=== PATIENT | female | born 1970 | race Caucasian/White ===

== ENCOUNTER 2020-04-19 09:34 | Outpatient (REF) | payer OTHER, SELFPAY ==
[2020-04-19 11:40] LABS: Cholesterol 150 mg/dL; HDL Cholesterol 50 mg/dL; LDL Cholesterol Calculated 76 mg/dl; Triglycerides 124 mg/dL
[2020-04-19 11:45] LABS: Microalbum/Creatinine Ratio Ur 40.6 ug/mg cr
== END 2020-04-19 09:35 | disposition home or self-care (01) ==
LOC: HO.WFDLDS 09:34
PROVIDERS: Visit Provider Family Medicine
DX: Z20.828 Contact with and (suspected) exposure to other viral communicable diseases (principal); E11.65 Type 2 diabetes mellitus with hyperglycemia; E78.5 Hyperlipidemia, unspecified; Z00.00 Encounter for general adult medical examination without abnormal findings; Z13.9 Encounter for screening, unspecified
CPT/HCPCS: 80061; 82043; 87635

== ENCOUNTER 2021-06-19 11:33 | Outpatient (REF) | payer OTHER, SELFPAY ==
[2021-06-19 16:19] LABS: Influenza A PCR NEGATIVE (Negative); Influenza B PCR NEGATIVE (Negative); Resp Syncy Virus RNA Qual PCR NEGATIVE (Negative); SARS COV2 PCR INHOUSE POSITIVE (Negative)
== END 2021-06-19 11:34 | disposition home or self-care (01) ==
LOC: HO.LAB 11:33
PROVIDERS: Visit Provider Family Medicine
DX: Z20.822 Contact with and (suspected) exposure to COVID-19 (principal); B34.9 Viral infection, unspecified
CPT/HCPCS: 0241U

== ENCOUNTER 2021-08-26 09:58 | Outpatient (REF) | payer OTHER, SELFPAY ==
[2021-08-27 13:04] LABS: H Pylori Breath Test Negative (Negative)
== END 2021-08-26 09:59 | disposition home or self-care (01) ==
LOC: HO.LNP 09:58
PROVIDERS: PCP Family Medicine; Referring Provider Family Medicine; Visit Provider Nurse Practitioner Family
DX: Z01.818 Encounter for other preprocedural examination (principal); K21.9 Gastro-esophageal reflux disease without esophagitis; K62.5 Hemorrhage of anus and rectum; K58.1 Irritable bowel syndrome with constipation; K64.9 Unspecified hemorrhoids
CPT/HCPCS: 83013

== ENCOUNTER 2021-09-07 09:16 | Outpatient (REF) | payer OTHER, SELFPAY ==
[2021-09-07 10:29] LABS: Estimated Average Glucose 318 mg/dL; Hemoglobin A1c % 12.7 %
[2021-09-07 10:34] LABS: Alanine Aminotransferase 18 U/L (0-31); Alkaline Phosphatase 76 U/L (39-117); Anion Gap 13 (12-20); Aspartate Amino Transferase 12 U/L (5-31); Bilirubin Total 0.8 mg/dL (0.0-1.0); Blood Urea Nitrogen 11 mg/dL (9-16); Calcium 9.3 mg/dL (8.4-10.2); Carbon Dioxide 28 mmol/L (22-29); Chloride 101 mmol/L (96-108); Cholesterol 155 mg/dL; Estimated Glomerular Filt Rate > 60; Glucose Fasting 315 mg/dL (60-99); HDL Cholesterol 44 mg/dL; LDL Cholesterol Calculated 78 mg/dl; Potassium 4.3 mmol/L (3.3-5.1); Sodium 138 mmol/L (135-145); Total Protein 6.8 g/dL (6.5-8.0); Triglycerides 165 mg/dL
[2021-09-07 10:55] LABS: TSH reflex Free T4 0.85 uIU/mL (0.32-4.0)
[2021-09-07 11:06] LABS: Creatinine Urine 100.18 mg/dL; Microalbum/Creatinine Ratio Ur 15.9 ug/mg cr
== END 2021-09-07 09:17 | disposition home or self-care (01) ==
LOC: HO.LAB 09:16
PROVIDERS: PCP Family Medicine; Visit Provider Family Medicine
DX: Z00.00 Encounter for general adult medical examination without abnormal findings (principal); R73.01 Impaired fasting glucose; I10 Essential (primary) hypertension
CPT/HCPCS: 36415; 80053; 80061; 82043; 83036; 84443

== ENCOUNTER 2021-10-04 10:25 | Day surgery (SDC) | payer OTHER, SELFPAY ==
[2021-10-04 10:32] VITALS: BMI 30.5
[2021-10-04 10:39] VITALS: BP 155/68; PULSE 79; RESP 16; TEMP 36.3; O2SAT 98
--- NOTE | 2021-10-04 10:49 | P.CONAN_ITS ---
FORM[facility], [facility] Active Problems Active Problems: All Active Problems (Updated 08/06/21 @ 15:48 by Cj Rosas) COVID-19 (Acute) Viral illness (Acute) Palpitations (Acute) Anxiety (Acute) Hyperlipidemia (Acute) Diabetes type 2, uncontrolled (Acute) Diabetes mellitus type 2 in obese (Acute) Family History Family History Father Diabetes Hypertension Mother Hypertension Maternal Grandmother Cancer Family history of problems with anesthesia: No Surgical History Surgical History No pertinent past surgical history History of Problems with Anesthesia: No Social History Social History Housing: House Alcohol intake: never Patient Tobacco Use Status: Never used Tobacco e-Cigarette/Vaping Use: Never Used Use of substances other than those prescribed or required for medical reasons: No Are you DNR?: No Advance Directives: No Advance Directives Information Provided: Yes service: No Current occupational status: employed Cognitive needs: No Hearing needs: No Vision needs: No Meds Allergies Allergy/AdvReac Type Severity Reaction Status Date / Time No Known Allergies Allergy Verified 10/04/21 10:31 Home Medications Medication Instructions Recorded Confirmed Last Taken Type aspirin 81 mg tablet,delayed 81 mg PO DAILY 04/05/20 08/26/21 10/01/21 History release cetirizine 10 mg capsule (Zyrtec) 10 mg PO DAILY 04/05/20 08/26/21 Unknown History Exam Exam Date and Time: October 04, 2021 1049 Height,Weight and Vital Signs: Height 5 ft 2 in Weight 75.75 kg Last Vital Signs Temp 97.3 F 10/04/21 10:39 Pulse 79 10/04/21 10:39 Resp 16 10/04/21 10:39 BP 155/68 H 10/04/21 10:39 Pulse Ox 98 10/04/21 10:39 Airway Mallampati Class: III TM Dist: >3cm Neck ROM: Full Assessment and Plan Assessment Anesthesia Assessment: Anesthesia Plan Discussed and Chart Reviewed Final Anesthetic Review Family History of Problems with Anesthesia: No History of Problems with Anesthesia: No NPO: Yes ASA Class: II Final Preanesthetic Review: No Changes in Pt Med Stat, Meds/Allgs Chart Reviewed, Consent Obtained/Reviewed and Anes Risks/Benef Reviewed Patient Risk: Intermediate Procedure Risk: Low Anesthetic Plan Anesthetic Plan: MAC: Disposition: Standard PACU
[2021-10-04 11:07] LABS: Glucose, Whole Blood 162 mg/dL (60-115)
--- NOTE | 2021-10-04 11:12 | MHC.SHP ---
Pre-Procedural Eval Section A Date of Service: 10/04/21 Section B Chief Complaint: screening,reflux disease Relevant Family History (Specify if Yes): No Relevant Social History: None Present Medications: see Short Stay Collaborative assessment Medical History: Significant History (Anxiety Hyperlipidemia Diabetes mellitus type 2 in obese ) History of Previous Operations: No relevant previous surgery Allergies: Allergies Allergy/AdvReac Type Severity Reaction Status Date / Time No Known Allergies Allergy Verified 10/04/21 10:31 Review of Systems Sugical H&P ROS: Negative: Constitution, Cardiovascular, Respiratory, Neurological, Psychiatric, Hem-Onc, Allergic/Immunologic, Gastrointestinal, Genitourinary, Musculoskeletal, Integumentary, Endocrine and Eyes/Ears/Nose/Throat Exam Surgical H&P Exam: Normal: HEENT, Normal: Heart, Normal: Lungs, Normal: Extremities, Normal: Abdomen, Normal: Skin and Normal: Neurological Plan Diagnosis/Plan: Unchanged I have reviewed the history and physical and performed a pertinent physical examination on my patient. No changes have occurred unless specified.
--- NOTE | 2021-10-04 11:14 | P.OP_ITS ---
Operative Note Operative Note Date of Service: 10/04/21 Narrative: Operative Information Procedure Description: EGD, Colonoscopy Indication: reflux and colon screening Anesthesia: MAC FLEXIBLE TRANSORAL UPPER GASTROINTESTINAL ENDOSCOPY AND COLONOSCOPY PROCEDURE NOTE UPPER ENDOSCOPY Consent: Indications for the procedure and potential complications of bleeding, perforation, reaction to medications and missed diagnosis were discussed with the patient and informed consent was obtained. Instrument: Olympus GIF H 190 J mid size upper endoscope Monitoring: Vital signs and clinical assessment, continuous EKG monitoring, Pulse oximetry, Carbon Dioxide monitoring and blood pressure monitoring were done throughout the procedure. Procedure: The patient was placed in the left lateral decubitis position and pre-procedure medications were administered and a bite block was placed. The endoscope was inserted into the mouth and advanced under direct vision to the third part of duodenum. A careful inspection was made as the upper endoscope was withdrawn including a retroflexed examination of the proximal stomach; Findings and interventions are described below. Findings: Larynx:normal Esophagus: GE junction at 34 cm, diaphragm hiatus at 34 cm, partial non obstructive schatzki ring noted, irregular Z line, bx taken Stomach: mild patchy erythema. Biopsies were obtained. Grade 2 flap valve on retroflexed examination of the cardia. Duodenum: Normal bulb and descending duodenum, Intervention: Biopsies as noted above COLONOSCOPY Instrument: Olympus variable stiffness pediatric scope 190L Colonoscopy Monitoring: Vital signs and clinical assessment, continuous EKG monitoring, Pulse oximetry, Carbon Dioxide monitoring and blood pressure monitoring were done throughout the procedure. Colon withdrawal time was 11 minutes. Procedure: The patient was placed in the left lateral decubitis position and pre-procedure medications were administered. After a digital rectal examination of the ano-rectum, the video colonoscope was inserted into the rectum and advanced through the colon to the cecum/TI. The colonoscope was slowly withdrawn in a retrograde panoramic fashion and the colon mucosa was carefully examined including a retroflexed view of the rectum. Findings and interventions are described below. Procedure Difficulty:easy Findings: Terminal Ileum-normal Cecum:normal Ascending Colon: 10 mm sessile polyp removed with cold snare but not retrieved Transverse Colon -normal Descending Colon:normal Sigmoid Colon: normal Rectum: Retroflexion with small internal hemorrhoids, grade I with skin tags noted Anorectum - normal Colon preparation: [place] Bowel Preparation Scale Right colon; 2 Transverse colon: 2 Left colon; 1-2 (0 = Unprepared colon segment with mucosa not seen due to solid stool that cannot be cleared. 1 = Portion of mucosa of the colon segment seen, but other areas of the colon segment not well seen due to staining, residual stool and/or opaque liquid. 2 = Minor amount of residual staining, small fragments of stool and/or opaque liquid, but mucosa of colon segment seen well. 3 = Entire mucosa of colon segment seen well with no residual staining, small fragments of stool or opaque liquid) Impression and Post Procedure Diagnosis: Endoscopy Findings: gastritis schatzki ring Colonoscopy Findings: polyp internal hemorrhoids Plan: Await Pathology results Repeat Colonoscopy in 5 years due to polyp removed and equivocal prep on left colon or earlier if clinically indicated High fiber diet leaflet avoid straining at stool, epsom salts and sitz bath, anusol supps or cream cont with PPi since helping her symptoms Above findings were reviewed with the patient and relevant handouts were provided if indicated.
--- NOTE | 2021-10-04 11:14 | P.BOP_ITS ---
Brief Operative Note Date of Service: 10/04/21 Pre-op diagnosis: reflux and colon screening Post-op diagnosis: same Procedure: see op note Surgeon: Gato Carmichael MD Anesthesia: MAC Was an Sales Consulting Director used for this Procedure?: No Estimated blood loss (mL): 0 Condition: stable Disposition: PACU
[2021-10-04 11:49] VITALS: BP 130/62; PULSE 85; RESP 16; TEMP 37.1; O2SAT 100
[2021-10-04 12:09] VITALS: BP 121/63; PULSE 83; RESP 16; TEMP 36.7; O2SAT 97
== END 2021-10-04 12:32 | disposition home or self-care (01) ==
PROVIDERS: PCP Family Medicine; Visit Provider Internal Medicine Gastroenterology
PROC: (CPT 45385; principal; 2021-10-04 11:40)
DX: Z12.11 Encounter for screening for malignant neoplasm of colon (principal); Z83.71 Family history of colonic polyps; K63.5 Polyp of colon; K64.0 First degree hemorrhoids; K64.4 Residual hemorrhoidal skin tags; K58.1 Irritable bowel syndrome with constipation; K21.9 Gastro-esophageal reflux disease without esophagitis; K29.50 Unspecified chronic gastritis without bleeding; K22.2 Esophageal obstruction; K44.9 Diaphragmatic hernia without obstruction or gangrene; E11.9 Type 2 diabetes mellitus without complications; E78.5 Hyperlipidemia, unspecified; Z79.82 Long term (current) use of aspirin; Z79.84 Long term (current) use of oral hypoglycemic drugs; Z79.899 Other long term (current) drug therapy
CPT/HCPCS: 45385; 43239; 82947; 88305; 88342

== ENCOUNTER → 2021-10-15 09:52 | Outpatient (BNVA) | payer OTHER, SELFPAY | PROVIDERS: PCP Family Medicine; Referring Provider Family Medicine; Visit Provider Nurse Practitioner Family | DX: Z13.89 Encounter for screening for other disorder (principal) ==

== ENCOUNTER 2023-06-17 09:28 | Outpatient (REF) | payer OTHER, SELFPAY ==
[2023-06-17 09:58] LABS: Estimated Average Glucose 352 mg/dL; Hemoglobin A1c % 13.9 % (<6.0)
[2023-06-17 10:00] LABS: Appearance Urine Cloudy; Color Urine Yellow; Glucose Urine UA >=1000 mg/dL (Negative); Leukocyte Esterase Urine Trace (Negative); Nitrite Urine Negative (Negative); PH 5.5 (5.0-9.0); Specific Gravity - Urine >= 1.030 (1.005-1.025); UMIC TRIGGER UA YES; Urine Blood Small (1+) (Negative); Urine Ketones Trace mg/dL (Negative); Urine Protein Trace mg/dL (Neg-Trace)
[2023-06-17 10:03] LABS: Bacteria Urine Trace (None Seen); Hyaline Casts Urine 0-2 /LPF (0-2)
[2023-06-17 10:30] LABS: Creatinine Urine 162.25 mg/dL; Microalbum/Creatinine Ratio Ur 43.1 ug/mg cr (<30)
[2023-06-17 10:39] LABS: Alanine Aminotransferase 19 U/L (0-31); Albumin Level 4.1 g/dL (3.5-5.0); Alkaline Phosphatase 88 U/L (39-117); Anion Gap 16 (12-20); Aspartate Amino Transferase 14 U/L (5-31); Bilirubin Total 0.6 mg/dL (0.0-1.0); Blood Urea Nitrogen 11 mg/dL (9-16); Calcium 9.4 mg/dL (8.4-10.2); Carbon Dioxide 27 mmol/L (22-29); Chloride 100 mmol/L (96-108); Cholesterol 175 mg/dL (<200); Estimated Glomerular Filt Rate > 60; Glucose Fasting 325 mg/dL (60-99); HDL Cholesterol 49 mg/dL (>40); LDL Cholesterol Calculated 78 mg/dL (<100); Potassium 3.9 mmol/L (3.3-5.1); Sodium 139 mmol/L (135-145); Total Protein 7.4 g/dL (6.5-8.0); Triglycerides 242 mg/dL (<150)
[2023-06-17 10:46] LABS: TSH reflex Free T4 2.56 uIU/mL (0.32-4.0)
== END 2023-06-17 09:29 | disposition home or self-care (01) ==
LOC: HO.LAB 09:28
PROVIDERS: PCP Family Medicine; Visit Provider Family Medicine
DX: Z00.00 Encounter for general adult medical examination without abnormal findings (principal); I10 Essential (primary) hypertension; R73.01 Impaired fasting glucose
CPT/HCPCS: 36415; 80053; 80061; 81001; 82043; 82570; 83036; 84443

== ENCOUNTER 2023-06-17 14:21 | Outpatient (AMB) | payer OTHER, SELFPAY ==
--- NOTE | 2023-06-17 14:35 | MHC.PC.OV ---
Vital Signs 06/17/23 14:36 Height 5 ft 4 in Weight 138 lb 8 oz BMI 23.8 BP 128/74 Blood Pressure Location Lt brachial Position Standing Pulse 82 Pulse Source Pulse Oximeter Pulse Oximetry (%) 98 Oxygen Delivery Method Room Air Intake Visit Reasons: f/u diabetes Intake Note: Patient is here to follow up on diabetes. Patient complains of itchiness in left ear with a little pain. Patient had [facility] appointment at [phone], Dr. Kunz. Allergies No Known Allergies Allergy (Verified 06/17/23 14:37) Tobacco use date assessed: 06/17/23 HPI f/u diabetes HPI Details 52 y/o female presents to f/u diabetes. Cost significant barrier to her care so had asked nurse navigator for help with this. Had added Januvia last office visit in September. Last A1c 10/03/22 12.5%. A1c today 06/17/23 13.9%. She is on glipizide 10mg b.i.d, metformin 500mg b.i.d. She is no longer on Januvia, insulin glargine. She notes she had felt comfortable with Trulicity but had been unable to obtain this along with insulin glargine due to insurance issues. Pt reports polydipsia/polyuria. She reports she will see endocrinology in August. HPI Comments History of Present Illness Details Documentation assistance for Ludwin Mathew MD, was provided by Cj Rosas,? [employer] on 06/17/2023 3:06 PM GEOVANNA. Luca, Dr. Mathew, have read, observed, and verified documentation.? [facility] Surgical History No pertinent past surgical history Family History Father Diabetes Hypertension Mother Hypertension Maternal Grandmother Cancer Social History Housing: House Alcohol intake: never Patient Tobacco Use Status: Never used Tobacco e-Cigarette/Vaping Use: Never Used Second Hand Smoke Exposure: No service: No Current occupational status: employed Current occupational exposures/hazards: No Cognitive needs: No Hearing needs: No Vision needs: No Questionnaire PHQ-9 Over the last 2 weeks, how often have you been bothered by any of the following problems? 1. Little interest or pleasure in doing things: not at all 2. Feeling down, depressed, or hopeless: not at all 3. Trouble falling or staying asleep, or sleeping too much: not at all 4. Feeling tired or having little energy: not at all 5. Poor appetite or overeating: not at all 6. Feeling bad about yourself - or that you are a failure or have let yourself or your family down: not at all 7. Trouble concentrating on things, such as reading the newspaper or watching television: not at all 8. Moving or speaking so slowly that other people could have noticed. Or the opposite - being so fidgety or restless that you have been moving around a lot more than usual: not at all 9. Thoughts that you would be better off or of hurting yourself in some way: not at all Total score: 0 Source: Developed by Drs. Jerrell Warren, Radha Brantley, Stanley Boone and colleagues, with an educational donny from [employer]. Thrive Questionnaire Date Thrive assessed: 08/06/21 AUDIT C Alcohol Use Questionnaire (AUDIT-C) 1. How often do you have a drink containing alcohol?: Never 2. How many drinks containing alcohol do you have on a typical day when you are drinking?: 1 or 2 (on occasion) 3. How often do you have six or more drinks on one occasion?: Never Total Score: 0 HOLDEN-7 AMB Questionnaire HOLDEN-7 Date HOLDEN - 7 assessed: 06/17/23 Feeling nervous, anxious, or on edge: 0 = Not at all Not being able to stop or control worryin = Not at all Worrying too much about different things: 0 = Not at all Trouble relaxin = Not at all Being so restless that it is hard to sit still: 0 = Not at all Becoming easily annoyed or irritable: 0 = Not at all Feeling afraid as if something awful might happen: 0 = Not at all Total HOLDEN-7 score (0-4 normal; 5-9 mild; 10-14 moderate; 15-21 severe): 0 Source: Developed by Drs. Jerrell Warren, Stanley Magana and colleagues, with an educational donny from [employer]. Review of Systems Const Denies chills, Denies fatigue, Denies fever(s), Denies headache(s) and Denies weakness ENT Denies dizziness and Denies headache(s) Card Denies chest pain, Denies lightheadedness, Denies dyspnea and Denies other (Palpitations) Resp Denies cough, Denies dyspnea, Denies wheezing and Denies other ( shortness of breath) Musc Denies numbness and Denies tingling Neuro Denies dizziness, Denies headache(s), Denies numbness, Denies tingling, Denies paresthesias and Denies weakness Psych Denies anxiety and Denies depression Endo Denies fatigue, Reports polydipsia and Reports polyuria Aller/Immun Denies wheezing Physical exam (Primary Care) Vital Signs: Last Vital Signs Pulse 82 06/17/23 14:36 BP 128/74 06/17/23 14:36 Pulse Ox 98 06/17/23 14:36 Oxygen Delivery Method Room Air 06/17/23 14:36 BMI result Body Mass Index 23.8 Tobacco/Smoking Status: Tobacco use Status Tobacco use date assessed 06/17/23 06/17/23 14:39 Patient Tobacco Use Status Never used Tobacco 06/17/23 14:39 e-Cigarette/Vaping Use Never Used 06/17/23 14:39 PHQ-9: PHQ-9 Score PHQ-9: Total score 0 06/17/23 14:46 Thrive Assessment: Date of Thrive Assessment Date Thrive assessed 08/06/21 06/17/23 14:39 Const General: no acute distress and well developed Nutritional Appearance: well nourished Orientation/consciousness: patient oriented x3 [facility]: Yes normocephalic and Yes atraumatic Eyes General: appearance normal, both eyes and all related structures Pupils: Equal, round and reactive pupils present EOM: EOMs intact bilaterally Resp Effort & Inspection: normal respiratory effort Auscultation: clear to auscultation bilaterally Cardio Rate: regular rate Rhythm: regular rhythm Heart sounds: S1 normal heart sound present, S2 normal heart sound present, no gallops, no murmurs and no rubs Neuro General: patient oriented x3 and gait normal Cranial nerves: Yes Equal, round and reactive pupils present Psych Affect: normal affect Assessment and Plan Assessment & Plan (1) Diabetes type 2, uncontrolled: Code(s): E11.65 - Type 2 diabetes mellitus with hyperglycemia Plan: Ongoing?and?longstanding?uncontrolled?diabetes. A1c?13.9%?and?goal?is?less?than?7.0%. She?notes?increased?thirst?and?increased?urination.??She?has?increased?microalbumin?in?urine Will?try?Levemir?and?she?would?still?like?to?try?Trulicity. Continue?oral?medication Check BS 2 times a day Follow-up?in?2?months (2) Microalbuminuria: Code(s): R80.9 - Proteinuria, unspecified Plan: Increased?albumin?in?urine?and?we?discussed?that?this?is?likely?secondary?to?longstanding?high?blood?sugar Encouraged?improved?blood?sugar?control If not improving, may need RHYS/ARB therapy (3) Right foot pain: Code(s): M79.671 - Pain in right foot Plan: Exam?is?within?normal?limits Referred?to?Podiatry?as?patient?also?has?uncontrolled?diabetes (4) Diabetic nephropathy: Code(s): E11.21 - Type 2 diabetes mellitus with diabetic nephropathy Plan: As above Orders: Referrals Podiatry Referral E11.65 - Type 2 diabetes mellitus with hyperglycemia, M79.671 - Pain in right foot Medications: New insulin detemir U-100 (Levemir FlexPen) 100 units subcut DAILY 30 days 30 mL 2RF E11.21 - Type 2 diabetes mellitus with diabetic nephropathy, E11.65 - Type 2 diabetes mellitus with hyperglycemia blood sugar diagnostic (OneTouch Verio test strips) As directed 400 ea 4RF DX: E11.9, test blood sugar twice a day, 90 day E11.69 - Type 2 diabetes mellitus with other specified complication, E66.9 - Obesity, unspecified blood-glucose meter (OneTouch Verio Flex Meter) Test BS As directed, 999 days 1 ea 0RF E11.21 - Type 2 diabetes mellitus with diabetic nephropathy, E11.65 - Type 2 diabetes mellitus with hyperglycemia lancets Test BS 2 times a day As directed, 90 days 200 ea 3RF E11.21 - Type 2 diabetes mellitus with diabetic nephropathy, E11.65 - Type 2 diabetes mellitus with hyperglycemia Refilled dulaglutide 1.5 mg (0.5 mL) subcut QWEEK 90 days 6.5 mL 2RF E11.69 - Type 2 diabetes mellitus with other specified complication, E66.9 - Obesity, unspecified metformin 500 mg PO BID 30 days 60 tabs 0RF Coding Level of Care Code Est Pt Level 4 (73169) Diagnoses Diabetes type 2, uncontrolled E11.65 Microalbuminuria R80.9 Right foot pain M79.671 Diabetic nephropathy E11.21
[2023-06-17 14:36] VITALS: BP 128/74; PULSE 82; O2SAT 98; BMI 23.8
== END 2023-06-17 15:25 | disposition home or self-care (01) ==
PROVIDERS: PCP Family Medicine; Visit Provider Family Medicine
DX: E11.65 Type 2 diabetes mellitus with hyperglycemia (principal); R80.9 Proteinuria, unspecified; M79.671 Pain in right foot; E11.21 Type 2 diabetes mellitus with diabetic nephropathy
CPT/HCPCS: 99214

== ENCOUNTER 2023-07-02 12:52 | Outpatient (AMB) | payer OTHER, SELFPAY ==
[2023-07-02 12:54] VITALS: BP 118/68; PULSE 83; BMI 31.7
--- NOTE | 2023-07-02 12:54 | A.OFFPC_ITS ---
Vital Signs 07/02/23 12:54 Height 5 ft 1.25 in Weight 169 lb BMI 31.7 BP 118/68 Blood Pressure Location Rt brachial Position Sitting Pulse 83 Pulse Source Pulse Oximeter Intake Visit Reasons: Elev BP Intake Note: Patient is here with elevated blood pressure and high blood sugar, and headaches. Allergies No Known Allergies Allergy (Verified 06/17/23 14:37) Tobacco use date assessed: 07/02/23 HPI Elev BP HPI Details 53 y/o female presents to f/u elevated b lood pressure reading and diabetes. Ongoing c/o elevated blood sugars, and now has c/o high BPs and headaches. Pt reports morning blood sugar had been in the 300s. Blood pressure today is fine at 118/68. She is not on any medications for blood pressure. She notes a medical affairs manager had checked her blood pressure and was 177/93 Thursday. She states she does have a way to check her blood pressure at home. [facility] Surgical History No pertinent past surgical history Family History Father Diabetes Hypertension Mother Hypertension Maternal Grandmother Cancer Social History Housing: House Alcohol intake: never Patient Tobacco Use Status: Never used Tobacco e-Cigarette/Vaping Use: Never Used Second Hand Smoke Exposure: No service: No Current occupational status: employed Current occupational exposures/hazards: No Cognitive needs: No Hearing needs: No Vision needs: No Questionnaire Thrive Questionnaire Date Thrive assessed: 08/06/21 HOLDEN-7 AMB Questionnaire HOLDEN-7 Date HOLDEN - 7 assessed: 06/17/23 Source: Developed by Drs. Jerrell Warren, Radha Brantley, Stanley Boone and colleagues, with an educational donny from [employer]. Review of Systems Const Reports headache(s) ENT Reports headache(s) Neuro Reports headache(s) Physical exam (Primary Care) Vital Signs: Last Vital Signs Pulse 83 07/02/23 12:54 BP 118/68 07/02/23 12:54 BMI result Body Mass Index 31.7 Tobacco/Smoking Status: Tobacco use Status Tobacco use date assessed 07/02/23 07/02/23 13:01 Patient Tobacco Use Status Never used Tobacco 07/02/23 13:01 e-Cigarette/Vaping Use Never Used 07/02/23 13:01 Thrive Assessment: Date of Thrive Assessment Date Thrive assessed 08/06/21 07/02/23 13:01 Assessment and Plan Assessment & Plan (1) Diabetes type 2, uncontrolled: Code(s): E11.65 - Type 2 diabetes mellitus with hyperglycemia Plan: Blood?sugars?in?3?to?500s?range?on?just?some?metformin?and?glipizide. She?has?not?been?able?to?get?insulins?or?Trulicity. She?has?changed?insurance?and?Lantus?is?now?covered. Start?Lantus?10?units?q.p.m.?and?we?will?likely?need?to?increase?this Patient?would?still?like?to?try?Trulicity?which?she?was?able?to?procure?for?shor t?time?and?says?that?it?was?helping?with?appetite?and?weight?loss. Will?also?send?a?script?for?Trulicity?and?this?will?likely?require?a?prior?Auth Continue?glipizide?and?metformin?for?now Close?follow-up;?she?has?an?appointment?in?July (2) Proteinuria: Code(s): R80.9 - Proteinuria, unspecified Plan: She?has?history?of?diabetes?and?has?had?protein?in?her?urine Also?noting?some?elevated?blood?pressures Start?lisinopril?5?mg?daily. (3) Hypertension: Code(s): I10 - Essential (primary) hypertension Plan: Blood?pressures?have?been?elevated?at?times. She?notes?this?is?happening?with?headaches.??Pattern?of?her?headaches?appears?to ?be?tension?style?headac hes?and?this?is?likely?the?cause?of?her?increase?in?blood?pressure?rather?than?t he?other?way?around. Starting?lisinopril?as?she?also?has?protein?urea?and?diabetes. (4) Tension headache: Code(s): G44.209 - Tension-type headache, unspecified, not intractable Plan: This?appears?to?be?tension ?style?headaches?with?posterior?headache?and?neck?pain?as?well?as?bandlike?heada ches. Start?physical?therapy (5) Cervicalgia: Code(s): M54.2 - Cervicalgia Plan: As?above,?start?physical?therapy Orders: Orders 2 PT Evaluation and Treatment Today G44.209 - Tension-type headache, unspecified, not intractable, M54.2 - Cervicalgia Medications: New lisinopril 5 mg PO DAILY 30 tabs 1RF 30 days pen needle, diabetic (BD Ultra-Fine Micro Pen Needle) To treat high blood sugar QPM. As directed, 90 days 100 ea 3RF E11.65 - Type 2 diabetes mellitus with hyperglycemia insulin glargine (Lantus Solostar U-100 Insulin) 10 units (0.1 mL) subcut QPM 30 days 3 mL 3RF Discontinued insulin detemir U-100 (Levemir FlexPen) Discontinued Reason: Doctor's Order 100 units subcut DAILY 30 days 30 mL 2RF E11.21 - Type 2 diabetes mellitus with diabetic nephropathy, E11.65 - Type 2 diabetes mellitus with hyperglycemia Coding Level of Care Code Est Pt Level 4 (26577) Diagnoses Diabetes type 2, uncontrolled E11.65 Proteinuria R80.9 Hypertension I10 Tension headache G44.209 Cervicalgia M54.2
== END 2023-07-02 13:32 | disposition home or self-care (01) ==
PROVIDERS: PCP Family Medicine; Visit Provider Family Medicine
DX: E11.65 Type 2 diabetes mellitus with hyperglycemia (principal); R80.9 Proteinuria, unspecified; I10 Essential (primary) hypertension; G44.209 Tension-type headache, unspecified, not intractable; M54.2 Cervicalgia
CPT/HCPCS: 99214

== ENCOUNTER 2023-08-12 11:23 | Outpatient (AMB) | payer OTHER, SELFPAY ==
[2023-06-24 10:04] VITALS: BMI 28.8
--- NOTE | 2023-06-24 10:04 | MHC.OFFVIS ---
Intake Vital Signs 06/24/23 10:04 Height 5 ft 4 in Weight 168 lb BMI 28.8 Intake Visit Reasons: f/u diabetes Allergies No Known Allergies Allergy (Verified 06/17/23 14:37) PFSH Surgical History No pertinent past surgical history Family History Father Diabetes Hypertension Mother Hypertension Maternal Grandmother Cancer Social History Housing: House Alcohol intake: never Patient Tobacco Use Status: Never used Tobacco e-Cigarette/Vaping Use: Never Used Second Hand Smoke Exposure: No service: No Current occupational status: employed Current occupational exposures/hazards: No Cognitive needs: No Hearing needs: No Vision needs: No Coding
--- NOTE | 2023-08-12 11:33 | A.OFFPC_ITS ---
Vital Signs 06/24/23 10:04 08/12/23 11:39 Height 5 ft 4 in 5 ft 1.25 in Weight 168 lb 165 lb BMI 28.8 30.9 BP 120/68 Blood Pressure Location Lt brachial Position Sitting Intake Visit Reasons: f/u diabetes Intake Note: Patient is here to follow up on diabetes. Allergies No Known Allergies Allergy (Verified 08/12/23 11:34) Tobacco use date assessed: 08/12/23 Dental Screening Dental Screen Date: 08/12/23 Did you have a dental visit in the last 12 months?: Yes Did you have a dental problem in the last 6 months where you did not have access to dental care?: No Was dental information given to patient?: Patient has dentist HPI f/u diabetes HPI Details 53 y/o female presents to f/u diabetes a nd also tension style headaches and BP. Had started her on lantus and restarted Trulicity. Continued metformin and glipizide. Blood pressure today 120/68. She is on lisinopril 5mg. A1c today 08/12/23 14.0%. She reports she always takes her meds in the morning but sometimes forgets in the afternoons. [facility] Surgical History No pertinent past surgical history Family History Father Diabetes Hypertension Mother Hypertension Maternal Grandmother Cancer Social History Housing: House Alcohol intake: never Patient Tobacco Use Status: Never used Tobacco e-Cigarette/Vaping Use: Never Used Second Hand Smoke Exposure: No service: No Current occupational status: employed Current occupational exposures/hazards: No Cognitive needs: No Hearing needs: No Vision needs: No Questionnaire PHQ-9 Over the last 2 weeks, how often have you been bothered by any of the following problems? 1. Little interest or pleasure in doing things: not at all 2. Feeling down, depressed, or hopeless: not at all 3. Trouble falling or staying asleep, or sleeping too much: not at all 4. Feeling tired or having little energy: not at all 5. Poor appetite or overeating: not at all 6. Feeling bad about yourself - or that you are a failure or have let yourself or your family down: not at all 7. Trouble concentrating on things, such as reading the newspaper or watching television: not at all 8. Moving or speaking so slowly that other people could have noticed. Or the opposite - being so fidgety or restless that you have been moving around a lot more than usual: not at all 9. Thoughts that you would be better off or of hurting yourself in some way: not at all Total score: 0 Source: Developed by Drs. Jerrell Warren, Radha Brantley, Stanley Boone and colleagues, with an educational donny from [employer]. Thrive Questionnaire Date Thrive assessed: 08/12/23 I am a: Patient What is your living situation today?: I have a steady place to live Within the past 12 months, did the food you bought not last and you didn't have the money to get more?: Never true Within the past 12 months, did you worry whether your food would run out before you got money to buy more?: Never true Do you have trouble paying for medicines?: No Do you have trouble getting transportation to medical appointments?: No Do you have trouble paying your heating and electricity bill?: No Do you have trouble taking care of your child, family member or friend?: No Do you have trouble with day-to-day activities such as bathing, preparing meals, shopping, managing finances, etc.?: No Are you currently unemployed and looking for a job?: No Are you interested in more education?: No THRIVE Score: 0 AUDIT C Alcohol Use Questionnaire (AUDIT-C) 1. How often do you have a drink containing alcohol?: Never 3. How often do you have six or more drinks on one occasion?: Never Total Score: 0 HOLDEN-7 AMB Questionnaire HOLDEN-7 Date HOLDEN - 7 assessed: 08/12/23 Feeling nervous, anxious, or on edge: 0 = Not at all Not being able to stop or control worryin = Not at all Worrying too much about different things: 0 = Not at all Trouble relaxin = Not at all Being so restless that it is hard to sit still: 0 = Not at all Becoming easily annoyed or irritable: 0 = Not at all Feeling afraid as if something awful might happen: 0 = Not at all Total HOLDEN-7 score (0-4 normal; 5-9 mild; 10-14 moderate; 15-21 severe): 0 Source: Developed by Drs. Jerrell Warren, Radha Brantley, Stanley Boone and colleagues, with an educational donny from [employer]. Review of Systems Const Denies chills, Denies fatigue, Denies fever(s), Denies headache(s) and Denies weakness ENT Denies dizziness and Denies headache(s) Card Denies dyspnea Resp Denies cough, Denies dyspnea, Denies wheezing and Denies other (shortness of breath) Musc Denies numbness and Denies tingling Neuro Denies dizziness, Denies headache(s), Denies numbness, Denies tingling and Denies weakness Psych Denies anxiety and Denies depression Endo Denies fatigue Aller/Immun Denies wheezing Physical exam (Primary Care) Vital Signs: Last Vital Signs BP 120/68 08/12/23 11:39 BMI result Body Mass Index 30.9 Tobacco/Smoking Status: Tobacco use Status Tobacco use date assessed 08/12/23 08/12/23 11:35 Patient Tobacco Use Status Never used Tobacco 08/12/23 11:35 e-Cigarette/Vaping Use Never Used 08/12/23 11:35 PHQ-9: PHQ-9 Score PHQ-9: Total score 0 08/12/23 11:47 Thrive Assessment: Date of Thrive Assessment Date Thrive assessed 08/12/23 08/12/23 11:41 Const General: well developed; No acute distress Nutritional Appearance: well nourished Orientation/consciousness: patient oriented x3 [facility] Head: Yes normocephalic and Yes atraumatic Eyes General: appearance normal, both eyes and all related structures Pupils: Equal, round and reactive pupils present EOM: EOMs intact bilaterally Resp Effort & Inspection: normal respiratory effort Auscultation: clear to auscultation bilaterally Cardio Rate: regular rate Rhythm: regular rhythm Heart sounds: S1 normal heart sound present, S2 normal heart sound present, no gallops, no murmurs and no rubs Neuro General: patient oriented x3 and gait normal Cranial nerves: Yes Equal, round and reactive pupils present Psych Affect: normal affect Results AMB Hemoglobin A1c AMB Hemoglobin A1c 14.0 % Last Edit by Sara Coates CMA on 08/12/23 12:04 Assessment and Plan Assessment & Plan (1) Diabetes type 2, uncontrolled: Code(s): E11.65 - Type 2 diabetes mellitus with hyperglycemia Plan: Ongoing?uncontrolled?diabetes?with?many?barriers?to?good?control?including?consi stency?of?her?regimen?and?ability?to?obtain?her?medications?and ?have?them?paid?for. Patient?did?not?think?Lantus?was?covered?but?we more?recently?discovered?it?is. She?notes?that?her?co-pay?is?0?dollars?for?Lantus. Advised?we?lean?more?heavily?into?using?Lantus?and?she?agrees. Will?increase?Lantus?from?10?units?daily?to?16?units?daily?and?follow- up?closely?to?continue?adjusting?this. She?has?been?unable?to?get?Trulicity?at?current?dose?so?we?will?start?[facility]?at?0.75?mg?weekly Continue?oral?medications?as?prescribed?though?we?may?want?to?discuss?adjusting? these?as?well?since?she?seems?to?have?difficulty?with?consistency?of?medications ?more?than?once?per?day. After?end?of?visit,?as?patient?is?leaving?she?notes?that?she?does?in?fact?have?a n?appointment?with?endocrinology?next?month. She?and?I?will?follow-up?on?endocrinology?recommendations?at?her?next?visit (2) Hypertension: Code(s): I10 - Essential (primary) hypertension Plan: Blood?pressure?is?controlled.??Goal?is?less?than?140/90 Continue?current?medication Orders: Orders AMB Hemoglobin A1c Today Z13.9 - Encounter for screening, unspecified Medications: Changed From dulaglutide 1.5 mg (0.5 mL) subcut QWEEK 90 days 6.5 mL 2RF E11.69 - Type 2 diabetes mellitus with other specified complication, E66.9 - Obesity, unspecified To dulaglutide 1.5 mg subcut QWEEK 84 days 12 mL 2RF E11.69 - Type 2 diabetes mellitus with other specified complication, E66.9 - Obesity, unspecified From insulin glargine (Lantus Solostar U-100 Insulin) 10 units (0.1 mL) subcut QPM 30 days 3 mL 3RF To insulin glargine (Lantus Solostar U-100 Insulin) 16 units (0.16 mL) subcut QPM 30 days 6 mL 3RF Refilled blood sugar diagnostic ([employer] Verio test strips) As directed 200 ea 4RF DX: E11.9, test blood sugar twice a day, 90 day E11.69 - Type 2 diabetes mellitus with other specified complication, E66.9 - Obesity, unspecified metformin 500 mg PO BID 30 days 60 tabs 3RF glipizide ER 10 mg PO BID 30 days 60 tabs 2RF Coding Level of Care Code Est Pt Level 4 (12342) Diagnoses Diabetes type 2, uncontrolled E11.65 Hypertension I10
[2023-08-12 11:39] VITALS: BP 120/68; BMI 30.9
== END 2023-08-12 12:23 | disposition home or self-care (01) ==
PROVIDERS: PCP Family Medicine; Visit Provider Family Medicine
DX: E11.65 Type 2 diabetes mellitus with hyperglycemia (principal); I10 Essential (primary) hypertension
CPT/HCPCS: 83036; 99214

== ENCOUNTER 2023-08-27 15:09 | Outpatient (AMB) | payer OTHER, SELFPAY ==
[2023-08-27 15:21] VITALS: BP 146/74; PULSE 89; BMI 31.3
--- NOTE | 2023-08-27 15:21 | A.OFFVIS_ITS ---
Intake Vital Signs 08/27/23 15:21 Height 5 ft 1.25 in Weight 167 lb 1.766 oz BMI 31.3 BP 146/74 H Blood Pressure Location Lt brachial Position Sitting Pulse 89 Pulse Source Pulse Oximeter Intake Visit Reasons: DM2-lvm Intake Note: Patient presents today to follow up on D2MT. Last Diabetic Eye exam: 11/2022 Last Podiatry Visit:Doesn't have one Random Glucose: 311 mg/dl HgA1c: 14.0% 08/12/23 Quality Control Analyst Required: No Accompanied by: Self / Same As Patient Allergies No Known Allergies Allergy (Verified 08/27/23 15:26) HPI HPI Comments History of Present Illness Details 53 YO F who is seen in consultation for T2DM at the request of PCP. Initially diagnosed with T2DM in gestional DM 20 yrs ago . Was initially started on treatment with metformin and glyburide . Current regimen metformin 500 mg BID Glipizide 10 mg QD Trulicity 1.5 mg Qwkly not taken for 6 mos Lantus 16 units . Unfortunately, patient did not bring her sensor or glucometer to visit Checks sugars 1 times per day. Reports low sugars no . Most recent A1C 14, on 08/12/2013 . Family history of T2DM in father,maternal grandmother g. Has eyes checked yearly, last eye exam 2021 , denies retinopathy. Denies neuropathy, , sees podiatry. has nephropathy, on RHYS/ARB. sees nephrology Has HLD, on statin. Denies CAD. Not Had diabetes education. PFSH Surgical History No pertinent past surgical history Family History Father Diabetes Hypertension Mother Hypertension Maternal Grandmother Cancer Social History Housing: House Alcohol intake: never Patient Tobacco Use Status: Never used Tobacco e-Cigarette/Vaping Use: Never Used Second Hand Smoke Exposure: No service: No Current occupational status: employed Current occupational exposures/hazards: No Cognitive needs: No Hearing needs: No Vision needs: No Physical Exam Vital Signs: Last Vital Signs Pulse 89 08/27/23 15:21 BP 146/74 H 08/27/23 15:21 BMI result Body Mass Index 31.3 Absence of Cushingoid features. Absence of acromegalic features. Neck exam reveals nl size thyroid about 15 gms. No thyroid nodules palpable. No carotid bruits present. Lungs CTA. Heart S1 S2, Reg R/R. No M/R/ G. Skin exam reveals absence of vitiligo or acanthosis nigricans. Abdominal exam reveals Soft NT/ND with NA BS. No organomegaly present. Neck Other: . Extrem Other: Visual exam of foot performed. No ulcerations or open lesions. No onchomycosis, no callouses.Pulses 2 + distally Sensation intact to monofilament exam. Vibratory sensation sensed is intact with 128 Hz tuning fork Results Reviewed Results Reviewed: Laboratory Last Values Glucose (Clinic) 311 mg/dL (60-115) H 08/27/23 15:30 Assessment & Plan Assessment & Plan (1) Diabetes type 2, uncontrolled: Code(s): E11.65 - Type 2 diabetes mellitus with hyperglycemia Plan: This is a 53-year-old white female with a history of type 2 diabetes being treated metformin, glipizide, Trulicity and basal insulin with poor glycemic control and known microvascular complications namely micro albuminuria. Plan is to have the patient check point cares before and after meals using glucometer or sensor and to bring the glucometer sensor to the follow-up appointments. Also scheduled appointment with diabetes educator and accounting machine servicer. Went over correlation of poor glycemic control to development and progression complications with patient. Lastly, I switched her Trulicity to Mounjaro and went over side effects of Mounjaro including but not limited to nausea, vomiting and rare risk of pancreatitis. We could start SGLT-2 inhibitor in the future but would hold off until better glycemic control to avoid yeast infection Orders: Referrals Diabetes Education Referral E11.65 - Type 2 diabetes mellitus with hyperglycemia Nutrition/Dietitian Referral E11.65 - Type 2 diabetes mellitus with hyperglycemia Medications: New tirzepatide (Mounjaro) 2.5 mg (0.5 mL) subcut QWEEK 2 mL 4RF 4 weeks Discontinued dulaglutide Discontinued Reason: Doctor's Order 1.5 mg subcut QWEEK 84 days 12 mL 2RF E11.69 - Type 2 diabetes mellitus with other specified complication, E66.9 - Obesity, unspecified Coding Level of Care Code New Pt Level 5 (69938) Diagnoses Diabetes type 2, uncontrolled E11.65
[2023-08-27 15:35] LABS: Glucose, Whole Blood 311 mg/dL (60-115)
== END 2023-08-27 16:27 | disposition home or self-care (01) ==
PROVIDERS: PCP Family Medicine; Visit Provider Internal Medicine Endocrinology, Diabetes & Metabolism
DX: E11.65 Type 2 diabetes mellitus with hyperglycemia (principal)
CPT/HCPCS: 99204

== ENCOUNTER → 2023-08-27 15:09 | Outpatient (BNVA) | payer OTHER, SELFPAY | PROVIDERS: PCP Family Medicine; Visit Provider Internal Medicine Endocrinology, Diabetes & Metabolism | DX: E11.65 Type 2 diabetes mellitus with hyperglycemia (principal); Z79.4 Long term (current) use of insulin | CPT/HCPCS: 82947 ==

== ENCOUNTER 2023-09-10 15:16 | Outpatient (AMB) | payer OTHER, SELFPAY ==
[2023-09-10 15:23] VITALS: BP 120/72; PULSE 88; O2SAT 96; BMI 31.9
--- NOTE | 2023-09-10 15:23 | MHC.PC.OV ---
Vital Signs 09/10/23 15:23 Height 5 ft 1.25 in Weight 170 lb 8 oz BMI 31.9 BP 120/72 Blood Pressure Location Lt brachial Position Sitting Pulse 88 Pulse Source Pulse Oximeter Pulse Oximetry (%) 96 Oxygen Delivery Method Room Air Intake Visit Reasons: f/u diabetes Intake Note: Patient is here to follow up on her diabetes today. Allergies No Known Allergies Allergy (Verified 09/10/23 15:26) Medication List - Last Reconciled 09/10/23 by Ludwin Mathew MD aspirin 81 mg PO DAILY atorvastatin 40 mg PO DAILY 30 days blood sugar diagnostic (OneTouch Verio test strips) As directed blood-glucose meter (OneTouch Verio Flex Meter) Test BS As directed, 999 days cetirizine (Zyrtec) 10 mg PO DAILY flash glucose sensor (FreeStyle Angie 2 Sensor kit) As directed glipizide ER 10 mg PO BID 30 days hydrocortisone 2.5% (Proctosol HC) [address] BID-QID PRN insulin glargine (Lantus Solostar U-100 Insulin) 16 units (0.16 mL) subcut QPM 30 days lancets Test BS 2 times a day As directed, 90 days lisinopril 5 mg PO DAILY 30 days metformin 500 mg PO BID 30 days pyfizclfabfe-Cc-ntfe-minerals tabs PO pantoprazole 40 mg PO DAILY pen needle, diabetic (BD Ultra-Fine Micro Pen Needle) To treat high blood sugar QPM. As directed, 90 days tirzepatide (Mounjaro) 2.5 mg (0.5 mL) subcut QWEEK 4 weeks Tobacco use date assessed: 09/10/23 Dental Screening Dental Screen Date: 09/10/23 HPI f/u diabetes HPI Details 53 y/o female presents to f/u diabetes. Had increased lantus last office visit and added back some Trulicity at a dose formulation that she should be able to obtain. She had seen Endocrinology Dr. De La Torre 08/27/23. Had switched her Trulicity to Mounjaro and had scheduled appt. with tobacco prevention health educator and screen printing supervisor. She?says?that?Mounjaro?has?also?been?put?on?back?order?so?she?has?not?started?this?yet. Blood?sugars?often?in?the?200s?and?sometimes?300s?still Blood pressure today 120/72. She is on lisinopril 5mg. PFSH Surgical History No pertinent past surgical history Family History Father Diabetes Hypertension Mother Hypertension Maternal Grandmother Cancer Social History Housing: House Alcohol intake: never Patient Tobacco Use Status: Never used Tobacco e-Cigarette/Vaping Use: Never Used Second Hand Smoke Exposure: No service: No Current occupational status: employed Current occupational exposures/hazards: No Cognitive needs: No Hearing needs: No Vision needs: No Questionnaire Thrive Questionnaire Date Thrive assessed: 08/12/23 HOLDEN-7 AMB Questionnaire HOLDEN-7 Date HOLDEN - 7 assessed: 08/12/23 Source: Developed by Drs. Jerrell Warren, Radha Brantley, Stanley Boone and colleagues, with an educational donny from [employer]. Review of Systems Const Denies chills, Denies fatigue, Denies fever(s), Denies headache(s) and Denies weakness ENT Denies dizziness and Denies headache(s) Card Denies chest pain, Denies lightheadedness, Denies dyspnea and Denies other (Palpitations) Resp Denies cough, Denies dyspnea, Denies wheezing and Denies other ( shortness of breath) Musc Denies numbness and Denies tingling Neuro Denies dizziness, Denies headache(s), Denies numbness, Denies tingling, Denies paresthesias and Denies weakness Psych Denies anxiety and Denies depression Endo Denies fatigue Aller/Immun Denies wheezing Physical exam (Primary Care) Vital Signs: Last Vital Signs Pulse 88 09/10/23 15:23 BP 120/72 09/10/23 15:23 Pulse Ox 96 09/10/23 15:23 Oxygen Delivery Method Room Air 09/10/23 15:23 BMI result Body Mass Index 31.9 Tobacco/Smoking Status: Tobacco use Status Tobacco use date assessed 09/10/23 09/10/23 15:30 Patient Tobacco Use Status Never used Tobacco 09/10/23 15:30 e-Cigarette/Vaping Use Never Used 09/10/23 15:30 Thrive Assessment: Date of Thrive Assessment Date Thrive assessed 08/12/23 09/10/23 15:30 Const General: no acute distress and well developed Nutritional Appearance: well nourished Orientation/consciousness: patient oriented x3 [facility] Head: Yes normocephalic and Yes atraumatic Eyes General: appearance normal, both eyes and all related structures Pupils: Equal, round and reactive pupils present EOM: EOMs intact bilaterally Resp Effort & Inspection: normal respiratory effort Auscultation: clear to auscultation bilaterally Cardio Rate: regular rate Rhythm: regular rhythm Heart sounds: S1 normal heart sound present, S2 normal heart sound present, no gallops, no murmurs and no rubs Neuro General: patient oriented x3 and gait normal Cranial nerves: Yes Equal, round and reactive pupils present Psych Affect: normal affect Assessment and Plan Assessment & Plan (1) Diabetes mellitus type 2 in obese: Code(s): E11.69 - Type 2 diabetes mellitus with other specified complication; E66.9 - Obesity, unspecified Plan: A1c?at?last?check?was?14.0 Endocrinology?has?switched?Trulicity?to?majora?but?patient?says?she?has?been?unable?to?obtain?this?due?to?back?order?as?well. Blood?sugars?in?200s?and?300s?still?when?she?checks?it Will?have?her?increase?Lantus?from?16?units?daily?to?20?units?daily. When?she?is?able?to?start?Anaro,?she?can?go?back?to?16?units?daily?and?patient?understands Continue?other?diabetes?medications?as?prescribed Encouraged?her?to?try?the?continue?his?monitor?which?she?has?not?started?yet Follow-up?with?diabetes?teaching Will?follow-up?with?her?in?November She?has?an?appointment?with?endocrinology?in?December (2) Hypertension: Code(s): I10 - Essential (primary) hypertension Plan: Blood?pressure?is?controlled.??Goal?is?less?than?140/90 Continue?current?medications Medications: Changed From insulin glargine (Lantus Solostar U-100 Insulin) 16 units (0.16 mL) subcut QPM 30 days 6 mL 3RF To insulin glargine (Lantus Solostar U-100 Insulin) 20 units (0.2 mL) subcut QPM 30 days 6 mL 3RF Coding Level of Care Code Est Pt Level 3 (48376) Diagnoses Diabetes mellitus type 2 in obese E11.69; E66.9 Hypertension I10
== END 2023-09-10 15:46 | disposition home or self-care (01) ==
PROVIDERS: PCP Family Medicine; Visit Provider Family Medicine
DX: E11.69 Type 2 diabetes mellitus with other specified complication (principal); E66.9 Obesity, unspecified; I10 Essential (primary) hypertension; Z68.31 Body mass index [BMI] 31.0-31.9, adult
CPT/HCPCS: 99213

== ENCOUNTER 2023-10-05 08:53 | Outpatient (AMB) | payer OTHER, SELFPAY ==
[2023-10-05 09:28] VITALS: BP 140/90; PULSE 101; TEMP 36.2; O2SAT 97; BMI 31.4
--- NOTE | 2023-10-05 09:28 | AM.OFFWIN_ITS ---
Intake Vital Signs 10/05/23 09:28 Height 5 ft 1 in Weight 166 lb BMI 31.4 BP 140/90 H Blood Pressure Location Lt brachial Position Sitting Pulse 101 H Pulse Source Pulse Oximeter Temp 97.2 F Temp Source Temporal Artery Scan Pulse Oximetry (%) 97 Oxygen Delivery Method Room Air Oxygen Flow Rate 97.2 Intake Visit Reasons: EP congestion cough sore throat sinus [id number] Intake Note: pt is here for cough, congestion, sore throat since thursday Patient Tobacco Use Status: Never used Tobacco Allergies No Known Allergies Allergy (Verified 10/05/23 09:29) Do you need a note to return to daycare/school/sports/work: Yes HPI HPI Comments History of Present Illness Details 53 y/o female who presents to [facility] with c/o Sore-throat and cough since . PFSH Surgical History No pertinent past surgical history Family History Father Diabetes Hypertension Mother Hypertension Maternal Grandmother Cancer Social History Housing: House Alcohol intake: never Patient Tobacco Use Status: Never used Tobacco e-Cigarette/Vaping Use: Never Used Second Hand Smoke Exposure: No service: No Current occupational status: employed Current occupational exposures/hazards: No Cognitive needs: No Hearing needs: No Vision needs: No Review of Systems Const All systems reviewed & are unremarkable except as noted in HPI and below Physical Exam Vital Signs: Last Vital Signs Temp 97.2 F 10/05/23 09:28 Pulse 101 H 10/05/23 09:28 BP 140/90 H 10/05/23 09:28 Pulse Ox 97 10/05/23 09:28 Oxygen Delivery Method Room Air 10/05/23 09:28 Oxygen Flow Rate 97.2 10/05/23 09:28 BMI result Body Mass Index 31.4 Const General: comfortable and no acute distress Orientation/consciousness: patient oriented x3 HEENT Head: Yes normocephalic Ears: external ears normal and TM abnormal with fluid behind the TM bilateral; not bulging, not with effusion, not erythematous, not perforated and not ret racted General nose exam: Normal nasal mucous membranes and turbinates present Face and sinus: Yes sinuses nontender Mouth: moist mucous membranes Throat: Yes posterior oropharynx normal Resp Effort & Inspection: normal respiratory effort and able to speak in complete sentences Auscultation: clear to auscultation bilaterally, no crackles, no rales, no rhonchi and no wheezes Cardio Rate: regular rate Rhythm: regular rhythm Neuro General: patient oriented x3 Results AMB Rapid Strep AMB Rapid Strep Negative Last Edit by Annamarie Mccullough MA on 10/05/23 10:11 Assessment & Plan Assessment & Plan (1) Cough in adult: Code(s): R05.9 - Cough, unspecified Plan: - OTC cough remedies - Rest and hydrate well - Acetaminophen for pain relief. (2) Upper respiratory infection: Code(s): J06.9 - Acute upper respiratory infection, unspecified Qualifiers: URI type: unspecified viral URI Qualified Code(s): J06.9 - Acute upper respiratory infection, unspecified Plan: - OTC cough remedies - Rest and hydrate well - Acetaminophen for pain relief. Orders: Orders SARS-CoV2/FLU/RSV Today J06.9 - Acute upper respiratory infection, unspecified, R05.9 - Cough, unspecified, R09.89 - Other specified symptoms and signs involving the circulatory and respiratory systems Medications: New doxycycline hyclate 100 mg PO BID 7 days 14 caps 0RF R05.9 - Cough, unspecified benzonatate 100 mg PO TID 30 caps 0RF R05.9 - Cough, unspecified Coding Level of Care Code Est Pt Level 3 (41742) Diagnoses Cough in adult R05.9 Viral upper respiratory tract infection J06.9 URI type: unspecified viral URI Time Spent (min) 15
== END 2023-10-05 10:22 | disposition home or self-care (01) ==
PROVIDERS: PCP Family Medicine; Visit Provider Nurse Practitioner Family
DX: R05.9 Cough, unspecified (principal); J06.9 Acute upper respiratory infection, unspecified
CPT/HCPCS: 99213

== ENCOUNTER 2023-10-05 10:13 | Outpatient (REF) | payer OTHER, SELFPAY ==
[2023-10-05 15:23] LABS: Influenza A PCR NEGATIVE (Negative); Influenza B PCR NEGATIVE (Negative); Resp Syncy Virus RNA Qual PCR NEGATIVE (Negative); SARS COV2 PCR INHOUSE NEGATIVE (Negative)
== END 2023-10-05 10:14 | disposition home or self-care (01) ==
LOC: HO.LAB 10:13
PROVIDERS: Visit Provider Nurse Practitioner Family
DX: Z11.52 Encounter for screening for COVID-19 (principal); R09.89 Other specified symptoms and signs involving the circulatory and respiratory systems; J06.9 Acute upper respiratory infection, unspecified; R05.9 Cough, unspecified
CPT/HCPCS: 0241U

== ENCOUNTER 2023-11-20 16:33 | Outpatient (REF) | payer OTHER, SELFPAY ==
[2023-11-20 19:18] LABS: Appearance Urine Clear; Color Urine Yellow; Glucose Urine UA >=1000 mg/dL (Negative); Leukocyte Esterase Urine Small (1+) (Negative); Nitrite Urine Negative (Negative); PH 5.5 (5.0-9.0); UMIC TRIGGER UACC YES; Urine Blood Negative (Negative); Urine Ketones Trace mg/dL (Negative); Urine Protein Negative (Neg-Trace)
[2023-11-20 20:33] LABS: Bacteria Urine None Seen (None Seen); Hyaline Casts Urine 0-2 /LPF (0-2); RBC Urine 0-2 /HPF (0-2); Squamous Epithelial Cell Urine 0-2 /HPF (0-2); UACC Culture Trigger YES
== END 2023-11-20 16:34 | disposition home or self-care (01) ==
LOC: HO.LAB 16:33
PROVIDERS: Visit Provider Family Medicine
DX: Z13.9 Encounter for screening, unspecified (principal); R82.90 Unspecified abnormal findings in urine
CPT/HCPCS: 81001; 81003; 87086

== ENCOUNTER 2023-11-20 16:40 | Outpatient (AMB) | payer OTHER, SELFPAY ==
[2023-11-20 16:44] VITALS: BP 122/60; PULSE 82; RESP 14; TEMP 36.6; O2SAT 98; BMI 31.0
--- NOTE | 2023-11-20 16:44 | MHC.OFFWIV ---
Intake Vital Signs 11/20/23 16:44 Height 5 ft 1 in Weight 164 lb 4 oz BMI 31.0 BP 122/60 Blood Pressure Location Rt brachial Position Sitting Respiration 14 Pulse 82 Pulse Source Pulse Oximeter Temp 97.8 F Temp Source Temporal Artery Scan Pulse Oximetry (%) 98 Oxygen Delivery Method Room Air Intake Visit Reasons: Possible UTI Patient Tobacco Use Status: Never used Tobacco Cathead Operator Required: No Accompanied by: Self / Same As Patient Allergies No Known Allergies Allergy (Verified 11/20/23 17:07) Medication List - Last Reconciled 11/20/23 by Ludmila Carvalho CNP aspirin 81 mg PO DAILY atorvastatin 40 mg PO DAILY 30 days benzonatate 100 mg PO TID blood sugar diagnostic (smsPREPTouch Verio test strips) As directed blood-glucose meter (smsPREPTouch Verio Flex Meter) Test BS As directed, 999 days blood-glucose sensor (FreeStyle Angie 3 Sensor device) As directed change every 14 days cetirizine (Zyrtec) 10 mg PO DAILY doxycycline hyclate 100 mg PO BID 7 days glipizide ER 10 mg PO BID 30 days hydrocortisone 2.5% (Proctosol HC) 1 appl DC BID-QID PRN insulin glargine (Lantus Solostar U-100 Insulin) 20 units (0.2 mL) subcut QPM 30 days lancets Test BS 2 times a day As directed, 90 days lisinopril 5 mg PO DAILY 30 days metformin 500 mg PO BID 30 days oechltahkutn-Sg-jfle-minerals tabs PO pantoprazole 40 mg PO DAILY pen needle, diabetic (BD Ultra-Fine Micro Pen Needle) To treat high blood sugar QPM. As directed, 90 days tirzepatide (Mounjaro) 2.5 mg (0.5 mL) subcut QWEEK 4 weeks Do you need a note to return to daycare/school/sports/work: No HPI HPI Comments History of Present Illness Details 53-year-old female presents with c/o right-sided low back pain for the past 2 days. She describes the pain as uncomfortable and tug sensation. She attributes her symptoms to possibly UTI. No fall, injury, or trauma. She denies dysuria, hematuria, or unusual urinary frequency. She is a diabetic and hydrates well. No constitutional symptoms. She has been taking tylenol with minimal relief. [facility] Surgical History No pertinent past surgical history Family History Father Diabetes Hypertension Mother Hypertension Maternal Grandmother Cancer Social History Housing: House Alcohol intake: never Patient Tobacco Use Status: Never used Tobacco e-Cigarette/Vaping Use: Never Used Second Hand Smoke Exposure: No service: No Current occupational status: employed Current occupational exposures/hazards: No Cognitive needs: No Hearing needs: No Vision needs: No Review of Systems Const Details: Const Denies chills, Denies fatigue, Denies fever(s), Denies headache(s) and Denies weakness ENT Denies change in vision, Denies dizziness, Denies headache(s), Denies hearing loss, Denies nasal congestion, Denies sinus pain, Denies sinus pressure and Denies sore throat Resp Denies cough, Denies dyspnea, Denies wheezing and Denies other (shortness of breath) Cardio Denies chest pain, Denies lightheadedness, Denies dyspnea and Denies other (palpitations) Neuro Denies dizziness, Denies headache(s), Denies numbness, Denies tingling and Denies weakness Musc Reports as per HPI Psych Denies anxiety, Denies depression, Denies memory?loss Endo Denies fatigue Aller/Immun Denies wheezing Physical Exam Vital Signs: Last Vital Signs Temp 97.8 F 11/20/23 16:44 Pulse 82 11/20/23 16:44 Resp 14 11/20/23 16:44 BP 122/60 11/20/23 16:44 Pulse Ox 98 11/20/23 16:44 Oxygen Delivery Method Room Air 11/20/23 16:44 BMI result Body Mass Index 31.0 Const Other: Const General: well developed; No acute distress Nutritional Appearance: well nourished Orientation/consciousness: patient oriented x3 HEENT Head: Yes normocephalic and Yes atraumatic Eyes General: appearance normal, both eyes and all related structures Pupils: Equal, round and reactive pupils present EOM: EOMs intact bilaterally Resp Effort & Inspection: normal respiratory effort Auscultation: clear to auscultation bilaterally Cardio Rate: regular rate Rhythm: regular rhythm Heart sounds: S1 normal heart sound present, S2 normal heart sound present, no gallops, no murmurs and no rubs Bruits: no abdominal aortic bruits and no carotid bruits Musc Tenderness to palpation of the right side of her lower back; no overt injury or trauma noted; no spinal or CVA tenderness Neuro General: patient oriented x3 and gait normal, no focal neuro deficit Cranial nerves: Yes Equal, round and reactive pupils present Psych Affect: normal affect Results AMB Urinalysis Dipstick UR Leukocytes Small Last Edit by Brenda Landeros [facility] on 11/20/23 16:54 UR Nitrite Negative Last Edit by Brenda Landeros [facility] on 11/20/23 16:54 UR Urobilinogen Normal Last Edit by Brenda Landeros [facility] on 11/20/23 16:54 UR Protein Negative Last Edit by Brenda Landeros [facility] on 11/20/23 16:54 UR Ph 6.0 Last Edit by Brenda Landeros [facility] on 11/20/23 16:54 UR Blood Negative Last Edit by Brenda Landeros [facility] on 11/20/23 16:54 UR Specific [place] 1.025 Last Edit by Brenda Landeros [facility] on 11/20/23 16:54 UR Ketone Trace Last Edit by Brenda Landeros [facility] on 11/20/23 16:54 UR Bilirubin Negative Last Edit by Brenda Landeros [facility] on 11/20/23 16:54 UR Glucose 1000 Last Edit by Brenda Landeros [facility] on 11/20/23 16:54 Results Reviewed Results Reviewed: Laboratory Last Values Urine pH (Clinic) 6.0 11/20/23 16:33 Specific [place] (Clinic) 1.025 11/20/23 16:33 Ur Protein (Clinic) Negative 11/20/23 16:33 Ur Ketones (Clinic) Trace 11/20/23 16:33 Urine Blood (Clinic) Negative 11/20/23 16:33 Urine Nitrite Negative 11/20/23 16:33 Urine Bilirubin (Clinic) Negative 11/20/23 16:33 Urobilinogen (Clinic) Normal 11/20/23 16:33 Leukocyte Esterase (Clinic) Small 11/20/23 16:33 Urine Glucose (Clinic) 1000 11/20/23 16:33 Assessment & Plan Assessment & Plan (1) Acute low back pain: Code(s): M54.50 - Low back pain, unspecified Plan: Right-sided low back pain x2 days Tenderness to palpation of the right side of her lower back; no overt injury or trauma noted; no spinal or CVA tenderness Urine dip reveals small amount of leukocytes, trace ketones, and significant amount of glucose; UTI not likely Continue to take Tylenol as needed Warm/cool compresses encouraged Will send urine to the lab for urinalysis and culture. Will make changes as needed Follow-up with worsening or new symptoms Verbalized understanding and agreed with treatment plan Coding Level of Care Code Est Pt Level 3 (17012) Diagnoses Acute low back pain M54.50
== END 2023-11-20 17:15 | disposition home or self-care (01) ==
PROVIDERS: PCP Family Medicine; Visit Provider Nurse Practitioner Family
DX: M54.50 Low back pain, unspecified (principal)
CPT/HCPCS: 81002; 99213

== ENCOUNTER 2023-12-03 14:14 | Outpatient (AMB) | payer OTHER, SELFPAY ==
--- NOTE | 2023-12-03 14:22 | A.OFFPC_ITS ---
Vital Signs 12/03/23 14:26 Height 5 ft 1 in Weight 165 lb 4 oz BMI 31.2 BP 138/66 Blood Pressure Location Lt brachial Position Sitting Pulse 83 Pulse Source Pulse Oximeter Pulse Oximetry (%) 98 Oxygen Delivery Method Room Air Intake Visit Reasons: f/u diabetes Intake Note: Follow up diabetes. Needs order for mammogram, due in January. Allergies No Known Allergies Allergy (Verified 12/03/23 14:23) Tobacco use date assessed: 09/10/23 Dental Screening Dental Screen Date: 09/10/23 HPI f/u diabetes HPI Details 53 y/o female presents to f/u diabetes. A1c today 12/03/23 is 10.0%, which did improve from 14% last time. She is on insulin glargine 16 units, metformin 500mg b.i.d, Mounjaro 2.5mg, glipizide 10mg b.i.d. She states she is tolerating her mounjaro. She notes she sees her educational therapy teacher next month. She states she notices sometimes in the middle of the night her blood sugars go down to 50-60s. Pt reports dry patches on her legs. HPI Comments History of Present Illness Details Documentation assistance for Ludwin Mathew MD, was provided by Cj Rosas, [employer] on 12/03/2023 at 3:22 PM EST. I, Dr. Mathew, have read, observed, and verified documentation. [facility] Surgical History No pertinent past surgical history Family History Father Diabetes Hypertension Mother Hypertension Maternal Grandmother Cancer Social History Housing: House Alcohol intake: never Patient Tobacco Use Status: Never used Tobacco e-Cigarette/Vaping Use: Never Used Second Hand Smoke Exposure: No service: No Current occupational status: employed Current occupational exposures/hazards: No Cognitive needs: No Hearing needs: No Vision needs: No Questionnaire Thrive Questionnaire Date Thrive assessed: 08/12/23 HOLDEN-7 AMB Questionnaire HOLDEN-7 Date HOLDEN - 7 assessed: 08/12/23 Source: Developed by Drs. Jerrell Warren, Radha Brantley, Stanley Boone and colleagues, with an educational donny from [employer]. Review of Systems Const Denies chills, Denies fatigue, Denies fever(s), Denies headache(s) and Denies weakness ENT Denies dizziness and Denies headache(s) Card Denies dyspnea Resp Denies cough, Denies dyspnea, Denies wheezing and Denies other (shortness of breath) Musc Denies numbness and Denies tingling Neuro Denies dizziness, Denies headache(s), Denies numbness, Denies tingling and Denies weakness Psych Denies anxiety and Denies depression Endo Denies fatigue Aller/Immun Denies wheezing Physical exam (Primary Care) Vital Signs: Last Vital Signs Pulse 83 12/03/23 14:26 BP 138/66 12/03/23 14:26 Pulse Ox 98 12/03/23 14:26 Oxygen Delivery Method Room Air 12/03/23 14:26 BMI result Body Mass Index 31.2 Tobacco/Smoking Status: Tobacco use Status Tobacco use date assessed 09/10/23 12/03/23 14:28 Patient Tobacco Use Status Never used Tobacco 12/03/23 14:28 e-Cigarette/Vaping Use Never Used 12/03/23 14:28 Thrive Assessment: Date of Thrive Assessment Date Thrive assessed 08/12/23 12/03/23 14:28 Const General: well developed; No acute distress Nutritional Appearance: well nourished Orientation/consciousness: patient oriented x3 HENMT Head: Yes normocephalic and Yes atraumatic Eyes General: appearance normal, both eyes and all related structures Pupils: Equal, round and reactive pupils present EOM: EOMs intact bilaterally Resp Effort & Inspection: normal respiratory effort Auscultation: clear to auscultation bilaterally Cardio Rate: regular rate Rhythm: regular rhythm Heart sounds: S1 normal heart sound present, S2 normal heart sound present, no gallops, no murmurs and no rubs Neuro General: patient oriented x3 and gait normal Cranial nerves: Yes Equal, round and reactive pupils present Psych Affect: normal affect Results AMB Hemoglobin A1c AMB Hemoglobin A1c 10 % Last Edit by Edna Underwood CMA on 12/03/23 14:56 Results Reviewed Results Reviewed: Laboratory Last Values Hgb A1c (Clinic) 10 % (4.0-6.0) H 12/03/23 14:54 Assessment and Plan Assessment & Plan (1) Diabetes type 2, uncontrolled: Code(s): E11.65 - Type 2 diabetes mellitus with hyperglycemia Plan: A1c?improved?from?14-10.0%?with?addition?of?Mounjaro Will?increase?further?increase?Mounjaro?from?2.5?mg?to?5.0?mg?weekly Continue?your?other?medications?as?prescribed Has?appointment?and?will?see?endocrinology?in?December She?has?had?a?few?low?blood?sugars?and?I?advised?her?to?try?a?snack?in?the?eveni ng/at?night (2) Breast cancer screening by mammogram: Code(s): Z12. - Encounter for screening mammogram for malignant neoplasm of breast Plan: Mammogram?ordered (3) Skin irritation: Code(s): R23.8 - Other skin changes Plan: Mild?dermatitis?of?left?leg?possibly?secondary?to?abrasion?from?shaving Will?give?her?a?steroid?cream If?not?improving?will?refer?to?Dermatology Orders: Orders AMB Hemoglobin A1c Today E11.65 - Type 2 diabetes mellitus with hyperglycemia MM tomosynthesis screening BI Today Z12. - Encounter for screening mammogram for malignant neoplasm of breast Medications: New betamethasone valerate 0.1% 1 appl topical BID 14 days PRN 15 grams 0RF skin irritation Changed From tirzepatide (Mounjaro) 2.5 mg (0.5 mL) subcut QWEEK 4 weeks 2 mL 4RF To tirzepatide 5 mg (0.5 mL) subcut QWEEK 4 weeks 2 mL 4RF Coding Level of Care Code Est Pt Level 3 (34694) Diagnoses Diabetes type 2, uncontrolled E11.65 Breast cancer screening by mammogram Z. Skin irritation R23.8
[2023-12-03 14:26] VITALS: BP 138/66; PULSE 83; O2SAT 98; BMI 31.2
== END 2023-12-03 15:27 | disposition home or self-care (01) ==
PROVIDERS: PCP Family Medicine; Visit Provider Family Medicine
DX: E11.65 Type 2 diabetes mellitus with hyperglycemia (principal); Z12.31 Encounter for screening mammogram for malignant neoplasm of breast; R23.8 Other skin changes
CPT/HCPCS: 83036; 99213

== ENCOUNTER 2024-01-04 14:17 | Outpatient (AMB) | payer OTHER, SELFPAY ==
[2024-01-04 14:20] VITALS: BP 140/72; PULSE 92; BMI 30.7
--- NOTE | 2024-01-04 14:20 | MHC.OFFVIS ---
Vital Signs 01/04/24 14:20 Height 5 ft 1 in Weight 162 lb 4.163 oz BMI 30.7 BP 140/72 H Blood Pressure Location Lt brachial Position Sitting Pulse 92 Pulse Source Pulse Oximeter Intake Visit Reasons: T2DM/CONFIRMED Intake Note: New patient presents today for D2MT. Last Diabetic Eye exam: Over 2 years ago Last Podiatry Visit: Doesn't have one. Random Glucose: 333 mg/dl HgA1c: 10.0% 12/03/23. Gis Mapping Technician Required: No Accompanied by: Self / Same As Patient Allergies No Known Allergies Allergy (Verified 01/04/24 14:25) Medication List - Last Reconciled 01/04/24 by Sammi Turner PA-C aspirin 81 mg PO DAILY atorvastatin 40 mg PO DAILY 30 days betamethasone valerate 0.1% 1 appl topical BID PRN 14 days blood sugar diagnostic (OneTouch Verio test strips) As directed blood-glucose meter (OneTouch Verio Flex Meter) Test BS As directed, 999 days blood-glucose sensor ([employer] TechnologiesStyle Angie 3 Sensor device) As directed change every 14 days cetirizine (Zyrtec) 10 mg PO DAILY glipizide ER 10 mg PO BID 30 days hydrocortisone 2.5% (Proctosol HC) 1 appl [place] BID-QID PRN insulin glargine (Lantus Solostar U-100 Insulin) 16 units (0.16 mL) subcut QPM 30 days lancets Test BS 2 times a day As directed, 90 days lisinopril 5 mg PO DAILY 30 days metformin 500 mg PO BID 30 days gkatougpedbr-Gq-eimk-minerals tabs PO pantoprazole 40 mg PO DAILY pen needle, diabetic (BD Ultra-Fine Micro Pen Needle) To treat high blood sugar QPM. As directed, 90 days tirzepatide 5 mg (0.5 mL) subcut QWEEK 4 weeks HPI HPI T2DM/CONFIRMED: Details: Patient is a 53-year-old female with a significant past medical history of hyperlipidemia, hypertension, type 2 diabetes presenting today for follow-up regarding her diabetes. Endo:A1c 12/03/23 is 10.0%, which did improve from 14% last time. She is on insulin glargine 16 units, metformin 500mg b.i.d, Mounjaro 2.5mg, glipizide 10mg b.i.d. -She states she is tolerating her mounjaro and at the last visit with her pcp was supposed to increase this but did not do that. med adjustment made her nervous cgm- Unable to download today but she does have her phone here with her. very high 67%, high 13%, in range 20%. No hypoglycemic events. she is on acei and atorvastatin. last lipids wnl. fam hx of t2dm PFSH Surgical History No pertinent past surgical history Family History (Reviewed 01/04/24 @ 14: by RASTA Adair) Father Diabetes Hypertension Mother Hypertension Maternal Grandmother Cancer Social History (Reviewed 01/04/24 @ 14: by RASTA Adair) Housing: House Alcohol intake: never Patient Tobacco Use Status: Never used Tobacco e-Cigarette/Vaping Use: Never Used Second Hand Smoke Exposure: No service: No Current occupational status: employed Current occupational exposures/hazards: No Cognitive needs: No Hearing needs: No Vision needs: No Physical Exam Vital Signs: Last Vital Signs Pulse 92 01/04/24 14:20 BP 140/72 H 01/04/24 14:20 BMI result Body Mass Index 30.7 Const Orientation/consciousness: patient oriented x3 Neck Neck: Yes no lymphadenopathy Thyroid: Thyroid normal Carotids: no bruits Resp Auscultation: clear to auscultation bilaterally Cardio Rate: regular rate Rhythm: regular rhythm Heart sounds: S1 normal heart sound present and S2 normal heart sound present Peripheral pulses: dorsalis pedis present Neuro General: patient oriented x3, gait normal and no focal motor deficits Extrem Other: Monofilament sensation intact bilaterally. Vibratory sensation intact bilaterally. Skin intact. General: Yes normal to inspection Results Reviewed Results Reviewed: Laboratory Last Values Glucose (Clinic) 333 mg/dL (60-115) H 01/04/24 14:30 Laboratory Tests 10/03/22 06/17/23 08/12/23 14:58 09:39 12:03 Sodium 139 Potassium 3.9 Chloride 100 Carbon Dioxide 27 Anion Gap 16 BUN 11 Creatinine 0.77 Estimated GFR > 60 Hgb A1c (Clinic) 12.5 H 14.0 H AST 14 ALT 19 Triglycerides 242 H Cholesterol 175 LDL Cholesterol, Calc 78 HDL Cholesterol 49 TSH 2.56 12/03/23 14:54 Sodium Potassium Chloride Carbon Dioxide Anion Gap BUN Creatinine Estimated GFR Hgb A1c (Clinic) 10 H AST ALT Triglycerides Cholesterol LDL Cholesterol, Calc HDL Cholesterol TSH Assessment & Plan Assessment & Plan (1) Diabetic nephropathy: Code(s): E11.21 - Type 2 diabetes mellitus with diabetic nephropathy Category: Medical Qualifiers: Diabetes mellitus type: type 2 Qualified Code(s): E11.21 - Type 2 diabetes mellitus with diabetic nephropathy Plan: mounjaro increased today. increased lantus to 20 u. rule of 15s discussed. we spent more than 1 hour in dama-cf-ryss time discussing the pathophysiology of diabetes, diet for diabetes, the complications associated with uncontrolled diabetes and different medications. We reviewed signs and symptoms of hyper and hypoglycemia. At her 1st visit she states that she was very overwhelmed and for got a lot of what was said. She was a hold off on seeing a kiln fireman as she does not have much time off from work. (2) Microalbuminuria: Code(s): R80.9 - Proteinuria, unspecified Category: Medical Plan: Follows with Nephrology. On Mounjaro. on lisinopril 5 mg. (3) Diabetes type 2, uncontrolled: Code(s): E11.65 - Type 2 diabetes mellitus with hyperglycemia Category: Medical Qualifiers: Glycemic state: with hyperglycemia Qualified Code(s): E11.65 - Type 2 diabetes mellitus with hyperglycemia Plan: as above. Labs prior to next appointment. (4) Hypertension: Code(s): I10 - Essential (primary) hypertension Category: Medical Qualifiers: Hypertension type: primary hypertension Qualified Code(s): I10 - Essential (primary) hypertension Plan: Discussed that her blood pressure is a bit elevated above goal. She has an upcoming appointment with her PCP in a month. I will see her back in 3 months and if still elevated will adjust mlood pressure.edication. She is working on diet and weight loss and hoping that this enough will lower her bp. Orders: Orders Microalbumin, Random (w Creat) Today E11.21 - Type 2 diabetes mellitus with diabetic nephropathy, R80.9 - Proteinuria, unspecified Hemoglobin A1c Today E11.21 - Type 2 diabetes mellitus with diabetic nephropathy, R80.9 - Proteinuria, unspecified Medications: New glucose (Dex4 Glucose) until symptoms of low blood sugar are controlled 16 grams (4 x 4 gram) PO Q15M PRN 100 tabs 0RF hypoglycemia Changed From insulin glargine (Lantus Solostar U-100 Insulin) 16 units (0.16 mL) subcut QPM 30 days 6 mL 3RF To insulin glargine (Lantus Solostar U-100 Insulin) 18 units (0.18 mL) subcut QPM 30 days 5.4 mL 3RF Refilled tirzepatide 5 mg (0.5 mL) subcut QWEEK 4 weeks 2 mL 4RF Coding Level of Care Code Est Pt Level 5 (63234) Complex EM visit Add On G2211 Diagnoses Diabetic nephropathy associated with type 2 diabetes mellitus E11.21 Diabetes mellitus type: type 2 Microalbuminuria R80.9 Uncontrolled type 2 diabetes mellitus with hyperglycemia E11.65 Glycemic state: with hyperglycemia Primary hypertension I10 Hypertension type: primary hypertension
[2024-01-04 14:33] LABS: Glucose, Whole Blood 333 mg/dL (60-115)
== END 2024-01-04 15:33 | disposition home or self-care (01) ==
PROVIDERS: PCP Family Medicine; Visit Provider Physician Assistant
DX: E11.21 Type 2 diabetes mellitus with diabetic nephropathy (principal); R80.9 Proteinuria, unspecified; E11.65 Type 2 diabetes mellitus with hyperglycemia; I10 Essential (primary) hypertension
CPT/HCPCS: 99215; G2211

== ENCOUNTER → 2024-01-04 14:17 | Outpatient (BNVA) | payer OTHER, SELFPAY | PROVIDERS: PCP Family Medicine; Visit Provider Physician Assistant | DX: E11.21 Type 2 diabetes mellitus with diabetic nephropathy (principal); E11.65 Type 2 diabetes mellitus with hyperglycemia; R80.9 Proteinuria, unspecified; I10 Essential (primary) hypertension; Z79.4 Long term (current) use of insulin | CPT/HCPCS: 82947 ==

== ENCOUNTER 2024-03-12 10:01 | Outpatient (REF) | payer OTHER, SELFPAY ==
[2024-03-12 11:01] LABS: Estimated Average Glucose 252 mg/dL; Hemoglobin A1c % 10.4 % (<6.0)
[2024-03-12 12:10] LABS: Creatinine Urine 117.93 mg/dL; Microalbum/Creatinine Ratio Ur 27.9 ug/mg cr (<30)
== END 2024-03-12 10:02 | disposition home or self-care (01) ==
LOC: HO.LAB 10:01
PROVIDERS: Physician Assistant; Absent Provider Nurse Practitioner Adult Health; PCP Family Medicine; Visit Provider Family Medicine
DX: E11.21 Type 2 diabetes mellitus with diabetic nephropathy (principal); R80.9 Proteinuria, unspecified
CPT/HCPCS: 36415; 82043; 82570; 83036

== ENCOUNTER 2024-03-14 14:04 | Outpatient (AMB) | payer OTHER, SELFPAY ==
[2024-03-14 14:15] VITALS: BP 122/66; PULSE 93; RESP 12; O2SAT 96; BMI 31.7
--- NOTE | 2024-03-14 14:15 | MHC.PC.OV ---
Vital Signs 03/14/24 14:15 Height 5 ft 1 in Weight 168 lb BMI 31.7 BP 122/66 Blood Pressure Location Rt brachial Position Sitting Respiration 12 Pulse 93 Pulse Source Pulse Oximeter Pulse Oximetry (%) 96 Oxygen Delivery Method Room Air Intake Visit Reasons: CPE with f/u labs and health maint. 30 mins Intake Note: Patient is here for her physical. Patient is taking mounjaro and experiencing nausea and constipation. Patient reports she drinks plenty of fluids so the constipation is abnormal. Patient needs labs placed. Patient reports she has pains in her hand from data power consultant. Patient reports pains are in the palm and top of her hands/wrist. Senior Front End Developer Required: No Accompanied by: Self / Same As Patient Allergies No Known Allergies Allergy (Verified 03/14/24 14:22) Tobacco use date assessed: 03/14/24 Dental Screening Dental Screen Date: 09/10/23 HPI HPI Comments History of Present Illness Details 53 y/o female with a past medical history of type 2 diabetes, hyperlipidemia, hypertension, GERD presenting for physical exam CV: On lisinopril 5mg daily, lipitor 40mg daily, aspirin. Type 2 diabetes: On metformin, lantus, glipizide, mounjaro. Last A1C 10.4%. Seeing [facility] health and safety trainer Mammo is due in Jun Colonoscopy at age 50-repeat recommended for 5 years due to polyp ROS CONSTITUTIONAL: Denies weight loss, fever and chills. HEENT: Denies changes in vision and hearing. RESPIRATORY: Denies SOB and cough. CV: Denies palpitations and CP GI: Denies abdominal pain, nausea, vomiting and diarrhea. : Denies dysuria and urinary frequency. MSK: pain in the right hand SKIN: Denies rash and pruritus. NEUROLOGICAL: Denies headache PSYCHIATRIC: Denies recent changes in mood. PHYSICAL EXAM: GENERAL: Alert and oriented x 3. NAD EYES: EOMI. Anicteric. HENT: Moist mucous membranes. No scleral icterus. No cervical lymphadenopathy. LUNGS: Clear to auscultation bilaterally. CARDIOVASCULAR: Regular rate and rhythm. No murmur. No JVD. ABDOMEN: Soft, non-tender +bs EXTREMITIES: No edema. Non-tender. SKIN: No rashes or lesions. Warm. NEUROLOGIC: No focal neurological deficits. CN II-XII grossly intact PSYCHIATRIC: Cooperative. Appropriate mood and affect [facility] Medical History (Updated 03/14/24 @ 14:59 by Zulma Andrade MD) Diabetes mellitus type 2 in obese Hyperlipidemia Diabetes type 2, uncontrolled GERD (gastroesophageal reflux disease) Diabetic nephropathy Tension headache Acute low back pain Cervicalgia Surgical History (Updated 03/14/24 @ 14:26 by Lis Fuentes CMA) History of ankle surgery Hx of section H/O dilation and curettage History of kidney surgery Family History (Updated 03/14/24 @ 14:28 by Lis Fuentes CMA) Father Diabetes Hypertension Mother Hypertension Maternal Grandmother Cancer Social History Housing: House Alcohol intake: never Patient Tobacco Use Status: Never used Tobacco e-Cigarette/Vaping Use: Never Used Second Hand Smoke Exposure: No service: No Current occupational status: employed Current occupational exposures/hazards: No Cognitive needs: No Hearing needs: No Vision needs: No Questionnaire PHQ-9 Over the last 2 weeks, how often have you been bothered by any of the following problems? 1. Little interest or pleasure in doing things: not at all 2. Feeling down, depressed, or hopeless: not at all 3. Trouble falling or staying asleep, or sleeping too much: not at all 4. Feeling tired or having little energy: more than half the days 5. Poor appetite or overeating: not at all 6. Feeling bad about yourself - or that you are a failure or have let yourself or your family down: not at all 7. Trouble concentrating on things, such as reading the newspaper or watching television: not at all 8. Moving or speaking so slowly that other people could have noticed. Or the opposite - being so fidgety or restless that you have been moving around a lot more than usual: not at all 9. Thoughts that you would be better off or of hurting yourself in some way: not at all Total score: 2 Depression Screening Interpretation: Negative (neg) Depression Screening Done: Yes 13810 - PHQ-9 Billing: Yes Source: Developed by Drs. Jerrell Warren, Radha Brantley, Stanley Boone and colleagues, with an educational donny from [employer]. Thrive Questionnaire Date Thrive assessed: 03/14/24 I am a: Patient What is your living situation today?: I have a steady place to live Within the past 12 months, did the food you bought not last and you didn't have the money to get more?: Never true Do you have trouble paying for medicines?: No Do you have trouble getting transportation to medical appointments?: No Do you have trouble paying your heating and electricity bill?: No Do you have trouble taking care of your child, family member or friend?: No Do you have trouble with day-to-day activities such as bathing, preparing meals, shopping, managing finances, etc.?: No Are you currently unemployed and looking for a job?: No Are you interested in more education?: No Please select the resources that you would like help with: None Currently or been in a relationship where the following occur: No concerns reported THRIVE Score: 0 AUDIT C Alcohol Use Questionnaire (AUDIT-C) 1. How often do you have a drink containing alcohol?: Never 3. How often do you have six or more drinks on one occasion?: Never Total Score: 0 HOLDEN-7 AMB Questionnaire HOLDEN-7 Date HOLDEN - 7 assessed: 03/14/24 Feeling nervous, anxious, or on edge: 0 = Not at all Not being able to stop or control worryin = Not at all Worrying too much about different things: 0 = Not at all Trouble relaxin = Not at all Being so restless that it is hard to sit still: 0 = Not at all Becoming easily annoyed or irritable: 0 = Not at all Feeling afraid as if something awful might happen: 0 = Not at all Total HOLDEN-7 score (0-4 normal; 5-9 mild; 10-14 moderate; 15-21 severe): 0 Source: Developed by Drs. Jerrell Warren, Radha Brantley, Stanley Boone and colleagues, with an educational donny from [employer]. HOLDEN-7 Assessment Billing HOLDEN-7 Assessment Tool: HOLDEN-7 Assessment 23315 Physical exam (Primary Care) Vital Signs: Last Vital Signs Pulse 93 03/14/24 14:15 Resp 12 03/14/24 14:15 BP 122/66 03/14/24 14:15 Pulse Ox 96 03/14/24 14:15 Oxygen Delivery Method Room Air 03/14/24 14:15 BMI result Body Mass Index 31.7 Tobacco/Smoking Status: Tobacco use Status Tobacco use date assessed 03/14/24 03/14/24 14:30 Patient Tobacco Use Status Never used Tobacco 03/14/24 14:19 e-Cigarette/Vaping Use Never Used 03/14/24 14:19 PHQ-9: PHQ-9 Score PHQ-9: Total score 2 03/20/24 16:55 Depression Screening Interpretation: Negative (neg) Thrive Assessment: Date of Thrive Assessment Date Thrive assessed 03/14/24 03/14/24 14:30 Currently or been in a relationship where the following occur: No concerns reported Assessment and Plan Assessment & Plan (1) Physical exam: Code(s): Z00.00 - Encounter for general adult medical examination without abnormal findings Plan: Preventive measures for age reviewed. UTD colonoscopy mammogram (2) Diabetic nephropathy: Code(s): E11.21 - Type 2 diabetes mellitus with diabetic nephropathy Qualifiers: Diabetes mellitus type: type 2 Qualified Code(s): E11.21 - Type 2 diabetes mellitus with diabetic nephropathy (3) Right hand pain: Code(s): M79.641 - Pain in right hand Plan: Referral to physiatry. Orders: Orders Complete Blood Count Auto Diff 03/14/24 E11.65 - Type 2 diabetes mellitus with hyperglycemia, E78.5 - Hyperlipidemia, unspecified, I10 - Essential (primary) hypertension, Z00.00 - Encounter for general adult medical examination without abnormal findings TSH reflex Free T4 03/14/24 E11.65 - Type 2 diabetes mellitus with hyperglycemia, E78.5 - Hyperlipidemia, unspecified, I10 - Essential (primary) hypertension, Z00.00 - Encounter for general adult medical examination without abnormal findings Comprehensive Met. Panel 03/14/24 E11.65 - Type 2 diabetes mellitus with hyperglycemia, E78.5 - Hyperlipidemia, unspecified, I10 - Essential (primary) hypertension, Z00.00 - Encounter for general adult medical examination without abnormal findings Lipid Panel 03/14/24 E11.65 - Type 2 diabetes mellitus with hyperglycemia, E78.5 - Hyperlipidemia, unspecified, I10 - Essential (primary) hypertension, Z00.00 - Encounter for general adult medical examination without abnormal findings Referrals Physiatry Referral M79.641 - Pain in right hand Medications: New Mounjaro (tirzepatide) for 4 weeks 2.5 mg (0.5 mL) subcut QWEEK 2 mL 3RF NS diclofenac sodium 1% (Voltaren Arthritis Pain) apply to single elbow, wrist or hand; for hand includes palm/fingers/back of hand 2 grams topical QID 100 grams 0RF Coding Level of Care Code Est Pt Prev Care 40-64y(92088) Diagnoses Physical exam Z00.00 Diabetic nephropathy associated with type 2 diabetes mellitus E11.21 Diabetes mellitus type: type 2 Right hand pain M79.641 Additional Codes HOLDEN-7 Assessment Billing - HOLDEN-7 Assessment Tool: HOLDEN-7 Assessment 60899 ([id number])
== END 2024-03-14 15:04 | disposition home or self-care (01) ==
LOC: HO.HMCFM 14:04
PROVIDERS: PCP Family Medicine; Visit Provider Internal Medicine
DX: Z00.00 Encounter for general adult medical examination without abnormal findings (principal); E11.21 Type 2 diabetes mellitus with diabetic nephropathy; M79.641 Pain in right hand

== ENCOUNTER → 2024-03-14 14:04 | Outpatient (BNVA) | payer OTHER, SELFPAY | PROVIDERS: PCP Family Medicine; Visit Provider Internal Medicine | DX: Z00.01 Encounter for general adult medical examination with abnormal findings (principal); M79.641 Pain in right hand; E11.21 Type 2 diabetes mellitus with diabetic nephropathy | CPT/HCPCS: 96127 ==

== ENCOUNTER 2024-03-14 15:08 | Outpatient (REF) | payer OTHER, SELFPAY ==
[2024-03-14 18:12] LABS: MANUAL DIFF FLAG NO
[2024-03-14 18:29] LABS: Basophils Absolute Auto 0.1 X10*3/uL (0.0-0.2); Basophils Percent Auto 0.7 % (0-2); Eosinophils Absolute Auto 0.3 X10*3/uL (0.0-0.4); Eosinophils Percent Auto 3.8 % (0-4); Hematocrit 41.5 % (37.0-47.0); Hemoglobin 14.1 g/dl (12.0-16.0); Imm Gran Abs Auto 0.02 X10*3/uL (0.00-0.03); Imm Gran Pct Auto 0.2 % (0.0-0.4); Lymphocytes Percent Auto 36.5 % (20-40); Mean Corpuscular Hemoglobin 29.7 pg (27.0-33.0); Mean Corpuscular Volume 87.6 fL (80.0-98.0); Mean Platelet Volume 10.8 fL (9.4-12.3); Monocytes Absolute Auto 0.5 X10*3/uL (0.1-1.2); Monocytes Percent Auto 6.5 % (2-11); Neutrophils Absolute Auto 4.3 x10*3/uL (2.0-8.3); Neutrophils Percent Auto 52.3 % (45-73); Platelet Count 281 X10*3/uL (160-400); Red Blood Count 4.74 X10*6/uL (4.20-5.50); Red Cell Distribution Width 12.7 % (11.0-16.0); White Blood Count 8.2 X10*3/uL (4.8-10.8)
[2024-03-14 18:40] LABS: Alanine Aminotransferase 22 U/L (0-31); Albumin Level 4.6 g/dL (3.5-5.0); Alkaline Phosphatase 68 U/L (39-117); Anion Gap 14 (12-20); Aspartate Amino Transferase 13 U/L (5-31); Bilirubin Total 0.7 mg/dL (0.0-1.0); Blood Urea Nitrogen 13 mg/dL (9-16); Calcium 10.5 mg/dL (8.4-10.2); Carbon Dioxide 26 mmol/L (22-29); Chloride 105 mmol/L (96-108); Cholesterol 169 mg/dL (<200); Estimated Glomerular Filt Rate > 60; Glucose Random 191 mg/dL (60-115); HDL Cholesterol 50 mg/dL (>40); LDL Cholesterol Calculated 85 mg/dL (<100); Potassium 4.2 mmol/L (3.3-5.1); Sodium 141 mmol/L (135-145); Total Protein 7.7 g/dL (6.5-8.0); Triglycerides 172 mg/dL (<150)
[2024-03-14 18:56] LABS: TSH reflex Free T4 0.83 uIU/mL (0.32-4.0)
== END 2024-03-14 15:09 | disposition home or self-care (01) ==
LOC: HO.WFDLDS 15:08
PROVIDERS: Visit Provider Internal Medicine
DX: Z00.00 Encounter for general adult medical examination without abnormal findings (principal); I10 Essential (primary) hypertension; E78.5 Hyperlipidemia, unspecified; E11.65 Type 2 diabetes mellitus with hyperglycemia
CPT/HCPCS: 36415; 80053; 80061; 84443; 85025

== ENCOUNTER 2024-05-06 15:08 | Outpatient (REF) | payer OTHER, SELFPAY ==
[2024-05-06 17:20] LABS: Parathyroid Hormone Intact 49.2 pg/mL (8.7-77.1)
[2024-05-09 21:54] LABS: Calcium, Ionized 5.1 mg/dL (4.7-5.5)
[2024-05-12 16:48] LABS: VITAMIN D (1,25 OH) D3 39 pg/mL; Vit D (1,25-Dihydroxy) Total 39 pg/mL (18-72); Vitamin D (1,25 OH) D2 <8 pg/mL
== END 2024-05-06 15:09 | disposition home or self-care (01) ==
LOC: HO.LAB 15:08
PROVIDERS: PCP Family Medicine; Visit Provider Physician Assistant
DX: E83.52 Hypercalcemia (principal); E11.65 Type 2 diabetes mellitus with hyperglycemia; I10 Essential (primary) hypertension; E78.5 Hyperlipidemia, unspecified
CPT/HCPCS: 36415; 82330; 82652; 82947; 83970

== ENCOUNTER 2024-05-06 15:08 | Outpatient (AMB) | payer OTHER, SELFPAY ==
--- NOTE | 2024-05-06 15:09 | MHC.OFFVIS ---
Vital Signs 05/06/24 15:10 Height 5 ft 1 in Weight 172 lb 13.478 oz BMI 32.7 BP 132/68 Blood Pressure Location Lt brachial Position Sitting Pulse 79 Pulse Source Pulse Oximeter Intake Visit Reasons: F/U T2DM/LVM Intake Note: Patient presents today for D2MT follow up visit. 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 Required: No Accompanied by: Self / Same As Patient Allergies No Known Allergies Allergy (Verified 05/06/24 15:18) Medication List - Last Reconciled 05/06/24 by Sammi Turner PA-C aspirin 81 mg PO DAILY atorvastatin 40 mg PO DAILY 30 days betamethasone valerate 0.1% 1 appl topical BID PRN 14 days blood sugar diagnostic ([employer] Verio test strips) As directed blood-glucose meter ([employer] Verio Flex Meter) Test BS As directed, 999 days blood-glucose sensor (EverPower Angie 3 Sensor device) As directed change every 14 days cetirizine (Zyrtec) 10 mg PO DAILY diclofenac sodium 1% (Voltaren Arthritis Pain) 2 grams topical QID glipizide ER 10 mg PO BID 30 days glucose (Dex4 Glucose) 16 grams (4 x 4 gram) PO Q15M PRN hydrocortisone 2.5% (Proctosol HC) 1 appl [place] BID-QID PRN insulin glargine (Lantus Solostar U-100 Insulin) 18 units (0.18 mL) subcut QPM lancets Test BS 2 times a day As directed, 90 days Lantus Solostar U-100 Insulin (insulin glargine) 18 units (0.18 mL) subcut QPM 30 days NS lisinopril 5 mg PO DAILY 30 days metformin 500 mg PO BID 30 days skovgtufgqok-Bx-pino-minerals tabs PO pantoprazole 40 mg PO DAILY pen needle, diabetic (BD Ultra-Fine Micro Pen Needle) To treat high blood sugar QPM. As directed, 90 days HPI HPI F/U T2DM/LVM: Details: Patient is a 53-year-old female with a significant past medical history of hyperlipidemia, hypertension, type 2 diabetes presenting today for follow-up regarding her diabetes. Endo: Her A1c in February was 10.5. She is on insulin glargine 22 units, metformin 500mg b.i.d, Mounjaro 2.5mg, glipizide 10mg b.i.d. -at our last visit I did increase her Mounjaro but she was getting constipation and nausea with this so decreased it back down to 2.5. does not tolerate trulicity -diarrhea increased doses of metformin caused GI distress did not tolerate glyburide cgm- usage 98%, average glucose 295, GMI 10.4%, glucose variability 25.9%. Very high 68%, hyperglycemic 26%, in range 6%, 0% hypoglycemia she is on acei and atorvastatin. last lipids wnl. fam hx of t2dm CV: Blood pressure today in the office is 132/68. She is currently on lisinopril 5 mg and atorvastatin 40 mg for cholesterol control. [facility] Medical History (Updated 05/06/24 @ 15:50 by Sammi Turner PA-C) Diabetes mellitus type 2 in obese Hyperlipidemia Diabetes type 2, uncontrolled GERD (gastroesophageal reflux disease) Diabetic nephropathy Tension headache Acute low back pain Cervicalgia Surgical History (Updated 03/14/24 @ 14:26 by Lis Fuentes CMA) History of ankle surgery Hx of section H/O dilation and curettage History of kidney surgery Family History (Updated 03/14/24 @ 14:28 by Lis Fuentes CMA) Father Diabetes Hypertension Mother Hypertension Maternal Grandmother Cancer Social History Housing: House Alcohol intake: never Patient Tobacco Use Status: Never used Tobacco e-Cigarette/Vaping Use: Never Used Second Hand Smoke Exposure: No service: No Current occupational status: employed Current occupational exposures/hazards: No Cognitive needs: No Hearing needs: No Vision needs: No Physical Exam Const Orientation/consciousness: patient oriented x3 Neck Neck: Yes no lymphadenopathy Thyroid: Thyroid normal Carotids: no bruits Resp Auscultation: clear to auscultation bilaterally Cardio Rate: regular rate Rhythm: regular rhythm Heart sounds: S1 normal heart sound present and S2 normal heart sound present Peripheral pulses: dorsalis pedis present Neuro General: patient oriented x3, gait normal and no focal motor deficits Extrem Other: Monofilament sensation intact bilaterally. Vibratory sensation intact bilaterally. Skin intact. General: Yes normal to inspection Results Reviewed Results Reviewed: Laboratory Tests 08/12/23 03/12/24 03/14/24 12:03 10:11 15:11 Sodium 141 Potassium 4.2 Chloride 105 Carbon Dioxide 26 Anion Gap 14 BUN 13 Creatinine 0.74 Estimated GFR > 60 Random Glucose 191 H Hgb A1c (Clinic) 14.0 H Hemoglobin A1c % 10.4 H AST 13 ALT 22 Alkaline Phosphatase 68 Cholesterol 169 LDL Cholesterol, Calc 85 HDL Cholesterol 50 Urine Creatinine 117.93 Urine Microalbumin 33.0 Microalb/Creat Ratio 27.9 Assessment & Plan Assessment & Plan (1) Diabetes type 2, uncontrolled: Code(s): E11.65 - Type 2 diabetes mellitus with hyperglycemia Category: Medical Qualifiers: Glycemic state: with hyperglycemia Qualified Code(s): E11.65 - Type 2 diabetes mellitus with hyperglycemia Plan: We will switch from Mounjaro to Ozempic. She did not tolerate Trulicity. We discussed risks and benefits and adverse effects of this medication. Continue glipizide and metformin. Increase Lantus to 30 units. Refuses mealtime insulin at this point. Would like time to think about this. I offered her referral to a shipwright helper but she does not have time at this point and we will let me know after the new year. We reviewed the adverse effects associated with the poorly controlled diabetes including increased risk of stroke, heart attack, blindness, amputations, kidney disease etc. (2) Hypertension: Code(s): I10 - Essential (primary) hypertension Category: Medical Qualifiers: Hypertension type: primary hypertension Qualified Code(s): I10 - Essential (primary) hypertension Plan: WNL. Continue current regimen (3) Hyperlipidemia: Code(s): E78.5 - Hyperlipidemia, unspecified Category: Medical Plan: As above (4) Hypercalcemia: Code(s): E83.52 - Hypercalcemia Category: Medical Plan: Last labs from physical exam showed hypercalcemia. Patient states that she has not heard about her labs and would like an explanation for this. I will order labs today and have patient follow back up in primary care. Orders: Orders Calcium, Ionized Today E83.52 - Hypercalcemia Parathyroid Hormone Intact Today E83.52 - Hypercalcemia Vitamin D 1,25 dihydroxy Today E83.52 - Hypercalcemia Medications: New semaglutide (Ozempic) 0.25 mg (0.368 mL) subcut QWEEK 3 mL 1RF Changed From Lantus Solostar U-100 Insulin (insulin glargine) 18 units (0.18 mL) subcut QPM 30 days 15 mL 3RF NS To Lantus Solostar U-100 Insulin (insulin glargine) 30 units (0.3 mL) subcut QPM 30 days 9 mL 3RF NS Discontinued insulin glargine (Lantus Solostar U-100 Insulin) Discontinued Reason: Doctor's Order 18 units (0.18 mL) subcut QPM 15 mL 3RF Coding Level of Care Code Est Pt Level 4 (31469) Complex EM visit Add On G2211 Diagnoses Uncontrolled type 2 diabetes mellitus with hyperglycemia E11.65 Glycemic state: with hyperglycemia Primary hypertension I10 Hypertension type: primary hypertension Hyperlipidemia E78.5 Hypercalcemia E83.52
[2024-05-06 15:10] VITALS: BP 132/68; PULSE 79; BMI 32.7
[2024-05-06 15:27] LABS: Glucose, Whole Blood 292 mg/dL (60-115)
== END 2024-05-06 15:55 | disposition home or self-care (01) ==
PROVIDERS: PCP Family Medicine; Visit Provider Physician Assistant
DX: E11.65 Type 2 diabetes mellitus with hyperglycemia (principal); I10 Essential (primary) hypertension; E78.5 Hyperlipidemia, unspecified; E83.52 Hypercalcemia

== ENCOUNTER 2024-06-17 14:45 | Outpatient (AMB) | payer OTHER, SELFPAY ==
--- NOTE | 2024-06-17 14:49 | A.OFFVIS_ITS ---
Vital Signs 06/17/24 14:54 Height 5 ft 1 in Weight 169 lb 12.095 oz BMI 32.1 BP 120/70 Blood Pressure Location Rt brachial Position Sitting Pulse 78 Pulse Source Pulse Oximeter Intake Visit Reasons: DM Intake Note: Patient presents today for a follow-up on Type 2 Diabetes Mellitus: Last Diabetic eye exam was on: DUE Last Podiatry exam was on: Does not see a [place] Support Worker Most recent HbA1c: 11.4%, 06/17/2024 Random Glucose- 180 mg/dL, Today Hide Puller Required: No Accompanied by: Self / Same As Patient Allergies No Known Allergies Allergy (Verified 06/17/24 14:55) Medication List - Last Reconciled 06/17/24 by Sammi Turner PA-C aspirin 81 mg PO DAILY atorvastatin 40 mg PO DAILY 30 days betamethasone valerate 0.1% 1 appl topical BID PRN 14 days blood sugar diagnostic (OneTouch Verio test strips) As directed blood-glucose meter (InSampleTouch Verio Flex Meter) Test BS As directed, 999 days blood-glucose sensor (LevlrStyle Angie 3 Sensor device) As directed change every 14 days cetirizine (Zyrtec) 10 mg PO DAILY diclofenac sodium 1% (Voltaren Arthritis Pain) 2 grams topical QID glipizide ER 10 mg PO BID 30 days glucose (Dex4 Glucose) 16 grams (4 x 4 gram) PO Q15M PRN hydrocortisone 2.5% (Proctosol HC) 1 appl ND BID-QID PRN insulin lispro (Humalog KwikPen (U-100) Insulin) 4 units (0.04 mL) subcut TID lancets Test BS 2 times a day As directed, 90 days Lantus Solostar U-100 Insulin (insulin glargine) 40 units (0.4 mL) subcut QPM 30 days NS lisinopril 5 mg PO DAILY 30 days metformin 500 mg PO BID 30 days zmuqynsbcswh-Zf-lvwk-minerals tabs PO pantoprazole 40 mg PO DAILY pen needle, diabetic (BD Ultra-Fine Micro Pen Needle) To treat high blood sugar QPM. As directed, 90 days semaglutide (Ozempic) 0.5 mg (0.736 mL) subcut QWEEK HPI HPI DM: Details: Patient is a 53-year-old female with a significant past medical history of hyperlipidemia, hypertension, type 2 diabetes presenting today for follow-up regarding her diabetes. Endo: Her A1c today is 11.1. She is on insulin glargine 30 units, metformin 500mg b.i.d, ozempic 0.25 mg weekly, glipizide 10mg b.i.d. Tolerating ozempic 0.25 mg. does not tolerate mounjaro does not tolerate trulicity -diarrhea increased doses of metformin caused GI distress did not tolerate glyburide cgm- usage 98%, average glucose 309, GMI 10.7%, glucose variability 26.9%. Very high 74%, hyperglycemic 18%, in range 8%, 0% hypoglycemia she is on acei and atorvastatin. last lipids wnl. fam hx of t2dm CV: Blood pressure today in the office is 120/70. She is currently on lisinopril 5 mg and atorvastatin 40 mg for cholesterol control. [facility] Medical History (Updated 05/06/24 @ 15:50 by Sammi Turner PA-C) Diabetes mellitus type 2 in obese Hyperlipidemia Diabetes type 2, uncontrolled GERD (gastroesophageal reflux disease) Diabetic nephropathy Tension headache Acute low back pain Cervicalgia Surgical History History of ankle surgery Hx of section H/O dilation and curettage History of kidney surgery Family History Father Diabetes Hypertension Mother Hypertension Maternal Grandmother Cancer Social History Housing: House Alcohol intake: never Patient Tobacco Use Status: Never used Tobacco e-Cigarette/Vaping Use: Never Used Second Hand Smoke Exposure: No service: No Current occupational status: employed Current occupational exposures/hazards: No Cognitive needs: No Hearing needs: No Vision needs: No Physical Exam Vital Signs: Last Vital Signs Pulse 78 06/17/24 14:54 BP 120/70 06/17/24 14:54 BMI result Body Mass Index 32.1 Const Orientation/consciousness: patient oriented x3 HEENT Ears: hearing grossly normal bilaterally Neck Thyroid: Thyroid normal Lymphatic: no lymphadenopathy noted Resp Auscultation: clear to auscultation bilaterally Cardio Rate: regular rate Rhythm: regular rhythm Heart sounds: S1 normal heart sound present and S2 normal heart sound present Skin General skin exam: no rashes or lesions noted Neuro General: patient oriented x3, gait normal and no focal motor deficits Office Procedures Glucose Monitoring Details Details: see [facility] [id number] - Glucose monitoring, continuous-physician I&R Procedure code (CPT) selection complete Results AMB Hemoglobin A1c AMB Hemoglobin A1c 11.4 % Last Edit by RASTA Lynch on 06/17/24 15:0 8 Results Reviewed Results Reviewed: Laboratory Last Values Glucose (Clinic) 180 mg/dL (60-115) H 06/17/24 14:57 Assessment & Plan Assessment & Plan (1) Diabetes type 2, uncontrolled: Code(s): E11.65 - Type 2 diabetes mellitus with hyperglycemia Category: Medical Qualifiers: Glycemic state: with hyperglycemia Qualified Code(s): E11.65 - Type 2 diabetes mellitus with hyperglycemia Plan: increase lantus to 40 units start humalog 4 units TID with meals continue metformin increase ozempic to 0.5 mg weekly (2) Hypertension: Code(s): I10 - Essential (primary) hypertension Category: Medical Qualifiers: Hypertension type: primary hypertension Qualified Code(s): I10 - Essential (primary) hypertension Plan: wnl continue current plan Orders: Orders AMB Hemoglobin A1c Today E11.65 - Type 2 diabetes mellitus with hyperglycemia Medications: New semaglutide (Ozempic) 0.5 mg (0.736 mL) subcut QWEEK 3 mL 2RF insulin lispro (Humalog KwikPen (U-100) Insulin) 4 units (0.04 mL) subcut TID 15 mL 2RF Changed From Lantus Solostar U-100 Insulin (insulin glargine) 30 units (0.3 mL) subcut QPM 30 days 9 mL 3RF NS To Lantus Solostar U-100 Insulin (insulin glargine) 40 units (0.4 mL) subcut QPM 30 days 15 mL 3RF NS From metformin 500 mg PO BID 30 days 60 tabs 3RF To metformin 500 mg PO BID 90 days 180 tabs 3RF Refilled atorvastatin 40 mg PO DAILY 30 days 90 tabs 2RF Discontinued semaglutide (Ozempic) Discontinued Reason: Doctor's Order 0.25 mg (0.368 mL) subcut QWEEK 3 mL 1RF Coding Level of Care Code Est Pt Level 4 (28044) Diagnoses Uncontrolled type 2 diabetes mellitus with hyperglycemia E11.65 Glycemic state: with hyperglycemia Primary hypertension I10 Hypertension type: primary hypertension CPT Codes Details - CPT: 26706 - Glucose monitoring, continuous-physician I&R ([id number])
[2024-06-17 14:54] VITALS: BP 120/70; PULSE 78; BMI 32.1
[2024-06-17 15:01] LABS: Glucose, Whole Blood 180 mg/dL (60-115)
== END 2024-06-17 15:33 | disposition home or self-care (01) ==
PROVIDERS: PCP Family Medicine; Visit Provider Physician Assistant
DX: E11.65 Type 2 diabetes mellitus with hyperglycemia (principal); I10 Essential (primary) hypertension

== ENCOUNTER → 2024-06-17 14:45 | Outpatient (BNVA) | payer OTHER, SELFPAY | PROVIDERS: PCP Family Medicine; Visit Provider Physician Assistant | DX: E11.65 Type 2 diabetes mellitus with hyperglycemia (principal); Z79.4 Long term (current) use of insulin; I10 Essential (primary) hypertension | CPT/HCPCS: 82947; 83036 ==

== ENCOUNTER 2024-07-15 15:11 | Outpatient (AMB) | payer OTHER, SELFPAY ==
[2024-07-15 15:12] VITALS: BP 142/82; PULSE 102; BMI 32.7
--- NOTE | 2024-07-15 15:12 | MHC.OFFVIS ---
Vital Signs 07/15/24 15:12 Height 5 ft 1 in Weight 173 lb 1.006 oz BMI 32.7 BP 142/82 H Blood Pressure Location Lt brachial Position Sitting Pulse 102 H Pulse Source Pulse Oximeter Intake Visit Reasons: dm Intake Note: Patient present today for Type 2 Diabetes Mellitus. Last Diabetic eye exam: Last Podiatry Visit: Random Glucose: 248 mg/dl HgA1C: 11.4% 06/17/24 Ultrasonic Seaming Machine Operator Required: No Accompanied by: Self / Same As Patient Allergies No Known Allergies Allergy (Verified 07/15/24 15:18) Medication List - Last Reconciled 07/15/24 by Sammi Turner PA-C aspirin 81 mg PO DAILY atorvastatin 40 mg PO DAILY 30 days betamethasone valerate 0.1% 1 appl topical BID PRN 14 days blood sugar diagnostic (OneTouch Verio test strips) As directed blood-glucose meter (OpenTextuch Verio Flex Meter) Test BS As directed, 999 days blood-glucose sensor (QuickoLabsStyle Angie 3 Sensor device) As directed change every 14 days cetirizine (Zyrtec) 10 mg PO DAILY diclofenac sodium 1% (Voltaren Arthritis Pain) 2 grams topical QID glipizide ER 10 mg PO BID 30 days glucose (Dex4 Glucose) 16 grams (4 x 4 gram) PO Q15M PRN hydrocortisone 2.5% (Proctosol HC) 1 appl CA BID-QID PRN insulin lispro (Humalog KwikPen (U-100) Insulin) 6 units (0.06 mL) subcut TID lancets Test BS 2 times a day As directed, 90 days Lantus Solostar U-100 Insulin (insulin glargine) 50 units (0.5 mL) subcut QPM 30 days NS lisinopril 5 mg PO DAILY 30 days metformin 500 mg PO BID 90 days loxclrjudnxc-Ww-pare-minerals tabs PO pantoprazole 40 mg PO DAILY pen needle, diabetic (BD Ultra-Fine Micro Pen Needle) To treat high blood sugar QPM. As directed, 90 days semaglutide (Ozempic) 1 mg (0.75 mL) subcut QWEEK HPI HPI dm: Details: Patient is a 54-year-old female with a significant past medical history of hyperlipidemia, hypertension, type 2 diabetes presenting today for follow-up regarding her diabetes. Endo: Her A1c today is 11.4. She is on insulin glargine 40 units, humalog 4 units TID, metformin 500mg b.i.d, ozempic 0.5 mg weekly, glipizide 10mg b.i.d. does not tolerate mounjaro does not tolerate trulicity -diarrhea increased doses of metformin caused GI distress did not tolerate glyburide cgm- usage 86%, average glucose 241, GMI 9.1%, glucose variability 36%. Very high 47%, hyperglycemic 24%, in range 29%, 0% hypoglycemia she is on acei and atorvastatin. last lipids wnl. fam hx of t2dm CV: Blood pressure today in the office is 142/82. She is currently on lisinopril 5 mg and atorvastatin 40 mg for cholesterol control. vasc: hx of right lower leg dvt in 2008. She states that she fell on the ice and injured her lower leg and then ended up with a DVT. Her PCP at the time manage this with Coumadin for 3 months and she states over that year she would intermittently get Charley horses or pain in that lower leg and he would put her back on Coumadin. She thinks she only ultimately ended up with Coumadin for about a year. She went to the ER a couple days ago because she had similar pain in her lower leg that reminded her of her DVT. There was no swelling or erythema but there was a lot of calf pain. She had an ultrasound which ruled out an acute clot. She states that they did notice that she still has remnants of the old clot. She is not sure if this is causing some of her pain. There was no injury. They told her that this was not sciatica because it does not radiate from her back. The pain is mostly in the calf and radiates up to the back of her leg with exertion. No foot pain. [facility] Medical History (Updated 07/15/24 @ 15:30 by Sammi Turner PA-C) Diabetes mellitus type 2 in obese Hyperlipidemia Diabetes type 2, uncontrolled GERD (gastroesophageal reflux disease) Diabetic nephropathy Tension headache Acute low back pain Cervicalgia Surgical History History of ankle surgery Hx of section H/O dilation and curettage History of kidney surgery Family History Father Diabetes Hypertension Mother Hypertension Maternal Grandmother Cancer Social History Housing: House Alcohol intake: never Patient Tobacco Use Status: Never used Tobacco e-Cigarette/Vaping Use: Never Used Second Hand Smoke Exposure: No service: No Current occupational status: employed Current occupational exposures/hazards: No Cognitive needs: No Hearing needs: No Vision needs: No Physical Exam Const Orientation/consciousness: patient oriented x3 Neck Neck: Yes no lymphadenopathy Thyroid: Thyroid normal Carotids: no bruits Resp Auscultation: clear to auscultation bilaterally Cardio Rate: regular rate Rhythm: regular rhythm Heart sounds: S1 normal heart sound present and S2 normal heart sound present Peripheral pulses: dorsalis pedis present Neuro General: patient oriented x3, gait normal and no focal motor deficits Extrem Other: Monofilament sensation intact bilaterally. Vibratory sensation intact bilaterally. Skin intact. Right calf tenderness to palpation. Full range of motion of the ankle and foot. General: Yes normal to inspection Results Reviewed Results Reviewed: Laboratory Tests 03/14/24 06/17/24 15:11 15:07 Creatinine 0.74 Estimated GFR > 60 Hgb A1c (Clinic) 11.4 H Triglycerides 172 H Cholesterol 169 LDL Cholesterol, Calc 85 HDL Cholesterol 50 Assessment & Plan Assessment & Plan (1) Diabetes type 2, uncontrolled: Code(s): E11.65 - Type 2 diabetes mellitus with hyperglycemia Category: Medical Qualifiers: Glycemic state: with hyperglycemia Qualified Code(s): E11.65 - Type 2 diabetes mellitus with hyperglycemia Plan: increase lantus to 50 units nightly increase humalog to 6 units 3 times a day continue metformin continue glipizide increase ozempic 1 mg weekly (2) Diabetic nephropathy: Code(s): E11.21 - Type 2 diabetes mellitus with diabetic nephropathy Category: Medical Qualifiers: Diabetes mellitus type: type 2 Qualified Code(s): E11.21 - Type 2 diabetes mellitus with diabetic nephropathy Plan: stable. will monitor (3) Hypertension: Code(s): I10 - Essential (primary) hypertension Category: Medical Qualifiers: Hypertension type: primary hypertension Qualified Code(s): I10 - Essential (primary) hypertension Plan: a little elevated above goal however, in pain with her right lower leg at times. (4) History of deep venous thrombosis (DVT) of distal vein of right lower extremity: Code(s): Z86.718 - Personal history of other venous thrombosis and embolism Category: Medical Plan: 2008 had a right dvt, presumed provoked by injury. she was on coumadin on and off for the year. referral to vascular for consult. Orders: Referrals Vascular Surgery Referral Z86.718 - Personal history of other venous thrombosis and embolism Medications: New semaglutide (Ozempic) 1 mg (0.75 mL) subcut QWEEK 3 mL 5RF Changed From insulin lispro (Humalog KwikPen (U-100) Insulin) 4 units (0.04 mL) subcut TID 15 mL 2RF To insulin lispro (Humalog KwikPen (U-100) Insulin) 6 units (0.06 mL) subcut TID 15 mL 2RF From Lantus Solostar U-100 Insulin (insulin glargine) 40 units (0.4 mL) subcut QPM 30 days 15 mL 3RF NS To Lantus Solostar U-100 Insulin (insulin glargine) 50 units (0.5 mL) subcut QPM 30 days 15 mL 3RF NS Discontinued semaglutide (Ozempic) Discontinued Reason: Doctor's Order 0.5 mg (0.736 mL) subcut QWEEK 3 mL 2RF Coding Level of Care Code Est Pt Level 4 (39849) Complex EM visit Add On G2211 Diagnoses Uncontrolled type 2 diabetes mellitus with hyperglycemia E11.65 Glycemic state: with hyperglycemia Diabetic nephropathy associated with type 2 diabetes mellitus E11.21 Diabetes mellitus type: type 2 Primary hypertension I10 Hypertension type: primary hypertension History of deep venous thrombosis (DVT) of distal vein of right lower extremity Z86.718
[2024-07-15 15:25] LABS: Glucose, Whole Blood 248 mg/dL (60-115)
--- OUTSIDE RECORDS SUMMARY | 2024-07-15 16:19 | XMS_ITS | Encounter Summary ---
Author Organization [facility], Address [address] [facility] [place] [address] Phone Care Team Providers Care Clark Driver Name Role Phone Mars Tellez MD Primary Care Provider [phone] Encounter Details Date Type Department Care Team (Late st Contact Info) Description 06/07/2024 Documentation Only [facility] [address] [place] [address] [place], [place] [address] [place] [id number] Social History Tobacco Use Types Packs/Day Years Used Date Smoking Tobacco: Never Comments:Smoking History Inf o:Patient not screened Alcohol Use Standard Drinks/Week Comments No 0 (1 standard drink = 0.6 oz pur e alcohol) Comments Unknown Sex and Gender Information Value Date Recorded Sex Assigned at Not on file Legal Sex Female 4:33 PM EST Gender Identity Not on file Sexual Orientation Not on file documented as of this encounter Plan of Treatment Upcoming Encounters Date Type Department Care Team (Late st Contact Info) Description 11/08/2024 1:30 PM EDT Imaging Encounter [facility] [address] [place] [address] Terrence Gresham MD [address] [place] [address] [place] [address] documented as of this encounter Visit Diagnoses Not on filedocumented in this encounter Care Teams Clark Driver Relationship Specialty Start Date End Date Mars Tellez MD [address] [place] [address] [id number] [place], [place] PCP - General 04/26/19 documented as of this encounter
--- OUTSIDE RECORDS SUMMARY | 2024-07-15 16:19 | XMS_ITS | Clinical Summary ---
Author Organization [facility] Address [address] [place] [address] Phone Care Team Providers Care Supervisor Estimator And Drafter Name Role Phone Ludwin Mtahew MD Primary Care Provider [phone] Allergies No known active allergies Medications Medication Sig Dispensed Refills Start Date End Date Status methocarbamoL (ROBAXIN) 750 mg tablet Take 1 tablet (750 mg total) by mouth 3 (three) times a day if needed for muscle spasms for up to 10 days. 20 tablet 07/13/2024 07/23/2024 Active methocarbamoL (ROBAXIN) 750 mg tablet Take 1 tablet (750 mg total) by mouth 3 (three) times a day if needed for muscle spasms for up to 10 days. 20 tablet 07/13/2024 07/13/2024 Discontinued Active Problems No known active problems Encounters Date Type Department Care Team Description 07/12/2024 9:36 PM EST - 07/13/2024 12:58 AM EST Emergency [facility] Emergency [address] [place] [address] Tavon Santos MD Right leg pain (Primary Dx); Deep vein thrombosis (DVT) of right lower extremity, unspecified chronicity, unspecified vein (CMS/HCC) Discharge Disposition: Home or Self Care from Last 3 Months Social History Tobacco Use Types Packs/Day Years Used Date Smoking Tobacco: Never Assessed Sex and Gender Information Value Date Recorded Sex Assigned at Female 07/12/2024 10:15 PM EST Gender Identity Female 07/12/2024 10:15 PM EST Sexual Orientation Straight 07/12/2024 10 :15 PM EST Job Start Date Occupation Industry Not on file Not on file Not on file Obstetrics History Last Filed Vital Signs Vital Sign Reading Time Taken Comments Blood Pressure 166/72 07/13/2024 12:03 AM EST Pulse 88 07/13/2024 12:03 AM EST Temperature 36.5 ??C (97.7 ??F) 07/13/2024 1 2:03 AM EST Respiratory Rate 18 07/13/2024 12:0 3 AM EST Oxygen Saturation 98% 07/13/2024 12: 03 AM EST Inhaled Oxygen Concentration - - Weight 78.8 kg (173 lb 11.2 oz) 07/12/2024 6:12 PM EST Height 157.5 cm (5' 2 ) 07/12/2024 6:12 PM EST Body Mass Index 31.77 07/12/2024 6:12 PM EST Plan of Treatment Health Maintenance Due Date Last Done Comments Breast Cancer Screening 1970 Hepatitis B Vaccines (1 of 3 - 19+ 3-dose series) 1989 Cervical Cancer Screening: Pap Smear 1991 COVID-19 Vaccine ( season) 2024 08/31/2021, 12/06/2020, 07/20/2020 Cholesterol Screening (Lipid Panel) 07/13/2024 Colorectal Cancer Screening: Colonoscopy 07/13/2024 Depression Screening 07/13/2024 HIV Screening 07/13/2024 Hepatitis C Screening 07/13/2024 Hypertension/CHF/CAD Annual BMP Blood Test 07/13/2024 Social Influencers of Health Screening 07/13/2024 DTaP,Tdap,and Td Vaccines (2 - Td or Tdap) 08/15/2029 08/15/2019 Zoster Vaccines Completed 11/13/2020, 06/26/2020 Influenza Vaccine Completed 05/30/2024, , 03/24/2022, Additional history exists HIB Vaccines Aged Out No longer eligi ble based on patient's age to complete this topic HPV Vaccines Aged Out No longer eligi ble based on patient's age to complete this topic Hepatitis A Vaccines Aged Out No long er eligible based on patient's age to complete this topic IPV Vaccines Aged Out No longer eligi ble based on patient's age to complete this topic MMR Vaccines Aged Out No longer eligi ble based on patient's age to complete this topic Meningococcal ACWY Vaccine Aged Out N o longer eligible based on patient's age to complete this topic Pneumococcal Vaccine: Pediatrics (0 to 5 Years) and At-Risk Patients (6 to 64 Years) Aged Out No longer eligible based on patient's age to complete this topic RSV Immunization Patients Under 20 months Aged Out No longer eligible based on patient's age to complete this topic Varicella Vaccines Aged Out No longer eligible based on patient's age to complete this topic Procedures Procedure Name Priority Date/Time Associated Diagnosis Comments VAS US DUPLEX LOWER EXT VENOUS RIGHT STAT 07/12/2024 11:05 PM EST Deep vein thrombosis (DVT) of right lower extremity, unspecified chronicity, unspecified vein (CMS/HCC) from Last 3 Months Results * Vascular US duplex lower extremity venous right (07/12/2024 11:05 PM EST) Anatomical Region Laterality Modality Vascular, Abdomen Ultrasound 07/12/2024 11:2 7 PM EST Impressions 07/12/2024 11:27 PM EST Possible nonocclusive chronic DVT remnants in the right popliteal vein. No acute occlusive DVT. This document has been electronically signed by: Robson Mendez MD on 07/12/2024 23:27:37 Narrative 07/12/2024 11:27 PM EST Right Lower Extremity Venous Duplex Ultrasound COMPARISON: None FINDINGS: Small echogenic foci in the lumen of the right popliteal vein, which is compressible with normal Doppler blood flow. The remaining visualized deep veins are compressible with normal flow. No acute occlusive DVT. The visualized superficial veins are patent. Unremarkable soft tissues. Grayscale, spectral waveform analysis, and color flow imaging was performed. Procedure Note Robson Mendez MD - 07/12/2024 Right Lower Extremity Venous Duplex Ultrasound COMPARISON: None FINDINGS: Small echogenic foci in the lumen of the right popliteal vein, which is compressible with normal Doppler blood flow. The remaining visualizeddeep veins are compressible with normal flow. No acute occlusive DVT. The visualized superficial veins are patent. Unremarkable soft tissues. Grayscale, spectral waveform analysis, and color flow imaging was performed. IMPRESSION: Possible nonocclusive chronic DVT remnants in the right popliteal vein.No acute occlusive DVT. This document has been electronically signed by: Robson Mendez MD on 07/12/2024 23:27:37 Jose Angel [place] CV VASCULAR PROCEDUR ES from Last 3 Months Care Teams Supervisor Estimator And Drafter Relationship Specialty Start Date End Date Ludwin Mathew MD [address] [place] [phone] PCP - General Family Medicine 07/12/24
--- OUTSIDE RECORDS SUMMARY | 2024-07-15 16:19 | XMS_ITS | Encounter Summary ---
Author Organization [employer] Address [address] [place] [address] Care Team Providers Care Casting Agent Name Role Phone Ludwin Mathew MD Primary Care Provider [phone] Reason for Visit * Reason Comments Leg Pain Right shooting leg p ain x2 days, hx DVT Encounter Details Date Type Department Care Team (Late st Contact Info) Description 07/12/2024 9:36 PM EST - 07/13/2024 12:[address] [facility] [address] [place] [id number] Tavon Santos MD [address] [address] Right leg pain (Primary Dx); Deep vein thrombosis (DVT) of right lower extremity, unspecified chronicity, unspecified vein (CMS/HCC) Discharge Disposition: Home or Self Care Social History Tobacco Use Types Packs/Day Years Used Date Smoking Tobacco: Never Assessed Sex and Gender Information Value Date Recorded Sex Assigned at Female 07/12/2024 10:15 PM EST Gender Identity Female 07/12/2024 10:15 PM EST Sexual Orientation Straight 07/12/2024 10 :15 PM EST Job Start Date Occupation Industry Not on file Not on file Not on file documented as of this encounter Last Filed Vital Signs Vital Sign Reading [...] Mass Index 31.77 07/12/2024 6:12 PM EST documented in this encounter Discharge Instructions * Discharge Instructions* ONDINA Lucas - 07/13/2024 12:40 AM EST Your ultrasound showed a chronic DVT behind your right knee, however this may be remnant from your prior DVT, we will hold off on initiating any Coumadin or other anticoagulation right now. Possible that your pain may be related to muscle or nerve pain within your leg. We will hold off on steroid treatment for the time being given your underlying diabetes and poor control however you may take ibuprofen/Tylenol [id number] in combination with the muscle relaxer events been sent to your pharmacy. Please do not drive or operate any heavy machinery while taking this medication as it may cause drowsiness/lethargy, may find best effective taken before sleep. documented in this encounter Medications at Time of Discharge Medication Sig Dispensed Refills Start Date End Date methocarbamoL (ROBAXIN) 750 mg tablet Take 1 tablet (750 mg total) by mouth 3 (three) times a day if needed for muscle spasms for up to 10 days. 20 tablet 07/13/2024 07/23/2024 documented as of this encounter Ordered Prescriptions Prescription Sig Dispensed Refills Start Date End Da te methocarbamoL (ROBAXIN) 750 mg tablet Take 1 tablet (750 mg total) by mouth 3 (three) times a day if needed for muscle spasms for up to 10 days. 20 tablet 07/13/2024 07/23/2024 methocarbamoL (ROBAXIN) 750 mg tablet Take 1 tablet (750 mg total) by mouth 3 (three) times a day if needed for muscle spasms for up to 10 days. 20 tablet 07/13/2024 07/13/2024 documented in this encounter Discharge Disposition Disposition Code Departure Means Destination Comment s Home or Self Care documented in this encounter Progress Notes * ONDINA Lucas - 07/13/2024 12:38 AM EST ED Course as of 07/13/2438Jul 12, 20242205 Patient with pain to the right leg, partially consistent with previous DVT however there is noerythema or edema. Suspect sciatica for the patient's current concern. Will check ultrasound to verify no DVT given the patient's history. [JS] 2236 Patient resting comfortably at this time. Signed out in stable condition with ultrasound pending. [JS] ThuJul 13, 2024 0034 I received transfer of care and signout of this patient at approximately 2300 hrs. pending DVTultrasound. Pertinent labs and documentation reviewed as noted in greater detail above. Her ultrasound was concerning for a chronic nonocclusive DVT in her right popliteal vein, patient reports that in follow-up with her doctor during her initial DVT diagnosis 16 years ago, there was remnant evident at that time. No evidence of acute DVT is found on today's ultrasound. Patient does indicate that the majority of her pain is in her upper right thigh, largely laterally. Pain is exacerbated largelywith downward pressure but she also notes that pain is not made better with rest but continues withsitting or laying flat. She has had a history of sciatica in the past when she was but sheis unclear if the symptoms feel similar. She does have a history of diabetes, reports that her sugars have been difficult to control but she is working with her primary care provider to control them although she does still typically run close to 300 when she checks this daily. For this reason we will defer any steroid treatment but she will be discharged with a trial of a muscle relaxer in addition to the ibuprofen and Tylenol that she can take [id number]. Patient understands and is in agreement with this plan, she will follow-up with her primary care provider. [EN] ED Course User Index [EN] ONDINA Lucas [JS] ONDINA Washington Clinical Impressions as of 07/13/2438 Deep vein thrombosis (DVT) of right lower extremity, unspecified chronicity, unspecified vein (CMS/HCC) - chronic Right leg pain Data Unavailable 1. Deep vein thrombosis (DVT) of right lower extremity, unspecified chronicity, unspecified vein (CMS/HCC) Vascular US duplex lower extremity venous right Vascular US duplex lower extremity venous right CANCELED: Vascular US Duplex Lower Extremity Venous Left CANCELED: Vascular US Duplex Lower Extremity Venous Left Procedures * Dinorah Fajardo RN - 07/12/2024 6:09 PM EST Right side lower leg pain worse with weight bearing, relieved with diclofenac/warm compresses; hx blood clot 16 yrs ago this leg, now only taking an aspirin Starts in front of her hathaway and shoots upwards towards hip/thigh * Tavon Santos MD - 07/12/2024 5:59 PM EST Images from the original note were not included. [facility] Emergency Department Encounter Note Patient Name: Adelaida Chang Initial Evaluation: 07/12/2024 : 1970 Patient's PCP: No primary care provider on file. Emergency Provider: ONDINA Rivas Chief Complaint Patient presents with ??? Leg Pain Right shooting leg pain x2 days, hx DVT History of Present Illness HPI: 54-year-old female with a history of DVT 16 years ago previously treated with Coumadin, presents with a 3-day history of right leg pain. Patient states it is primarily located in the right calf and right thigh. It is worse with palpation and occasionally with movement. She does allude to some claudication as well as paresthesias. She denies any direct trauma. She denies any bowel or bladder incontinence. She does work doing prolonged sitting. She does occasionally have paresthesias in her rightgreat toe. Unclear if she has had a history of sciatica previously. She has tried diclofenac gel without any relief. Patient has otherwise been feeling well. She denies any chest pain or shortness ofbreath. 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 Respiratory: Negative for cough and shortness of breath. Cardiovascular: Negative for chest pain and leg swelling. Musculoskeletal: Negative for back pain and joint swelling. Skin: Negative for color change. Neurological: Negative for headaches. I have performed a ROS with the pertinent positives and negatives documented in the history of present illness. Previous History Past Medical History: History reviewed. No pertinent past medical history. Past Surgical History: History reviewed. No pertinent surgical history. Medications: Patient's Medications No medications on file Allergies: Patient has no known allergies. Social and Family History: Social History Tobacco Use ??? Smoking status: Not on file ??? Smokeless tobacco: Not on file Substance Use Topics ??? Alcohol use: Not on file No family history on file. Physical Exam ED Triage Vitals [07/12/24 1812] Temp Heart Rate Resp BP 36.6 ??C (97.9 ??F) 91 20 (!) 162/73 SpO2 Temp Source Heart Rate Source Patient Position 97 % Oral -- -- BP Location FiO2 (%) Right arm -- Physical Exam Vitals and nursing note reviewed. Constitutional: General: She is not in acute distress. HENT: Head: Normocephalic. Eyes: Pupils: Pupils are equal, round, and reactive to light. Cardiovascular: Rate and Rhythm: Normal rate and regular rhythm. Pulmonary: Effort: No respiratory distress. Breath sounds: Normal breath sounds. No wheezing. Abdominal: General: Bowel sounds are normal. Palpations: Abdomen is soft. Tenderness: There is no abdominal tenderness. Musculoskeletal: Comments: No pedal edema bilaterally. DP pulses are +1 and equal. There is right calf tenderness but no erythema. Dealer Sales Rep is 5 out of 5 bilaterally. Full range of motion all joints. Upper extremities equal lower extremities, proximal equal distal. Motor and sensation intact. Radial pulses are +2 equal bilaterally. Able to straight leg raise equally bilaterally. Positive right sciatic notch tenderness. Ambulates in the emergency department without difficulty. No lumbar muscle tenderness. No pelvis crepitus. Skin: General: Skin is warm and dry. Neurological: Mental Status: She is alert and oriented to person, place, and time. Psychiatric: Mood and Affect: Mood normal. ED Results: ED Labs: Labs Reviewed - No data to display ED EKG: No results found for this or any previous visit (from the past 4464 hour(s)). ED Radiology: Vascular US Duplex Lower Extremity Venous Left (Results Pending) The laboratory results, imaging results and other diagnostic exam results related to this ED encounter were reviewed in the EMR. ED Procedures: Procedures ED Administered Mediations: Medications - No data to display ED Pre-Disposition Vitals: Vitals: 07/12/24 1812 BP: (!) 162/73 Pulse: 91 Resp: 20 Temp: 36.6 ??C (97.9 ??F) SpO2: 97% Differential Diagnosis DVT Sciatica Muscle strain Tendinitis Phlebitis Medical Decision Making, ED Course Medical Decision Making 54-year-old female with a history of DVT, presents with a 3-day history of right leg pain. Exam concerning for sciatica. Lower suspicion for DVT given there is no erythema or edema. However given thepatient's history, along with prolonged sitting for work, will check ultrasound. Amount and/or Complexity of Data Reviewed Radiology: ordered. Please see ED Course below for updates regarding ED results and course of the ED visit. ED Course: ED Course as of 07/13/24 0713 ThuJul 12, 2024 2206 Patient with pain to the right leg, partially consistent with previous DVT however there is noerythema or edema. Suspect sciatica for the patient's current concern. Will check ultrasound to verify no DVT given the patient's history. [JS] 2237 Patient resting comfortably at this time. Signed out in stable condition with ultrasound pending. [JS] ThuJul 13, 2024 0034 I received transfer of care and signout of this patient at approximately 2300 hrs. pending DVTultrasound. Pertinent labs and documentation reviewed as noted in greater detail above. Her ultrasound was concerning for a chronic nonocclusive DVT in her right popliteal vein, patient reports that in follow-up with her doctor during her initial DVT diagnosis 16 years ago, there was remnant evident at that time. No evidence of acute DVT is found on today's ultrasound. Patient does indicate that the majority of her pain is in her upper right thigh, largely laterally. Pain is exacerbated largelywith downward pressure but she also notes that pain is not made better with rest but continues withsitting or laying flat. She has had a history of sciatica in the past when she was but sheis unclear if the symptoms feel similar. She does have a history of diabetes, reports that her sugars have been difficult to control but she is working with her primary care provider to control them although she does still typically run close to 300 when she checks this daily. For this reason we will defer any steroid treatment but she will be discharged with a trial of a muscle relaxer in addition to the ibuprofen and Tylenol that she can take [id number]. Patient understands and is in agreement with this plan, she will follow-up with her primary care provider. [EN] ED Course User Index [EN] ONDINA Lucas [JS] ONDINA Washington Clinical Impressions as of 07/13/24 0713 Deep vein thrombosis (DVT) of right lower extremity, unspecified chronicity, unspecified vein (CMS/HCC) - chronic Right leg pain ED Prescriptions: ED Prescriptions None Disposition: Data Unavailable Condition: Diagnosis / Impression: Final diagnoses: [I82.401] Deep vein thrombosis (DVT) of right lower extremity, unspecified chronicity, unspecified vein (CMS/HCC) Provider Attestation Electronically signed by FRANSISCO Rivas PA 07/12/241 This is a split/shared visit with ONDINA Washington. I personally performed the medical decision making (MDM) for the care of this patient on 07/12/24 as documented below Seen and examined agree assessment and plan Tavon Santos MD 07/12/24 10:28 PM EST MD Tavon Pham MD 07/12/241 Tavon Santos MD 07/13/24 0713 documented in this encounter Plan of Treatment Not on file documented as of this encounter Procedures Procedure Name Priority Date/Time Associated Diagnosis Comments VAS US DUPLEX LOWER EXT VENOUS RIGHT STAT 07/12/2024 11:05 PM EST Deep vein thrombosis (DVT) of right lower extremity, unspecified chronicity, unspecified vein (CMS/HCC) documented in this encounter Results * Vascular US duplex lower extremity [...] Jose Angel [place] CV VASCULAR PROCEDUR ES documented in this encounter Visit Diagnoses Diagnosis Right leg pain- Primary Pain in soft tissues of limb Deep vein thrombosis (DVT) of right lower extremity, unspecified chronicity, unspecified vein ([facility]/HCC) documented in this encounter Discontinued Medications Medication Sig Discontinue Reason Start Date End Da te methocarbamoL (ROBAXIN) 750 mg tablet Take 1 tablet (750 mg total) by mouth 3 (three) times a day if needed for muscle spasms for up to 10 days. 07/13/2024 07/13/2024 documented as of this encounter Care Teams Casting Agent Relationship Specialty Start Date End Date Ludwin Mathew MD [address] [place] [address] PCP - General Family Medicine 07/12/24 documented as of this encounter
--- OUTSIDE RECORDS SUMMARY | 2024-07-15 16:19 | XMS_ITS | Clinical Summary ---
Author Organization [facility], Address [address] [place] [address] [place] [address] Phone Care Team Providers Care Mold Hoister Name Role Phone Mars Tellez MD Primary Care Provider Allergies No known active allergies Medications aspirin (ST RALPH) 81 MG EC tablet Take 1 tablet by mouth 1 (one) time each day Active atorvastatin (LIPITOR) 40 MG tablet Take 40 mg by mouth daily 0 Active cyclobenzaprine (FLEXERIL) 10 MG tablet TAKE ONE TABLET BY MOUTH TWICE DAILY NEEDED AT BEDTIME FOR 5 DAYS 0 Active glipiZIDE (GLUCOTROL) 10 MG tablet TAKE 1 TABLET BY MOUTH 30 MINUTES BEFORE BREAKFAST AND LUNCH 30 DAY(S) 0 Active ibuprofen (ADVIL,MOTRIN) 600 MG tablet TAKE 1 TABLET BY MOUTH THREE TIMES A DAY WITH FOOD OR MILK NEEDED FOR 10 DAYS 0 Active metFORMIN (GLUCOPHAGE) 500 MG tablet Take 500 mg by mouth 1 (one) time each day with food 0 Active cetirizine (ZyrTEC) 10 MG tablet Take 1 tablet by mouth 1 (one) time each day Active amoxicillin (AMOXIL) 500 MG capsule Comments: Filled Date: Oct 06 2014 12:00AM Duration: 10 5 Active Dulaglutide 0.75 MG/0.5ML solution pen-injector Inject under the skin Active Active Problems Problem Noted Date Diagnosed Date Hydronephrosis 01/02/2020 Essential hypertension 01/02/2020 History of calculus of kidney 01/02/2020 Encounters Date Type Department Care Team Description 06/07/2024 Documentation Only [facility] [address] [place] [address] Derrick Howe MA 05/25/2024 Telephone [facility] [address] [place] [address] Shereen Vaz MA from Last 3 Months Social History Tobacco [...] on file Sexual Orientation Not on file Last Filed Vital Signs Vital Sign Reading Time Taken Comments Blood Pressure 124/66 04/16/2022 1:26 PM EDT Pulse - - Temperature - - Respiratory Rate 22 07/13/2017 12:01 PM EST Oxygen Saturation - - Inhaled Oxygen Concentration - - Weight 73.5 kg (162 lb) 12/27/2018 12:00 PM EDT Height 157.5 cm (5' 2 ) 12/27/2018 12:00 PM EDT Body Mass Index 29.63 12/27/2018 12:00 PM EDT Plan of Treatment Upcoming Encounters Date Type Department Care Team (Late st Contact Info) Description 11/08/2024 1:30 PM EDT Imaging Encounter [facility] [address] [place] [address] Terrence Gresham MD [address] [place] [address] [place] [address] Health Maintenance Due Date Last Done Comments Breast Cancer Screening 1970 Pneumococcal Vaccine: Pediat rics (0 to 5 Years) and At-Risk Patients (6 to 64 Years) (1 of 2 - PCV) 1976 Hepatitis B Vaccine (1 of 3 - 19+ 3-dose series) 06/23 Colorectal Cancer Screening: Annual FOBT 2019 Colorectal Cancer Screening: Colonoscopy 2019 Colorectal Cancer Screening: Sigmoidoscopy 2019 Influenza Vaccine (#1) 2024 Insurance [facility] INSURANCE ([id number]) [place] [id number] Care Teams Mold Hoister Relationship Specialty Start Date End Date Mars Tellez MD [address] [place] [address] [id number] [place], [place] PCP - General 04/26/19
== END 2024-07-15 15:39 | disposition home or self-care (01) ==
PROVIDERS: PCP Family Medicine; Visit Provider Physician Assistant
DX: E11.65 Type 2 diabetes mellitus with hyperglycemia (principal); E11.21 Type 2 diabetes mellitus with diabetic nephropathy; I10 Essential (primary) hypertension; Z86.718 Personal history of other venous thrombosis and embolism

== ENCOUNTER → 2024-07-15 15:11 | Outpatient (BNVA) | payer OTHER, SELFPAY | PROVIDERS: PCP Family Medicine; Visit Provider Physician Assistant | DX: E11.65 Type 2 diabetes mellitus with hyperglycemia (principal); E11.21 Type 2 diabetes mellitus with diabetic nephropathy; I10 Essential (primary) hypertension; Z86.718 Personal history of other venous thrombosis and embolism; Z79.4 Long term (current) use of insulin | CPT/HCPCS: 82947 ==

== ENCOUNTER 2024-08-02 15:17 | Outpatient (AMB) | payer OTHER, SELFPAY ==
--- NOTE | 2024-08-02 15:20 | A.OFFVIS_ITS ---
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 for HX of venous thrombosis/embolism Intake Note: New patient presents for history of venous thrombosis/embolism. Patient states she had a DVT around 16 years ago. In June patient was having pain in her leg was sent to the ED by her primary care. She was then referred to Vascular. 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 She does have a history of a DVT approximately 16 years ago, for which she was on Coumadin for 3-6 months. She states she has had no concerns since that episode of DVTs. She has not followed up with vascular or any other specialties for this DVT. She states she had concerns with the right leg pain, stating that it was similar to the pain that she had when she was diagnosed with a DVT. [facility] are performed an ultrasound, which revealed a possible nonocclusive chronic DVT remnants in the right popliteal vein with no acute occlusive DVT. She was not placed on anticoagulation, but referred to our office. She states the pain in her right leg has gone away but is still concerned. She has no other new concerns today. Patient denies any previous venous surgery or injections. Patient has a history of DVT, approximately 16 years ago. Patient denies any history of phlebitis. Trial of compression includes - nothing They now present for vascular evaluation regarding their varicose veins. COUNTS INCLUDE 234 BEDS AT THE [facility] Medical History Diabetes mellitus type 2 in obese Hyperlipidemia Diabetes type 2, uncontrolled GERD (gastroesophageal reflux disease) Diabetic nephropathy Tension headache Acute low back pain Cervicalgia Surgical History History of ankle surgery Hx of section H/O dilation and curettage History of kidney surgery Family History Father Diabetes Hypertension Mother Hypertension Maternal Grandmother Cancer Social History Housing: House Alcohol intake: never Patient Tobacco Use Status: Never used Tobacco e-Cigarette/Vaping Use: Never Used Second Hand Smoke Exposure: No service: No Current occupational status: employed Current occupational exposures/hazards: No Cognitive needs: No Hearing needs: No Vision needs: No Review of Systems Const Reports as per HPI and Denies weakness ENT Reports Normal hearing present and Denies dizziness Card Reports as per HPI, Denies chest pain, Denies chest pain at rest, Denies chest pain with activity, Denies dyspnea and Denies dyspnea on exertion Resp Reports as per HPI, Denies cough, Denies dyspnea and Denies dyspnea on exertion GI Reports as per HPI, Denies abdominal pain, Denies nausea and Denies vomiting Musc Denies numbness Skin/Breast Reports as per HPI, Denies erythema and Denies wounds Neuro Reports Normal hearing present, Denies dizziness, Denies numbness, Denies Sensory deficit (Neuro) and Denies weakness Psych Reports no additional complaints Endo Reports no additional complaints Physical Exam Const General: healthy appearing and no acute distress Orientation/consciousness: patient oriented x3 HEENT Head: Yes normal to inspection Ears: hearing grossly normal bilaterally Mouth: Normal oral and palatal mucosa present Resp Effort & Inspection: normal respiratory effort and able to speak in complete sentences Auscultation: clear to auscultation bilaterally Cardio Jugular venous distension: no JVD Rate: regular rate Rhythm: regular rhythm Heart sounds: S1 normal heart sound present and S2 normal heart sound present Bruits: no abdominal aortic bruits, no carotid bruits, no femoral bruits and no renal bruits Peripheral pulses: Peripheral pulses 2+ throughout GI Inspection: Yes normal to inspection Palpation (GI): No Abdominal aortic bruit present Skin General skin exam: no rashes or lesions noted Wounds: no wounds Hair: normal Neuro General: patient oriented x3 Cranial nerves: Yes Normal hearing present Cognition (Neuro): normal cognition Gait exam (Neuro): Normal gait present Motor exam (neuro): 5/5 motor strength present throughout Sensory Exam: No Sensory deficit (Neuro) Extrem Other: Right lower extremity: Not warm to the touch or painful to palpation. Palpable DP pulses. General: Yes normal to inspection, Yes full ROM, Yes capillary refill normal and Yes normal gait Assessment & Plan Assessment & Plan (1) Varicose veins of right lower extremity with inflammation: Code(s): I83.11 - Varicose veins of right lower extremity with inflammation Category: Medical Plan: Aedlaida is presenting today as a follow up to an ER visit on 07/12/2024 at [facility] for right leg pain. She was found to have a possible nonocclusive chronic DVT remnants in the right pop vein with no acute occlusive DVT noted. She has a hx of DVT appx 16y ago, for which she was treated with Coumadin. She has remained symptom free since. She states the pain she had that brought her to the ER was similar to the pain she experienced with the DVT. She states the pain has now gone away. She was given Methocarbamol, which she states did not really help; she states that heat helped the pain. I have ordered a stat US . I discussed with the pt that if she experiences any of the pain or shortness of breath/diff breathing, to get to the ER. We will follow up with her in the office after the US is completed. If there are any questions or concerns, please do not hesitate to reach out. Orders: Orders US venous duplex LE BI 1 Week I83.11 - Varicose veins of right lower extremity with inflammation Coding Level of Care Code New Pt Level 4 (83397) Diagnoses Varicose veins of right lower extremity with inflammation I83.11
--- OUTSIDE RECORDS SUMMARY | 2024-08-02 16:01 | XMS_ITS | Clinical Summary ---
Author Organization [facility] Address [address] [place] [address] Phone Care Team Providers Care Hydro Excavation Operator Name Role Phone Ludwin Mathew MD Primary Care Provider [phone] Allergies No known active allergies Medications methocarbamoL (ROBAXIN) 750 mg tablet Take 1 tablet (750 mg total) by mouth 3 (three) times a day if needed for muscle spasms for up to 10 days. 20 tablet 5 Active methocarbamoL (ROBAXIN) 750 mg tablet Take 1 tablet (750 mg total) by mouth 3 (three) times a day if needed for muscle spasms for up to 10 days. 20 tablet 5 07/13/19 25 Discontinued Active Problems No known active problems Encounters Date Type Department Care Team Description 07/12/2024 9:36 PM EST - 07/13/2024 12:58 AM EST Emergency [facility] Emergency [address] [place] [address] Tavon Santos MD Right leg pain (Primary Dx); Deep vein thrombosis (DVT) of right lower extremity, unspecified chronicity, unspecified vein (CMS/HCC) Discharge Disposition: Home or Self Care from Last 3 Months Social History Tobacco Use Types Packs/Day Years Used Date Smoking Tobacco: Never Assessed Comments Unknown Sex and Gender Information Value Date Recorded Sex Assigned at Female 07/12/2024 10:15 PM EST Legal Sex Female 5:59 PM EST Gender Identity Female 07/12/2024 10:15 PM EST Sexual Orientation Straight 07/12/2024 10 :15 PM EST Obstetrics History Last Filed Vital Signs Vital [...] Cancer Screening: Pap Smear 1991 COVID-19 Vaccine () 02/21/2024 08/31/2021, 12/06/2020, 07/20/2020 Cholesterol Screening (Lipid Panel) [...] by: Robson Mendez MD on 07/12/2024 23:27:37 us Jose Angel [place] CV VASCULAR PROCEDURES Final Result from Last 3 Months Insurance [facility] Care Teams Hydro Excavation Operator Relationship Specialty Start Date End Date Ludwin Mathew MD [address] [place] [address] PCP - General Family Medicine 07/12/24
--- OUTSIDE RECORDS SUMMARY | 2024-08-02 16:01 | XMS_ITS | Encounter Summary ---
Author Organization [facility] Address [address] [place] [address] Care Team Providers Care Technology Methodology Consultant Name Role Phone Ludwin Mathew MD Primary Care Provider [phone] Reason for Visit * Reason Comments Leg Pain Right shooting leg p ain x2 days, hx DVT Encounter Details Date Type Department Care Team (Late st Contact Info) Description 07/12/2024 9:36 PM EST - 07/13/2024 12:58 AM EST Emergency [facility] Emergency [address] [place] [phone] Tavon Santos MD [address] [address] Right leg pain (Primary Dx); Deep vein [...] Orientation Straight 07/12/2024 10 :15 PM EST documented as of this encounter Last Filed [...] poor control however you may take ibuprofen/Tylenol tckm-vau-danjazt in combination with the muscle relaxer events been sent to your pharmacy. Please do not drive or operate any heavy machinery while taking this medication as it may cause drowsiness/lethargy, may find best effective taken before sleep. documented in this encounter Medications at Time of Discharge methocarbamoL (ROBAXIN) 750 mg tablet Take 1 tablet (750 mg total) by mouth 3 (three) times a day if needed for muscle spasms for up to 10 days. 20 tablet 07/13/2024 documented as of this encounter Ordered Prescriptions Prescription Sig Dispense Quantity Refills Last Filled Start Date End Date methocarbamoL (ROBAXIN) 750 mg tablet Take 1 tablet (750 mg total) by mouth 3 (three) times a day if needed for muscle spasms for up to 10 days. 20 tablet 07/13/2024 methocarbamoL (ROBAXIN) 750 mg tablet Take 1 [...] 12:38 AM EST ED Course as of 07/13/24 0039 Tue Jul 12, 2024 2206 Patient with pain to the right leg, partially consistent with previous DVT however there is noerythema or edema. Suspect sciatica for the patient's current concern. Will check ultrasound to verify no DVT given the patient's history. [JS] 7 Patient resting comfortably at this time. Signed [...] found on today's ultrasound. Patient does indicate thatthe majority of her pain is in her upper right thigh, largely laterally. Pain is exacerbated largely with downward pressure but she also notes that pain is not made better with rest but continues with sitting or laying flat. She has had a history of sciatica in the past when she was but she is unclear if the symptoms feel similar. She does have a history of diabetes, reports that her sugars have been difficult to control but she is working with her primary care provider to control themalthough she does still typically run close to 300 when she checks this daily. For this reason we will defer any steroid treatment but she will be discharged with a trial of a muscle relaxer in addition to the ibuprofen and Tylenol that she can take [id number]. Patient understands and is in agreement with [...] US Duplex Lower Extremity Venous Left Procedures Cosigned by Tavon Santos MD at 07/13/2024 7:17 AM EST * Dinorah Fajardo RN - 07/12/2024 6:09 PM EST Right side lower leg pain worse with weight bearing, relieved with diclofenac/warm compresses; hx blood clot 16 yrs ago this leg, now only taking an aspirin Starts in front of her hathaway and shoots upwards towards hip/thigh * Tavon Santos MD - 07/12/2024 5:59 PM EST Images from the original note were not included. [facility] Emergency Department Encounter Note Patient Name: Adelaida [...] or shortness ofbreath. History provided by: Patient quartz cutter used: No ROS: Review of Systems Constitutional: [...] is right calf tenderness but no erythema. Hoop Maker Machine is 5 out of 5 bilaterally. Full [...] ibuprofen and Tylenol that she can take [id number]. Patient understands and is in agreement with [...] 10:28 PM EST MD Tavon Pham MD 07/12/242230 Tavon Santos MD 07/13/24 0713 documented in [...] 07/12/2024 23:27:37 Jose Angel [place] CV VASCULAR PROCEDURES Final Result documented in this encounter Visit Diagnoses Diagnosis Right leg pain- Primary Pain in soft tissues of limb Deep vein thrombosis (DVT) of right lower extremity, unspecified chronicity, unspecified vein ([facility]/HCC) documented in this encounter Discontinued Medications Medication Sig Discontinue Reason Start Date End Da te methocarbamoL (ROBAXIN) 750 mg tablet Take 1 tablet (750 mg total) by mouth 3 (three) times a day if needed for muscle spasms for up to 10 days. 07/13/2024 07/13/2024 documented as of this encounter Care Teams Technology Methodology Consultant Relationship Specialty Start Date End Date Ludwin Mathew MD [address] [place] [address] PCP - General Family Medicine 07/12/24 documented as of this encounter
--- OUTSIDE RECORDS SUMMARY | 2024-08-02 16:01 | XMS_ITS | Clinical Summary ---
Author Organization [facility], Address [address] [place] [address] [place] [address] Phone Care Team Providers Care Evidence Technician Name Role Phone Mars Tellez MD Primary [...] Only [facility] [address] [place] [address] Derrick Howe MA 05/25/2024 Telephone [facility] [address] [place] [address] Shereen Vaz MA from Last [...] Encounter [facility] [address] [place] [address] Terrence Gresham MD [address] [place] [address] [place] [address] Health Maintenance Due Date Last [...] Sigmoidoscopy 2019 Influenza Vaccine (#1) 2024 Insurance [facility] INSURANCE ([id number]) [id number] Care Teams Evidence Technician Relationship Specialty Start Date End Date Mars Tellez MD [address] [place] [address] [address] [place], [place] PCP - General 04/26/19
--- OUTSIDE RECORDS SUMMARY | 2024-08-02 16:02 | XMS_ITS | Encounter Summary ---
Author Organization [facility], Address [address] [facility] [address] Phone Care Team Providers Care Screen Tacker Name Role Phone Mars Tellez MD Primary Care Provider Encounter Details Date Type Department Care Team (Late st Contact Info) Description 06/07/2024 Documentation Only [facility] [address] [place] [address] Suyapa [place], [place] [address] [place] [address] Social History Tobacco Use Types Packs/Day Years [...] Encounter [facility] [address] [place] [address] Terrence Gresham MD [address] [place] [address] [place] [address] documented as of this encounter Visit Diagnoses Not on filedocumented in this encounter Care Teams Screen Tacker Relationship Specialty Start Date End Date Mars Tellez MD [address] [place] [address] [address] [place], [place] PCP - General 04/26/19 documented as of this encounter
== END 2024-08-02 16:03 | disposition home or self-care (01) ==
PROVIDERS: PCP Family Medicine; Visit Provider Physician Assistant Surgical
DX: I83.11 Varicose veins of right lower extremity with inflammation (principal)
CPT/HCPCS: 99204

== ENCOUNTER → 2024-08-02 15:17 | Outpatient (BNVA) | payer OTHER, SELFPAY | PROVIDERS: PCP Family Medicine; Visit Provider Surgery Vascular Surgery ==

== ENCOUNTER 2024-08-26 15:33 | Outpatient (AMB) | payer OTHER, SELFPAY ==
[2024-08-26 15:38] VITALS: BP 118/68; PULSE 96; O2SAT 96; BMI 32.5
--- NOTE | 2024-08-26 15:38 | A.OFFVIS_ITS ---
Vital Signs 08/26/24 15:38 Height 5 ft 1 in Weight 171 lb 15.369 oz BMI 32.5 BP 118/68 Blood Pressure Location Rt brachial Position Sitting Pulse 96 Pulse Source Pulse Oximeter Pulse Oximetry (%) 96 Oxygen Delivery Method Room Air Intake Visit Reasons: dm Intake Note: Patient presents today for a follow-up on Type 2 Diabetes Mellitus: Last Diabetic eye exam was on: DUE Last Podiatry exam was on: Patient does not see a Plastic Design Applier Most recent HbA1c: 11.4%, 05/28/2024 Random Glucose- 157 mg/dL, Today Opener Verifier Packer Customs Required: No Accompanied by: Self / Same As Patient Allergies No Known Allergies Allergy (Verified 08/02/24 15:23) Medication List - Last Reconciled 08/26/24 by Sammi Turner PA-C aspirin 81 mg PO DAILY atorvastatin 40 mg PO DAILY 30 days betamethasone valerate 0.1% 1 appl topical BID PRN 14 days blood sugar diagnostic (OneTouch Verio test strips) As directed blood-glucose meter (OneTouch Verio Flex Meter) Test BS As directed, 999 days blood-glucose sensor (FreeStyle Angie 3 Sensor device) As directed change every 14 days cetirizine (Zyrtec) 10 mg PO DAILY diclofenac sodium 1% (Voltaren Arthritis Pain) 2 grams topical QID glipizide ER 10 mg PO BID 30 days glucose (Dex4 Glucose) 16 grams (4 x 4 gram) PO Q15M PRN hydrocortisone 2.5% (Proctosol HC) 1 appl TN BID-QID PRN insulin lispro (Humalog KwikPen (U-100) Insulin) 6 units (0.06 mL) subcut TID lancets Test BS 2 times a day As directed, 90 days Lantus Solostar U-100 Insulin (insulin glargine) 50 units (0.5 mL) subcut QPM 30 days NS lisinopril 5 mg PO DAILY 30 days metformin 500 mg PO BID 90 days qjnzbznljuvd-Ds-phrl-minerals tabs PO pantoprazole 40 mg PO DAILY pen needle, diabetic (BD Ultra-Fine Micro Pen Needle) Use 4x a day as directed HPI HPI dm: Details: Patient is a 54-year-old female with a significant past medical history of hyperlipidemia, hypertension, type 2 diabetes presenting today for follow-up regarding her diabetes. Endo: Her A1c today is 11.4. She is on insulin glargine 50 units, humalog 6 units TID, metformin 500mg b.i.d, ozempic 1 mg weekly, glipizide 10mg b.i.d. does not tolerate mounjaro does not tolerate trulicity -diarrhea increased doses of metformin caused GI distress did not tolerate glyburide cgm- usage 90%, GMI 7.7%, glucose variability 36%. Very high 15%, hyperglycemic 28%, in range 57%, 0% hypoglycemia she is on acei and atorvastatin. last lipids wnl. fam hx of t2dm CV: Blood pressure today in the office is 118/68. She is currently on lisinopril 5 mg and atorvastatin 40 mg for cholesterol control. [facility] Medical History Diabetes mellitus type 2 in obese Hyperlipidemia Diabetes type 2, uncontrolled GERD (gastroesophageal reflux disease) Diabetic nephropathy Tension headache Acute low back pain Cervicalgia Surgical History History of ankle surgery Hx of section H/O dilation and curettage History of kidney surgery Family History Father Diabetes Hypertension Mother Hypertension Maternal Grandmother Cancer Social History Housing: House Alcohol intake: never Patient Tobacco Use Status: Never used Tobacco e-Cigarette/Vaping Use: Never Used Second Hand Smoke Exposure: No service: No Current occupational status: employed Current occupational exposures/hazards: No Cognitive needs: No Hearing needs: No Vision needs: No Physical Exam Vital Signs: Last Vital Signs Pulse 96 08/26/24 15:38 BP 118/68 08/26/24 15:38 Pulse Ox 96 08/26/24 15:38 Oxygen Delivery Method Room Air 08/26/24 15:38 BMI result Body Mass Index 32.5 Const Orientation/consciousness: patient oriented x3 HEENT Ears: hearing grossly normal bilaterally Neck Thyroid: Thyroid normal Lymphatic: no lymphadenopathy noted Resp Auscultation: clear to auscultation bilaterally Cardio Rate: regular rate Rhythm: regular rhythm Heart sounds: S1 normal heart sound present and S2 normal heart sound present Skin General skin exam: no rashes or lesions noted Neuro General: patient oriented x3, gait normal and no focal motor deficits Results Reviewed Results Reviewed: Laboratory Last Values Glucose (Clinic) 157 mg/dL (60-115) H 08/26/24 15:42 Assessment & Plan Assessment & Plan (1) Diabetes type 2, uncontrolled: Code(s): E11.65 - Type 2 diabetes mellitus with hyperglycemia Category: Medical Qualifiers: Glycemic state: with hyperglycemia Qualified Code(s): E11.65 - Type 2 diabetes mellitus with hyperglycemia Plan: increase Ozempic to 2 mg weekly. Continue Lantus 50 units, continue Humalog 6 units with meals, continue glipizide and metformin dosing. Sensors reordered today. Updated the script to the 3+. Three-month follow up. Sooner if needed. (2) Hyperlipidemia: Code(s): E78.5 - Hyperlipidemia, unspecified Category: Medical Plan: Continue current regimen. We will continue to monitor (3) Hypertension: Code(s): I10 - Essential (primary) hypertension Category: Medical Qualifiers: Hypertension type: primary hypertension Qualified Code(s): I10 - Essential (primary) hypertension Plan: WNL today. Continue current regimen. Medications: New semaglutide (Ozempic) 2 mg (0.75 mL) subcut QWEEK 3 mL 4RF blood-glucose sensor (FreeStyle Angie 3 Plus Sensor device) Use daily As directed to monitor glucose 2 ea 5RF E08.29 - Diabetes mellitus due to underlying condition with other diabetic kidney complication, R80.9 - Proteinuria, unspecified, Z79.4 - termite helper (current) use of insulin Discontinued blood-glucose sensor (FreeStyle Angie 3 Sensor device) Discontinued Reason: Doctor's Order As directed change every 14 days 2 ea 4RF Coding Level of Care Code Est Pt Level 4 (83651) Complex EM visit Add On G2211 Diagnoses Uncontrolled type 2 diabetes mellitus with hyperglycemia E11.65 Glycemic state: with hyperglycemia Hyperlipidemia E78.5 Primary hypertension I10 Hypertension type: primary hypertension
[2024-08-26 15:48] LABS: Glucose, Whole Blood 157 mg/dL (60-115)
--- OUTSIDE RECORDS SUMMARY | 2024-08-26 17:02 | XMS_ITS | Encounter Summary ---
Author Organization [facility], Address [address] [facility] [place] [address] Phone Care Team Providers Care Airline Lounge Receptionist Name Role Phone Mars Tellez MD Primary Care Provider [phone] Encounter Details Date Type Department Care Team (Late st Contact Info) Description 06/07/2024 Documentation Only [facility] [address] [place] [address] [place], [place] [address] [place] [phone] Social History Tobacco Use Types Packs/Day Years [...] Encounter [facility] [address] [place] [address] Terrence Gresham MD [address] [place] [address] [place] [address] documented as of this encounter Visit Diagnoses Not on filedocumented in this encounter Care Teams Airline Lounge Receptionist Relationship Specialty Start Date End Date Mars Tellez MD [address] [place] [address] [address] [place], [place] PCP - General 04/26/19 documented as of this encounter
--- OUTSIDE RECORDS SUMMARY | 2024-08-26 17:02 | XMS_ITS | Clinical Summary ---
Author Organization [facility] Address [address] [place] [address] Phone Care Team Providers Care Certified Detention Deputy Name Role Phone Ludwin Mathew MD Primary Care Provider [phone] Allergies No known active allergies Medications methocarbamoL (ROBAXIN) 750 mg tablet Take 1 tablet (750 mg total) by mouth 3 (three) times a day if needed for muscle spasms for up to 10 days. 20 tablet 07/13/2024 Active Active Problems No known active problems Encounters Date Type Department Care Team Description 07/12/2024 9:36 PM EST - 07/13/2024 12:58 AM EST Emergency [facility] Emergency [address] [place] [address] Tavon Santos MD Right leg [...] 1989 Cervical Cancer Screening: Pap Smear 1991 Pneumococcal Vaccine: 50+ Years (1 of 1 - PCV) 2020 COVID-19 Vaccine ( - season) 2024 08/31/2021, 12/06/2020, 07/20/2020 Cholesterol Screening [...] patient's age to complete this topic Meningococcal B Vacine Aged Out No lo nger eligible based on patient's age to complete [...] Final Result from Last 3 Months Insurance [facility] Care Teams Certified Detention Deputy Relationship Specialty Start Date End Date Ludwin Mathew MD [address] [place] [address] PCP - General Family Medicine 07/12/24
--- OUTSIDE RECORDS SUMMARY | 2024-08-26 17:02 | XMS_ITS | Clinical Summary ---
Author Organization [facility], Address [address] [place] [address] [place] [address] Phone Care Team Providers Care Town Clerk Name Role Phone Mars Tellez MD Primary Care Provider [phone] Allergies No known active allergies Medications aspirin [...] Only [facility], [address] [facility] [place] [address] Derrick Howe MA from Last 3 Months Social History [...] Encounter [facility], [address] [facility] [place] [phone] Terrence Gresham MD [address] [place] [address] [place] [phone] Health Maintenance Due Date Last Done Comments [...] Sigmoidoscopy 2019 Influenza Vaccine (#1) 2024 Insurance [facility] INSURANCE ([id number]) Care Teams Town Clerk Relationship Specialty Start Date End Date Mars Tellez MD [address] [place] [address] PCP - General 04/26/19
== END 2024-08-26 16:05 | disposition home or self-care (01) ==
PROVIDERS: PCP Family Medicine; Visit Provider Physician Assistant
DX: E11.65 Type 2 diabetes mellitus with hyperglycemia (principal); E78.5 Hyperlipidemia, unspecified; I10 Essential (primary) hypertension

== ENCOUNTER → 2024-08-26 15:33 | Outpatient (BNVA) | payer OTHER, SELFPAY | PROVIDERS: PCP Family Medicine; Visit Provider Physician Assistant | DX: E11.65 Type 2 diabetes mellitus with hyperglycemia (principal); E78.5 Hyperlipidemia, unspecified; I10 Essential (primary) hypertension; Z79.4 Long term (current) use of insulin; Z79.84 Long term (current) use of oral hypoglycemic drugs; Z79.899 Other long term (current) drug therapy | CPT/HCPCS: 82947 ==

== ENCOUNTER 2024-09-01 12:39 | Outpatient (REF) | payer OTHER, SELFPAY ==
--- NOTE | ~2024-09-01 | US_ITS ---
EXAMINATION: US VENOUS ULTRASOUND WITH DOPPLER LOWER EXTREMITY, BILATERAL CLINICAL INFORMATION: Varicose veins of right lower extremity without inflammation. History of DVT in right popliteal vein 16 years ago. COMPARISON: None available. TECHNIQUE: Ultrasound of the superficial veins is performed in the bilateral lower extremities from the hip to the calf with compression sonography and color and pulse Doppler assessment. Spectral analysis with color-flow imaging is performed. FINDINGS: RIGHT SIDE: GREATER SAPHENOUS VEIN: The right saphenofemoral junction diameter is 0.8 cm. There is no reflux. The right proximal thigh diameter is 0.3 cm. There is no reflux. The right mid thigh diameter is 0.4 cm. There is no reflux. The right above-knee diameter is 0.5 cm. There is no reflux. The right at-knee diameter is 0.4 cm. There is no reflux. The right below-knee diameter is 0.5 cm. There is no reflux. The right mid calf diameter is 0.3 cm. There is no reflux. The right ankle diameter is 0.4 cm. There is no reflux. LATERAL ACCESSORY GREATER SAPHENOUS VEIN: The right saphenofemoral junction diameter is 0.3 cm. There is no reflux. The right mid thigh diameter is 0.4 cm. There is no reflux. LESSER SAPHENOUS VEIN: The right saphenopopliteal junction diameter is 0.3 cm. There is no reflux. The right mid calf diameter is 0.3 cm. There is no reflux. The right distal calf diameter is 0.3 cm. There is no reflux. The right vein of Giacomini diameter is 0.3 cm. There is no reflux. SAPHENOUS PERFORATORS: At superficial saphenous vein mid aspect measures 0.2 cm. There is no reflux. At greater saphenous vein at the mid thigh measures 0.3 cm. There is no reflux. At greater saphenous vein at the mid thigh measures 0.2 cm. There is no reflux. At greater saphenous vein at the proximal calf measures 0.2 cm. There is no reflux. At greater saphenous vein mid calf measures 0.3 cm. There is no reflux. At greater saphenous vein distal calf measures 0.2 cm. There is no reflux. VARICOSITIES: At greater saphenous vein mid calf measures 0.3 cm. There is no reflux. At greater saphenous vein distal calf measures 0.3 cm. There is no reflux. LEFT SIDE: GREATER SAPHENOUS VEIN: The left saphenofemoral junction diameter is 0.7 cm. There is no reflux. The left proximal thigh diameter is 0.4 cm. There is no reflux. The left mid thigh diameter is 0.5 cm. There is no reflux. The left above-knee diameter is 0.3 cm. There is no reflux. The left at-knee diameter is 0.3 cm. There is no reflux. The left below-knee diameter is 0.3 cm. There is no reflux. The left mid calf diameter is 0.2 cm. There is no reflux. The left ankle diameter is 0.3 cm. There is no reflux. LATERAL ACCESSORY GREATER SAPHENOUS VEIN: The left saphenofemoral junction diameter is 0.2 cm. There is no reflux The left mid thigh is not seen. LESSER SAPHENOUS VEIN: The left saphenopopliteal junction diameter is 0.2 cm. There is no reflux. The left mid calf diameter is 0.2 cm. There is no reflux. The left distal calf diameter is 0.2 cm. There is no reflux. The right vein of Giacomini diameter is 0.2 cm. There is no reflux. SAPHENOUS PERFORATORS: At greater saphenous vein at the mid thigh measures 0.2 cm. There is no reflux. At greater saphenous vein at the proximal calf measures 0.2 cm. There is no reflux. VARICOSITIES: At the greater saphenous vein mid thigh measures 0.4 cm. There is no reflux. At the greater saphenous vein and midcalf measures 0.3 cm. There is no reflux. OTHER: There are sequela of chronic DVT with partial recanalization in the right popliteal vein. There is no acute DVT. In the mid right femoral vein, there is a 1188 ms of reflux. In the right popliteal vein, there is 1432 ms reflux. There is no left lower extremity deep venous reflux. US/US venous duplex LE BI IMPRESSION: 1. Chronic changes of prior DVT with partial recanalization in the right popliteal vein. No acute DVT evident. 2. No hemodynamically significant reflux is seen of the bilateral greater or lesser saphenous veins. 3. Right and left greater saphenous vein varicosities as detailed. No reflux. 4. See the body of the report for details. Electronically signed by: Steve Cross MD 09/01/2024 04:17 PM EDT
--- OUTSIDE RECORDS SUMMARY | 2024-09-01 15:53 | XMS_ITS | Clinical Summary ---
Author Organization [facility] [place], Address [address] [place] [address] [place] [address] Phone Care Team Providers Care Semi Truck Driver Name Role Phone Mars Tellez MD [...] Only [facility] [place], [address] [facility] [place] [address] Derrick Howe MA from Last [...] Encounter [facility] [place], [address] [facility] [place] [phone] Terrence Gresham MD [address] [place] [address] [place] [phone] Health Maintenance Due Date Last Done Comments [...] Sigmoidoscopy 2019 Influenza Vaccine (#1) 2024 Insurance [facility] INSURANCE ([id number]) Care Teams Semi Truck Driver Relationship Specialty Start Date End Date Mars Tellez MD [address] [place] [address] PCP - General 04/26/19
--- OUTSIDE RECORDS SUMMARY | 2024-09-01 15:53 | XMS_ITS | Encounter Summary ---
Author Organization [facility], Address [address] [facility] [place] [address] Phone Care Team Providers Care Latexer Name Role Phone Mars Tellez MD Primary Care Provider Encounter Details Date Type Department Care Team (Late st Contact Info) Description 06/07/2024 Documentation Only [facility] [address] [place] [address] [place], [place] [address] [place] [phone] Social History Tobacco Use Types Packs/Day Years [...] Encounter [facility] [address] [place] [address] Terrence Gresham MD [address] [place] [address] [place] [address] documented as of this encounter Visit Diagnoses Not on filedocumented in this encounter Care Teams Latexer Relationship Specialty Start Date End Date Mars Tellez MD [address] [place] [address] [address] [place], [place] PCP - General 04/26/19 documented as of this encounter
--- OUTSIDE RECORDS SUMMARY | 2024-09-01 15:53 | XMS_ITS | Clinical Summary ---
Author Organization [facility] Address [address] [place] [address] Phone Care Team Providers Care Communication Professor Name Role Phone Ludwin Mathew MD Primary Care Provider [phone] Allergies No known active allergies Medications methocarbamoL (ROBAXIN) 750 mg tablet Take 1 tablet (750 mg total) by mouth 3 (three) times a day if needed for muscle spasms for up to 10 days. 20 tablet 07/13/2024 Active Active Problems No known active problems Encounters Date Type Department Care Team Description 07/12/2024 9:36 PM EST - 07/13/2024 12:58 AM EST Emergency [facility] Emergency [address] [place] [address] Tavon Santos MD Right leg [...] Final Result from Last 3 Months Insurance [facility] Care Teams Communication Professor Relationship Specialty Start Date End Date Ludwin Mathew MD [address] [place] [address] PCP - General Family Medicine 07/12/24
== END 2024-09-01 12:40 | disposition home or self-care (01) ==
LOC: HO.US 12:39
PROVIDERS: PCP Family Medicine; Visit Provider Physician Assistant Surgical
DX: I83.11 Varicose veins of right lower extremity with inflammation (principal)
CPT/HCPCS: 93970

== ENCOUNTER → 2024-09-01 12:40 | Outpatient (BNV) | payer OTHER, SELFPAY | PROVIDERS: PCP Family Medicine; Visit Provider Radiology Diagnostic Radiology | DX: I83.91 Asymptomatic varicose veins of right lower extremity (principal) | CPT/HCPCS: 93970 ==

== ENCOUNTER 2024-12-16 15:29 | Outpatient (AMB) | payer OTHER, SELFPAY ==
[2024-12-16 15:31] VITALS: BP 132/86; PULSE 84; O2SAT 98; BMI 32.4
--- NOTE | 2024-12-16 15:31 | MHC.OFFVIS ---
Vital Signs 12/16/24 15:31 Height 5 ft 1 in Weight 171 lb 8.314 oz BMI 32.4 BP 132/86 Blood Pressure Location Lt brachial Position Sitting Pulse 84 Pulse Source Pulse Oximeter Pulse Oximetry (%) 98 Oxygen Delivery Method Room Air Intake Visit Reasons: T2DM Intake Note: Patient present today for Type 2 Diabetes Mellitus Last Diabetic eye exam: Over 2 years ago Last Podiatry Visit: Doesn't have one Random Glucose: 145 mg/dl HgA1C: 8.2% Gatehouse Attendant Required: No Accompanied by: Self / Same As Patient Allergies No Known Allergies Allergy (Verified 12/16/24 15:37) Medication List - Last Reconciled 12/16/24 by Sammi Turner PA-C aspirin 81 mg PO DAILY atorvastatin 40 mg PO DAILY 30 days betamethasone valerate 0.1% 1 appl topical BID PRN 14 days blood sugar diagnostic (myFairPartnerTouch Verio test strips) As directed blood-glucose meter (myFairPartnerTouch Verio Flex Meter) Test BS As directed, 999 days blood-glucose sensor (Yedda Angie 3 Plus Sensor device) Use daily As directed to monitor glucose cetirizine (Zyrtec) 10 mg PO DAILY diclofenac sodium 1% (Voltaren Arthritis Pain) 2 grams topical QID glipizide ER 10 mg PO BID 30 days glucose (Dex4 Glucose) 16 grams (4 x 4 gram) PO Q15M PRN insulin lispro (Humalog KwikPen (U-100) Insulin) 6 units (0.06 mL) subcut TID lancets Test BS 2 times a day As directed, 90 days lisinopril 5 mg PO DAILY 30 days metformin 500 mg PO BID 90 days ciqvbzqjbqps-Kq-fqdz-minerals tabs PO pantoprazole 40 mg PO DAILY pen needle, diabetic Use 4x a day as directed semaglutide (Ozempic) 2 mg (0.75 mL) subcut QWEEK HPI HPI T2DM: Details: Patient is a 54-year-old female with a significant past medical history of hyperlipidemia, hypertension, type 2 diabetes presenting today for follow-up regarding her diabetes. Endo: Her A1c today is 8.2. She is on insulin glargine 50 units, humalog 6 units TID, metformin 500mg b.i.d, ozempic 2 mg weekly, glipizide 10mg b.i.d. does not tolerate mounjaro does not tolerate trulicity -diarrhea increased doses of metformin caused GI distress did not tolerate glyburide cgm- usage 90%, GMI 8%, glucose variability 33%. Very high 21%, hyperglycemic 32%, in range 47%, 0% hypoglycemia she is on acei and atorvastatin. last lipids wnl. fam hx of t2dm CV: Blood pressure today in the office is 132/86. She is currently on lisinopril 5 mg and atorvastatin 40 mg for cholesterol control. [facility] Medical History Diabetes mellitus type 2 in obese Hyperlipidemia Diabetes type 2, uncontrolled GERD (gastroesophageal reflux disease) Diabetic nephropathy Tension headache Acute low back pain Cervicalgia Surgical History History of ankle surgery Hx of section H/O dilation and curettage History of kidney surgery Family History Father Diabetes Hypertension Mother Hypertension Maternal Grandmother Cancer Social History Housing: House Alcohol intake: never Patient Tobacco Use Status: Never used Tobacco e-Cigarette/Vaping Use: Never Used Second Hand Smoke Exposure: No service: No Current occupational status: employed Current occupational exposures/hazards: No Cognitive needs: No Hearing needs: No Vision needs: No Physical Exam Vital Signs: Last Vital Signs Pulse 84 12/16/24 15:31 BP 132/86 12/16/24 15:31 Pulse Ox 98 12/16/24 15:31 Oxygen Delivery Method Room Air 12/16/24 15:31 BMI result Body Mass Index 32.4 Const Orientation/consciousness: patient oriented x3 HEENT Ears: hearing grossly normal bilaterally Neck Thyroid: Thyroid normal Lymphatic: no lymphadenopathy noted Resp Auscultation: clear to auscultation bilaterally Cardio Rate: regular rate Rhythm: regular rhythm Heart sounds: S1 normal heart sound present and S2 normal heart sound present Skin General skin exam: no rashes or lesions noted Neuro General: patient oriented x3, gait normal and no focal motor deficits Results AMB Hemoglobin A1c AMB Hemoglobin A1c 8.2 % Last Edit by RASTA Adair on 12/16/24 15:50 Results Reviewed Results Reviewed: Laboratory Last Values Glucose (Clinic) 145 mg/dL (60-115) H 12/16/24 15:41 Hgb A1c (Clinic) 8.2 % (4.0-6.0) H 12/16/24 15:43 Laboratory Tests 06/17/24 07/15/24 08/26/24 15:07 15:20 15:42 Glucose (Clinic) 248 H 157 H Hgb A1c (Clinic) 11.4 H Assessment & Plan Assessment & Plan (1) Diabetes type 2, uncontrolled: Code(s): E11.65 - Type 2 diabetes mellitus with hyperglycemia Category: Medical Qualifiers: Glycemic state: with hyperglycemia Qualified Code(s): E11.65 - Type 2 diabetes mellitus with hyperglycemia Plan: switch to toujeo as lantus appears to wear off increase toujeo to 60 units increase humalog 10 units tid continue ozempic continue glipizide f/u 1 month and labs prior (2) Hypertension: Code(s): I10 - Essential (primary) hypertension Category: Medical Qualifiers: Hypertension type: primary hypertension Qualified Code(s): I10 - Essential (primary) hypertension Plan: wnl continue current plan (3) Hyperlipidemia: Code(s): E78.5 - Hyperlipidemia, unspecified Category: Medical Plan: continue current plan lipids and lfts Orders: Orders AMB Hemoglobin A1c Today E11.65 - Type 2 diabetes mellitus with hyperglycemia, Z13.9 - Encounter for screening, unspecified Complete Blood Count Auto Diff Today E11.65 - Type 2 diabetes mellitus with hyperglycemia, E78.5 - Hyperlipidemia, unspecified, I10 - Essential (primary) hypertension Comprehensive [place]. Panel Fast Today E11.65 - Type 2 diabetes mellitus with hyperglycemia, E78.5 - Hyperlipidemia, unspecified, I10 - Essential (primary) hypertension TSH reflex Free T4 Today E11.65 - Type 2 diabetes mellitus with hyperglycemia, E78.5 - Hyperlipidemia, unspecified, I10 - Essential (primary) hypertension Microalbumin, Random (w Creat) Today E11.65 - Type 2 diabetes mellitus with hyperglycemia, E78.5 - Hyperlipidemia, unspecified, I10 - Essential (primary) hypertension Hemoglobin A1c Today E11.65 - Type 2 diabetes mellitus with hyperglycemia, E78.5 - Hyperlipidemia, unspecified, I10 - Essential (primary) hypertension, R73.01 - Impaired fasting glucose Lipid Panel Today E78.5 - Hyperlipidemia, unspecified, I10 - Essential (primary) hypertension Referrals Podiatry Referral E11.65 - Type 2 diabetes mellitus with hyperglycemia, M79.671 - Pain in right foot Medications: New insulin glargine U-300 conc (Toujeo Max U-300 SoloStar) 60 units (0.2 mL) subcut DAILY 18 mL 1RF 90 days Changed From insulin lispro (Humalog KwikPen (U-100) Insulin) 6 units (0.06 mL) subcut TID 15 mL 2RF To insulin lispro (Humalog KwikPen (U-100) Insulin) 10 units (0.1 mL) subcut TID 15 mL 2RF Coding Level of Care Code Est Pt Level 4 (56717) Complex EM visit Add On G2211 Diagnoses Uncontrolled type 2 diabetes mellitus with hyperglycemia E11.65 Glycemic state: with hyperglycemia Primary hypertension I10 Hypertension type: primary hypertension Hyperlipidemia E78.5
--- OUTSIDE RECORDS SUMMARY | 2024-12-16 15:32 | XMS_ITS | Encounter Summary ---
Author Organization [facility], Address [place] [address] Phone Care Team Providers Care Director Of Student Financial Aid Name Role Phone Mars Tellez MD Primary Care Provider [phone] Encounter Details Date Type Department Care Team (Late st Contact Info) Description 09/09/2024 Documentation Only [facility] [address] [place] [phone] [place], [place] [address] [place] [address] Social History Tobacco Use Types [...] Encounters Date Type Department Care Team (Late Contact Info) Description 05/22/2025 4:00 PM EST Office Visit [facility] [address] [place] [phone] Terrence Gresham MD [address] [place] [address] [place] [phone] documented as of this encounter Visit Diagnoses Not on filedocumented in this encounter Care Teams Director Of Student Financial Aid Relationship Specialty Start Date End Date Mars Tellez MD [address] [place] [address] [id number] [place], [place] PCP - General 04/26/19 documented as of this encounter
[2024-12-16 15:45] LABS: Glucose, Whole Blood 145 mg/dL (60-115)
== END 2024-12-16 16:04 | disposition home or self-care (01) ==
LOC: HO.ENCR 15:30
PROVIDERS: PCP Family Medicine; Visit Provider Physician Assistant
DX: E11.65 Type 2 diabetes mellitus with hyperglycemia (principal); I10 Essential (primary) hypertension; E78.5 Hyperlipidemia, unspecified; Z13.9 Encounter for screening, unspecified

== ENCOUNTER → 2024-12-16 15:29 | Outpatient (BNVA) | payer OTHER, SELFPAY | PROVIDERS: PCP Family Medicine; Visit Provider Physician Assistant | DX: E11.65 Type 2 diabetes mellitus with hyperglycemia (principal); E78.5 Hyperlipidemia, unspecified; I10 Essential (primary) hypertension | CPT/HCPCS: 82947; 83036 ==

== ENCOUNTER 2024-12-27 09:04 | Outpatient (REF) | payer OTHER, SELFPAY ==
--- OUTSIDE RECORDS SUMMARY | 2024-12-27 09:25 | XMS_ITS | Encounter Summary ---
Author Organization [facility], [place] [address] Phone Care Team Providers Care Machine Dyer Name Role Phone Mars Tellez MD Primary Care Provider Encounter Details Date Type Department Care Team (Late st Contact Info) Description 09/09/2024 Documentation Only [facility] [address] [place] [phone] [place], [place] [address] [place] [address] Social History Tobacco Use Types [...] Visit [facility] [address] [place] [phone] Terrence Gresham MD [address] [place] [address] [place] [address] documented as of this encounter Visit Diagnoses Not on filedocumented in this encounter Care Teams Machine Dyer Relationship Specialty Start Date End Date Mars Tellez MD [address] [place] [address] [address] [place], [place] PCP - General 04/26/19 documented as of this encounter
--- OUTSIDE RECORDS SUMMARY | 2024-12-27 09:25 | XMS_ITS | Encounter Summary ---
Author Organization [facility] Address [address] [place] [address] Care Team Providers Care Steamblaster Name Role Phone Ludwin Mathew MD Primary Care Provider [phone] Encounter Details Date Type Department Care Team (Late st Contact Info) Description 09/09/2024 Lab Requisition [facility] Lab [address] [facility] [place] [phone] Vinod Serrano MD [address] [place] [phone] Urinary tract infection, site not specified; Calculus of kidney Social History Tobacco Use Types Packs/Day Years Used Date Smoking Tobacco: Never Assessed Comments Unknown Sex and Gender Information Value Date Recorded Sex Assigned at Female 07/12/2024 10:15 PM EST Legal Sex Female 5:59 PM EST Gender Identity Female 07/12/2024 10:15 PM EST Sexual Orientation Straight 07/12/2024 10 :15 PM EST documented as of this encounter Plan of Treatment Not on file documented as of this encounter Procedures Procedure Name Priority Date/Time Associated Diagnosis Comments CULTURE URINE Routine 09/09/2024 3:40 PM EDT Urinary tract infection, site not specified Calculus of kidney documented in this encounter Results * Culture urine (09/09/2024 3:40 PM EDT) Culture, Urine 10,000-49,000 CFU/mL Mixed urogenital aneta, no uropathogens present. Suggest repeat specimen if clinically indicated. 09/11/2024 11:28 AM EDT [facility] Urine Urine specimen obtained by clean catch procedure / Unknown 09/09/2024 3:40 PM EDT 09/09/2024 6:57 PM EDT us Vinod Serrano MD LAB MICROBIOLOGY - GENERAL ORD ERABLES Final Result [facility] [address] [place] [address], documented in this encounter Visit Diagnoses Diagnosis Urinary tract infection, site not specified Calculus of kidney documented in this encounter Care Teams Steamblaster Relationship Specialty Start Date End Date Ludwin Mathew MD [address] [place] [address] PCP - General Family Medicine 07/12/24 documented as of this encounter
[2024-12-27 11:12] LABS: MANUAL DIFF FLAG NO
[2024-12-27 11:21] LABS: Hematocrit 39.5 % (37.0-47.0); Hemoglobin 13.2 g/dl (12.0-16.0); Imm Gran Abs Auto 0.02 X10*3/uL (0.00-0.03); Imm Gran Pct Auto 0.3 % (0.0-0.4); Lymphocytes Absolute Auto 3.0 X10*3/uL (1.2-4.9); Mean Corpuscular HGB Conc 33.4 g/dl (31.0-35.0); Mean Corpuscular Hemoglobin 29.3 pg (27.0-33.0); Mean Corpuscular Volume 87.8 fL (80.0-98.0); NRBC Abs Auto 0.000 X10*3/uL (0.0-0.012); NRBC Pct Auto 0.0 /100WBC (0.0-0.2); Platelet Count 277 X10*3/uL (160-400); Red Blood Count 4.50 X10*6/uL (4.20-5.50); White Blood Count 7.4 X10*3/uL (4.8-10.8)
[2024-12-27 11:43] LABS: Hemoglobin A1C 227.8704 umol/L; Total Hemoglobin (HGBA1C) 3448.7298 umol/L
[2024-12-27 11:50] LABS: Microalbum/Creatinine Ratio Ur 104.0 ug/mg cr (<30)
[2024-12-27 11:52] LABS: Alanine Aminotransferase 24 U/L (0-31); Albumin Level 4.4 g/dL (3.5-5.0); Alkaline Phosphatase 72 U/L (39-117); Anion Gap 12 (12-20); Aspartate Amino Transferase 23 U/L (5-31); Blood Urea Nitrogen 11 mg/dL (9-16); Calcium 8.8 mg/dL (8.4-10.2); Carbon Dioxide 25 mmol/L (22-29); Chloride 107 mmol/L (96-108); Cholesterol 152 mg/dL (<200); Estimated Glomerular Filt Rate > 60; HDL Cholesterol 45 mg/dL (>40); Potassium 4.2 mmol/L (3.3-5.1); Sodium 140 mmol/L (135-145); Total Protein 7.3 g/dL (6.5-8.0); Triglycerides 128 mg/dL (<150)
== END 2024-12-27 09:05 | disposition home or self-care (01) ==
LOC: HO.HMGCLDS 09:04
PROVIDERS: Visit Provider Physician Assistant
DX: I10 Essential (primary) hypertension (principal); E78.5 Hyperlipidemia, unspecified; E11.65 Type 2 diabetes mellitus with hyperglycemia
CPT/HCPCS: 36415; 80053; 80061; 82043; 82570; 83036; 84443; 85025

== ENCOUNTER 2025-03-17 15:43 | Outpatient (AMB) | payer OTHER, SELFPAY ==
--- NOTE | 2025-03-17 15:45 | A.OFFPC_ITS ---
Vital Signs 03/17/25 15:48 Height 5 ft 1 in Weight 169 lb 4 oz BMI 32.0 BP 132/72 Blood Pressure Location Lt brachial Position Sitting Respiration 12 Pulse 68 Pulse Source Pulse Oximeter Temp 97.1 F Temp Source Oral Pulse Oximetry (%) 99 Oxygen Delivery Method Room Air Intake Visit Reasons: cpe Intake Note: CPE. Director Of Compensation Required: No Allergies No Known Allergies Allergy (Verified 03/17/25 15:46) Medication List - Last Reconciled 03/17/25 by Ludwin Mathew MD aspirin 81 mg PO DAILY atorvastatin 40 mg PO DAILY 30 days betamethasone valerate 0.1% 1 appl topical BID PRN 14 days blood sugar diagnostic (PicmonicTouch Verio test strips) As directed blood-glucose meter ([employer] Verio Flex Meter) Test BS As directed, 999 days blood-glucose sensor (i[employer]yle Angie 3 Plus Sensor device) Use daily As directed to monitor glucose cetirizine (Zyrtec) 10 mg PO DAILY diclofenac sodium 1% (Voltaren Arthritis Pain) 2 grams topical QID glipizide ER 10 mg PO BID 30 days glucose (Dex4 Glucose) 16 grams (4 x 4 gram) PO Q15M PRN insulin glargine U-300 conc (Toujeo Max U-300 SoloStar) 60 units (0.2 mL) subcut DAILY 90 days insulin lispro (Humalog KwikPen (U-100) Insulin) 10 units (0.1 mL) subcut TID lancets Test BS 2 times a day As directed, 90 days lisinopril 5 mg PO DAILY 30 days metformin 500 mg PO BID 90 days sfduhbxjwyom-Tf-spwt-minerals tabs PO pantoprazole 40 mg PO DAILY pen needle, diabetic Use 4x a day as directed semaglutide (Ozempic) 2 mg (0.75 mL) subcut QWEEK Tobacco use date assessed: 03/17/25 Dental Screening Dental Screen Date: 03/17/25 Did you have a dental visit in the last 12 months?: Yes Did you have a dental problem in the last 6 months where you did not have access to dental care?: No Was dental information given to patient?: Patient has dentist HPI cpe HPI Details 54 y/o female presents for a CPE with f/ u labs and health maintenance. Labs drawn 12/27/24. Reviewed labs with pt. A1c 8.2%. Triglycerides 128. TC 152. LDL 82. HDL 45. Has complaints of some lower extremity pain. Does have an abnormal gait. Has complaints of a lump in her armpit. A1c today 8.3%. Patient is taking her Humalog but is not taking any long-acting medication. She was given a script for Toujeo but she says she still had Lantus in wanted to use that. When she took the Lantus, she had a low blood sugar at night and discontinued it altogether. HPI Comments History of Present Illness Details Documentation assistance for Ludwin Mathew MD, was provided by Cj Rosas,? Manager Motor on 03/17/2025 at 4:01 PM EST. I, Dr. Mathew, have read, observed, and verified documentation. [facility] Medical History (Updated 03/17/25 @ 16:47 by jC Rosas) Diabetes mellitus type 2 in obese Hyperlipidemia Diabetes type 2, uncontrolled GERD (gastroesophageal reflux disease) Diabetic nephropathy Tension headache Acute low back pain Cervicalgia Surgical History History of ankle surgery Hx of section H/O dilation and curettage History of kidney surgery Family History Father Diabetes Hypertension Mother Hypertension Maternal Grandmother Cancer Social History Housing: House Alcohol intake: never Patient Tobacco Use Status: Never used Tobacco e-Cigarette/Vaping Use: Never Used Second Hand Smoke Exposure: No service: No Current occupational status: employed Current occupational exposures/hazards: No Cognitive needs: No Hearing needs: No Vision needs: No Questionnaire Thrive Questionnaire Date Thrive assessed: 07/18/24 I am a: Patient What is your living situation today?: I have a steady place to live Within the past 12 months, did the food you bought not last and you didn't have the money to get more?: Never true Within the past 12 months, did you worry whether your food would run out before you got money to buy more?: Never true Do you have trouble paying for medicines?: No Do you have trouble getting transportation to medical appointments?: No Do you have trouble paying your heating and electricity bill?: No Do you have trouble taking care of your child, family member or friend?: No Do you have trouble with day-to-day activities such as bathing, preparing meals, shopping, managing finances, etc.?: No Are you currently unemployed and looking for a job?: No Are you interested in more education?: No Please select the resources that you would like help with: None Currently or been in a relationship where the following occur: No concerns reported THRIVE Score: 0 AUDIT C Alcohol Use Questionnaire (AUDIT-C) 3. How often do you have six or more drinks on one occasion?: Never Total Score: 0 HOLDEN-7 AMB Questionnaire HOLDEN-7 Date HOLDEN - 7 assessed: 03/14/24 Source: Developed by Drs. Jerrell Warren, Radha Brantley, Stanley Boone and colleagues, with an educational donny from [employer]. Review of Systems Const Denies chills, Denies fatigue, Denies fever(s), Denies headache(s) and Denies weakness Eyes Denies change in vision ENT Denies dizziness, Denies headache(s), Denies hearing loss, Denies nasal congestion, Denies sinus pain, Denies sinus pressure and Denies sore throat Card Denies chest pain, Denies lightheadedness, Denies dyspnea and Denies other (palp itations) Resp Denies cough, Denies dyspnea and Denies wheezing GI Denies abdominal pain, Denies melena, Denies hematochezia, Denies change in bowel habits, Denies dyspepsia and Denies nausea Denies hematuria and Denies dysuria Musc Denies abnormal gait, Denies myalgias, Denies arthralgias, Denies numbness and Denies tingling Skin/Breast Denies rash, Denies unusual bruising and Denies wounds Neuro Denies abnormal gait, Denies dizziness, Denies headache(s), Denies memory loss, Denies numbness, Denies Sensory deficit (Neuro), Denies tingling and Denies weakness Psych Denies anxiety, Denies depression and Denies memory loss Endo Denies cold intolerance, Denies fatigue, Denies heat intolerance, Denies polydipsia and Denies polyuria Adeel/Lymph Denies easy bleeding and Denies easy bruising Aller/Immun Denies wheezing Physical exam (Primary Care) Vital Signs: Last Vital Signs Temp 97.1 F 03/17/25 15:48 Pulse 68 03/17/25 15:48 Resp 12 03/17/25 15:48 BP 132/72 03/17/25 15:48 Pulse Ox 99 03/17/25 15:48 Oxygen Delivery Method Room Air 03/17/25 15:48 BMI result Body Mass Index 32.0 Tobacco/Smoking Status: Tobacco use Status Tobacco use date assessed 03/17/25 03/17/25 15:50 Patient Tobacco Use Status Never used Tobacco 03/17/25 15:50 e-Cigarette/Vaping Use Never Used 03/17/25 15:50 Thrive Assessment: Date of Thrive Assessment Date Thrive assessed 07/18/24 03/17/25 15:50 Currently or been in a relationship where the following occur: No concerns reported Const General: no acute distress, well developed, alert and awake Nutritional Appearance: well nourished Orientation/consciousness: patient oriented x3 HENMT Head: Yes normocephalic and Yes atraumatic Ears: hearing grossly normal bilaterally and TM's normal bilaterally General nose exam: Normal external nose present and Normal nares present Mouth: Normal oral and palatal mucosa present and moist mucous membranes Teeth and gingiva: dentition normal Throat: Yes posterior oropharynx normal Eyes General: appearance normal, both eyes and all related structures Pupils: Equal, round and reactive pupils present and Pupil accommodation reflex normal EOM: EOMs intact bilaterally Neck Neck: Yes normal visual inspection, Yes no lymphadenopathy and Yes trachea midline Thyroid: Thyroid normal Carotids: no bruits Lymphatic: no lymphadenopathy noted Chest Chest palpation & inspection: normal inspection of the chest Resp Effort & Inspection: normal respiratory effort Auscultation: clear to auscultation bilaterally Cardio Rate: regular rate Rhythm: regular rhythm Heart sounds: S1 normal heart sound present, S2 normal heart sound present, no gallops, no murmurs and no rubs Bruits: no abdominal aortic bruits and no carotid bruits GI Palpation (GI): No Abdominal aortic bruit present, Soft to palpation, nontender, No hepatosplenomegaly present and No Rebound tenderness present Auscultation: normal bowel sounds General: Yes no CVA tenderness Back/Spine/Pelvis Back: no CVA tenderness Cervical Spine: cervical ROM normal and No Cervical spine tenderness Thoracic/Lumbar Spine: thoraco-lumbar ROM normal, No pain with thoraco-lumbar ROM, No thoracic spinal tenderness and No lumbar spinal tenderness Skin Lesions: no lesions Rashes: no rashes Trauma: no lacerations or abrasions Wounds: no wounds Nails: normal Neuro General: patient oriented x3 and No gait normal Cranial nerves: Yes Equal, round and reactive pupils present Cognition (Neuro): normal cognition Gait exam (Neuro): gait abnormal Motor exam (neuro): 5/5 motor strength present throughout Sensory Exam: No Sensory deficit (Neuro) Deep tendon reflexes (DTR's): Right patellar reflex intensity grade: 2+ and Left patellar reflex intensity grade: 2+ Extrem General: Yes normal to inspection and No edema Psych Appearance: grossly normal Affect: normal affect Attitude: cooperative Thought process: Normal thought process present Results AMB Hemoglobin A1c AMB Hemoglobin A1c 8.3 % Last Edit by Minyd Cortes MA on 03/17/25 16:19 Coding Level of Care Code Est Pt Level 3 (15058) Est Pt Prev Care 40-64y(42338) Diagnoses Adult general medical exam Z00.00 Primary hypertension I10 Hypertension type: primary hypertension Breast cancer screening by mammogram Z12.31 Uncontrolled type 2 diabetes mellitus with hyperglycemia E11.65 Glycemic state: with hyperglycemia Screening for cervical cancer Z12.4 Lower extremity pain M79.606 Abnormal gait R26.9 Screening for colon cancer Z12.11 Diabetic nephropathy associated with type 2 diabetes mellitus E11.21 Diabetes mellitus type: type 2 Left axillary hidradenitis L73.2 Assessment & Plan Assessment & Plan (1) Adult general medical exam: Code(s): Z00.00 - Encounter for general adult medical examination without abnormal findings Category: Medical Plan: 54-year-old female presents for complete physical exam Encouraged healthy diet with active lifestyle (2) Hypertension: Code(s): I10 - Essential (primary) hypertension Category: Medical Qualifiers: Hypertension type: primary hypertension Qualified Code(s): I10 - Essential (primary) hypertension Plan: Blood pressure is controlled. Goal is less than 140/90 (3) Breast cancer screening by mammogram: Code(s): Z12.31 - Encounter for screening mammogram for malignant neoplasm of breast Category: Medical Plan: Due for mammogram in June (4) Diabetes type 2, uncontrolled: Code(s): E11.65 - Type 2 diabetes mellitus with hyperglycemia Category: Medical Qualifiers: Glycemic state: with hyperglycemia Qualified Code(s): E11.65 - Type 2 diabetes mellitus with hyperglycemia (5) Screening for cervical cancer: Code(s): Z12.4 - Encounter for screening for malignant neoplasm of cervix Category: Medical Plan: Patient does not have a kelly machine operator currently Referred (6) Lower extremity pain: Code(s): M79.606 - Pain in leg, unspecified Category: Medical (7) Abnormal gait: Code(s): R26.9 - Unspecified abnormalities of gait and mobility Category: Medical (8) Screening for colon cancer: Code(s): Z12.11 - Encounter for screening for malignant neoplasm of colon Category: Medical Plan: Last colonoscopy was 2021 and recommended follow-up in 5 years Up-to-date, follow-up in 2026 (9) Diabetic nephropathy: Code(s): E11.21 - Type 2 diabetes mellitus with diabetic nephropathy Category: Medical Qualifiers: Diabetes mellitus type: type 2 Qualified Code(s): E11.21 - Type 2 diabetes mellitus with diabetic nephropathy (10) Left axillary hidradenitis: Code(s): L73.2 - Hidradenitis suppurativa Category: Medical Plan: Left axillary hidradenitis Is already appears to be resolving Warm compresses Can use Hibiclens Advised she shave less close She will let me know if worsens or not resolving. Plan Patient is taking her Humalog but is not taking any long-acting medication. She was given a script for Toujeo but she says she still had Lantus in wanted to use that. When she took the Lantus, she had a low blood sugar at night and disc ontinued it altogether. A1c is 8.3% today. At last visit with Endocrine it was 8.2%. Went over how Humalog and Lantus work. She will continue taking Humalog as prescribed. She will take the Lantus she still has left over as 10 units daily which she can take in the morning. She can increase Lantus by 2 units as long as her morning blood sugars are above 150. She has an upcoming appointment with endocrinology Orders: Orders MM tomosynthesis screening BI Today Z12.31 - Encounter for screening mammogram for malignant neoplasm of breast AMB Hemoglobin A1c Today E11.21 - Type 2 diabetes mellitus with diabetic nephropathy, Z13.9 - Encounter for screening, unspecified Referrals SEATING CAPTAIN Referral Z12.4 - Encounter for screening for malignant neoplasm of cervix
[2025-03-17 15:48] VITALS: BP 132/72; PULSE 68; RESP 12; TEMP 36.2; O2SAT 99; BMI 32.0
--- OUTSIDE RECORDS SUMMARY | 2025-03-17 16:05 | XMS_ITS | Encounter Summary ---
Author Organization [facility], [place] [address] [place] [address] Phone Care Team Providers Care Communications Media Professor Name Role Phone Mars Tellez MD Primary Care Provider Encounter Details Date Type Department Care Team (Late st Contact Info) Description 06/07/2024 Documentation Only [facility] [address] [place] [phone] Derrick HoweYULAN, [place] [address] [place] [phone] Social History Tobacco Use Types Packs/Day Years [...] Visit [facility] [address] [place] [phone] Terrence Gresham MD [address] [place] [address] [place] [phone] documented as of this encounter Visit Diagnoses Not on filedocumented in this encounter Care Teams Communications Media Professor Relationship Specialty Start Date End Date Mars Tellez MD [address] [place] [address] [address] [place], [place] PCP - General 04/26/19 documented as of this encounter
--- OUTSIDE RECORDS SUMMARY | 2025-03-17 16:05 | XMS_ITS | Clinical Summary ---
Author Organization [facility], Address [address] [place] [address] [place] [address] Phone Care Team Providers Care Treatment Counselor Name Role Phone Mars Tellez MD Primary [...] 01/02/2020 History of calculus of kidney 01/02/2020 Social History Tobacco Use Types Packs/Day Years [...] Care Team (Late st Contact Info) Description 05/22/2025 4:00 PM EST Office Visit [facility], [address] [facility] [place] [address] Terrence Gresham MD [address] [facility] [place] [phone] Health Maintenance Due Date Last Done Comments Breast Cancer Screening 1970 Hepatitis B Vaccine (1 of 3 - 19+ 3-dose series) 06/23 Pneumococcal Vaccine: 50+ Years (1 of 2 - PCV) 990 Colorectal Cancer Screening: Annual FOBT 2019 Colorectal Cancer Screening: Colonoscopy 2019 Colorectal Cancer Screening: Sigmoidoscopy 2019 Influenza Vaccine (#1) 2025 Insurance [facility] Insurance ([id number]) Care Teams Treatment Counselor Relationship Specialty Start Date End Date Mars Tellez MD [address] [place] [address] [address] [place], [place] PCP - General 04/26/19
--- OUTSIDE RECORDS SUMMARY | 2025-03-17 16:05 | XMS_ITS | Encounter Summary ---
Author Organization [facility], [place] [address] Phone Care Team Providers Care Fresh Food Manager Name Role Phone Mars Tellez MD Primary Care Provider Encounter Details Date Type Department Care Team (Late st Contact Info) Description 09/09/2024 Documentation Only [facility] [address] [place] [phone] Shereen Vaz[place]OENIX, [place] [address] [place] [address] Social History Tobacco Use Types [...] Visit [facility] [address] [place] [phone] Terrence Gresham MD [address] [place] [address] [place] [phone] documented as of this encounter Visit Diagnoses Not on filedocumented in this encounter Care Teams Fresh Food Manager Relationship Specialty Start Date End Date Mars Tellez MD [address] [place] [address] [address] [place], [place] PCP - General 04/26/19 documented as of this encounter
--- OUTSIDE RECORDS SUMMARY | 2025-03-17 16:05 | XMS_ITS | Encounter Summary ---
Author Organization [employer] Address [address] [place] [address] Care Team Providers Care Plant Quality Manager Name Role Phone Ludwin Mathew MD Primary Care Provider Encounter Details Date Type Department Care Team (Late Contact Info) Description 09/09/2024 Lab Requisition [facility] - Main Lab [address] [facility] [place] [phone] Vinod Serrano MD [address] [facility] [address] [place] [phone] Urinary tract infection, site not specified; Calculus [...] Department Care Team (Late Contact Info) Description 03/22/2025 8:30 AM EDT Consult Orthopedic Surgery - [place] [address] [phone] Vineet العلي DPM [address] [phone] documented as of this encounter Procedures Procedure Name Priority Date/Time Associated Diagnosis Comments CULTURE URINE Routine 09/09/2024 3:40 PM EDT Urinary tract infection, site not specified Calculus of kidney documented in this encounter Results * Culture urine (09/09/2024 3:40 PM EDT) Culture, Urine 10,000-49,000 CFU/mL Mixed urogenital aneta, no uropathogens present. Suggest repeat specimen if clinically indicated. 09/11/2024 11:28 AM EDT [facility] Urine Urine specimen obtained by clean catch procedure / Unknown 09/09/2024 3:40 PM EDT 09/09/2024 6:57 PM EDT Vinod Serrano MD LAB MICROBIOLOGY - GENERAL ORD ERABLES Final Result [facility] [address] [place] [address], documented in this encounter Visit Diagnoses Diagnosis Urinary tract infection, site not specified Calculus of kidney documented in this encounter Care Teams Plant Quality Manager Relationship Specialty Start Date End Date Ludwin Mathew MD PCP - General Family Medicine 07/12/24 documented as of this encounter
--- OUTSIDE RECORDS SUMMARY | 2025-03-17 16:05 | XMS_ITS | Encounter Summary ---
Author Organization [facility], [place] [address] Phone Care Team Providers Care Habilitative Interventionist Name Role Phone Mars Tellez MD Primary Care Provider Encounter Details Date Type Department Care Team (Late st Contact Info) Description 10/06/2024 Documentation Only [facility] [address] [place] [phone] Shereen Vaz[place], [place] [address] [place] [address] Social History Tobacco Use Types [...] Visit [facility] [address] [place] [phone] Terrence Gresham MD [address] [place] [address] [place] [phone] documented as of this encounter Visit Diagnoses Not on filedocumented in this encounter Care Teams Habilitative Interventionist Relationship Specialty Start Date End Date Mars Tellez MD [address] [place] [address] [address] [place], [place] PCP - General 04/26/19 documented as of this encounter
--- OUTSIDE RECORDS SUMMARY | 2025-03-17 16:05 | XMS_ITS | Clinical Summary ---
Author Organization [facility] Address [address] [place] [address] Phone Care Team Providers Care Winder Hand Name Role Phone Ludwin Mathew MD Primary Care Provider [phone] Allergies No known active allergies Medications methocarbamoL (ROBAXIN) 750 mg tablet Take 1 tablet (750 mg total) by mouth 3 (three) times a day if needed for muscle spasms for up to 10 days. 20 tablet 07/13/2024 Active Active Problems No known active problems Social History Tobacco Use Types Packs/Day Years [...] 88 07/13/2024 12:03 AM EST Temperature 36.5 C (97.7 F) 07/13/2024 12:03 AM EST Respiratory Rate 18 07/13/2024 12:0 3 AM EST Oxygen Saturation 98% 07/13/2024 12: 03 AM EST Inhaled Oxygen Concentration - - Weight 78.8 kg (173 lb 11.2 oz) 07/12/2024 6:12 PM EST Height 157.5 cm (5' 2 ) 07/12/2024 6:12 PM EST Body Mass Index 31.77 07/12/2024 6:12 PM EST Plan of Treatment Upcoming Encounters Date Type Department Care Team (Late st Contact Info) Description 03/22/2025 8:30 AM EDT Consult Orthopedic Surgery - [place] [address] [phone] Vineet العلي, DPM [address] [phone] Health Maintenance Due Date Last Done Comments Breast Cancer Screening 1970 Diabetes: Annual GFR (Glomerular Filtration Rate) 1970 Diabetes: Annual Foot Exam 1980 Diabetes: Annual Retina Eye Exam 1980 Hepatitis B Vaccines (1 of 3 - 19+ 3-dose series) 1989 Pneumococcal Vaccine: 50+ Years (1 of 2 - PCV) 1989 Cervical Cancer Screening: Pap Smear 1991 Depression Screening 06/22/2024 Cholesterol Screening (Lipid Panel) 07/13/2024 Colorectal Cancer Screening: Colonoscopy 07/13/2024 HIV Screening 07/13/2024 Hepatitis C Screening 07/13/2024 Hypertension/CHF/CAD Annual BMP Blood Test 07/13/2024 Social Influencers of Health Screening 07/13/2024 Diabetes: Annual Urine Albumin-Creatinine Ratio (uACR) 12/27/2024 Diabetes: Blood Sugar Control Test (HGBA1C) 12/27/2024 COVID-19 Vaccine ( season) 2025 08/31/2021, 12/06/2020, 07/20/2020 Influenza Vaccine (#1) 2025 4, 04/01/2023, 03/24/2022, Additional history exists DTaP,Tdap,and Td Vaccines (2 - Td or Tdap) 08/15/2029 08/15/2019 Zoster Vaccines Completed 11/13/2020, 06/26/2020 HIB Vaccines Aged Out No longer eligi [...] age to complete this topic Meningococcal B Vaccine Aged Out No l onger eligible based on patient's age to complete this topic RSV Immunization Patients Under 20 months Aged Out No longer eligible based on patient's age to complete this topic Varicella Vaccines Aged Out No longer eligible based on patient's age to complete this topic Insurance [facility] Care Teams Winder Hand Relationship Specialty Start Date End Date Ludwin Mathew MD PCP - General Family Medicine 07/12/24
== END 2025-03-17 16:48 | disposition home or self-care (01) ==
LOC: HO.HMCFM 15:44
PROVIDERS: PCP Family Medicine; Visit Provider Family Medicine
DX: Z00.00 Encounter for general adult medical examination without abnormal findings (principal); E11.65 Type 2 diabetes mellitus with hyperglycemia; E11.21 Type 2 diabetes mellitus with diabetic nephropathy; I10 Essential (primary) hypertension; Z12.31 Encounter for screening mammogram for malignant neoplasm of breast; M79.606 Pain in leg, unspecified; R26.9 Unspecified abnormalities of gait and mobility; Z12.11 Encounter for screening for malignant neoplasm of colon; L73.2 Hidradenitis suppurativa

== ENCOUNTER → 2025-03-17 15:43 | Outpatient (BNVA) | payer OTHER, SELFPAY | PROVIDERS: PCP Family Medicine; Visit Provider Family Medicine | DX: Z00.00 Encounter for general adult medical examination without abnormal findings (principal); I10 Essential (primary) hypertension; E11.65 Type 2 diabetes mellitus with hyperglycemia; R26.89 Other abnormalities of gait and mobility; E11.21 Type 2 diabetes mellitus with diabetic nephropathy; L73.2 Hidradenitis suppurativa | CPT/HCPCS: 83036 ==

== ENCOUNTER 2025-04-07 14:59 | Outpatient (AMB) | payer OTHER, SELFPAY ==
[2025-04-07 15:13] VITALS: BP 124/74; PULSE 94; TEMP 36.7; O2SAT 96; BMI 31.7
--- NOTE | 2025-04-07 15:13 | AM.OFFWIN_ITS ---
Intake Vital Signs 04/07/25 15:13 Height 5 ft 1 in Weight 168 lb BMI 31.7 BP 124/74 Blood Pressure Location Lt brachial Position Sitting Pulse 94 Pulse Source Pulse Oximeter Temp 98.1 F Temp Source Oral Pulse Oximetry (%) 96 Oxygen Delivery Method Room Air Intake Visit Reasons: EP Left leg muscle pull Intake Note: pt is here for possible muscle pulled in left leg, on thursday Patient Tobacco Use Status: Never used Tobacco Allergies No Known Allergies Allergy (Verified 04/07/25 15:15) Do you need a note to return to daycare/school/sports/work: Yes HPI EP Left leg muscle pull HPI Details History of Present Illness The patient is a 54 year old female presenting with pain and discomfort in the left leg. Left leg pain: - Developed while walking at a part-time job at [employer] - Initially felt like a pull while wal from one end of the store to the other - Occurred twice, with a few hours' gap between events - Pain is persistent, occurring during a ctivities such as walking, sitting, and sleeping - Symptoms began on a Thursday of the [facility] e week of the visit - Pain is localized to above the knee th igh in back left leg, and increases with bending or pressing Medical History: - Diabetes Mellitus - Deep Vein Thrombosis (DVT) in 2008, po st removal of ankle hardware - History of screws in the ankle Problem List - Left leg pain - Diabetes Mellitus - History of Deep Vein Thrombosis (DVT) Plan - An ultrasound of the left leg has been ordered to rule out Deep Vein Thrombosis given the patient's history - Prescribed a muscle relaxer to be take n at night for symptomatic relief of suspected muscle strain. - Patient advised to take it easy and mi nimize stress on the leg for a few days. Review of Systems - General: No fever no chills - Neurological: No headaches no dizziness - Ear nose throat: No sore throat no hearing difficulty no ear pain - Cardiovascular: No syncope, no chest pain, no palpitations - Gastrointestinal: No nausea vomiting or diarrhea Physical Exam General: No acute distress HEENT: No acute findings Neck: Supple Extremities: Pain in the left leg, above knee posterior thigh with palpation, pain with active flexion of knee, no pain with calf palpation, Pamela sign neg MEMBERSHIP COORDINATOR: Alert awake oriented x3 motor intact Skin: Normal turgor [facility] Medical History Diabetes mellitus type 2 in obese Hyperlipidemia Diabetes type 2, uncontrolled GERD (gastroesophageal reflux disease) Diabetic nephropathy Tension headache Acute low back pain Cervicalgia Surgical History History of ankle surgery Hx of section H/O dilation and curettage History of kidney surgery Family History Father Diabetes Hypertension Mother Hypertension Maternal Grandmother Cancer Social History Housing: House Alcohol intake: never Patient Tobacco Use Status: Never used Tobacco e-Cigarette/Vaping Use: Never Used Second Hand Smoke Exposure: No service: No Current occupational status: employed Current occupational exposures/hazards: No Cognitive needs: No Hearing needs: No Vision needs: No Physical Exam Vital Signs: Last Vital Signs Temp 98.1 F 04/07/25 15:13 Pulse 94 04/07/25 15:13 BP 124/74 04/07/25 15:13 Pulse Ox 96 04/07/25 15:13 Oxygen Delivery Method Room Air 04/07/25 15:13 BMI result Body Mass Index 31.7 Assessment & Plan Assessment & Plan (1) Lower extremity pain: Code(s): M79.606 - Pain in leg, unspecified Qualifiers: Laterality: left Qualified Code(s): M79.605 - Pain in left leg Plan Left leg pain: - Developed while walking at a part-time job at [employer] - Initially felt like a pull while walking from one end of the store to the other - Occurred twice, with a few hours' gap between events - Pain is persistent, occurring during activities such as walking, sitting, and sleeping - Symptoms began on a Thursday of the same week of the visit - Pain is localized to above the knee thigh in back left leg, and increases with bending or pressing Medical History: - Diabetes Mellitus - Deep Vein Thrombosis (DVT) in 2008, post removal of ankle hardware - History of screws in the ankle Problem List - Left leg pain - Diabetes Mellitus - History of Deep Vein Thrombosis (DVT) Plan - An ultrasound of the left leg has been ordered to rule out Deep Vein Thrombosis given the patient's history - Prescribed a muscle relaxer to be taken at night for symptomatic relief of suspected muscle strain. - Patient advised to take it easy and minimize stress on the leg for a few days. Orders: Orders US venous duplex LE LT Today M79.606 - Pain in leg, unspecified Coding Level of Care Code Est Pt Level 4 (58939) Diagnoses Pain of left lower extremity M79.605 Laterality: left
== END 2025-04-07 15:54 | disposition home or self-care (01) ==
PROVIDERS: PCP Family Medicine; Visit Provider Internal Medicine
DX: M79.605 Pain in left leg (principal)

== ENCOUNTER 2025-04-07 16:02 | Outpatient (REF) | payer OTHER, SELFPAY ==
--- NOTE | ~2025-04-07 | US_ITS ---
EXAMINATION: US TRIPLEX LOWER EXTREMITY, LEFT CLINICAL INFORMATION: Left leg pain. COMPARISON: None available. TECHNIQUE: Color-flow triplex imaging with spectral analysis and compression Doppler were performed on the left lower extremity. FINDINGS: Respiratory variation, normal compression and augmented flow are noted throughout the left lower extremity. The visualized common femoral vein, superficial femoral vein, profunda femoral vein, popliteal vein and midcalf peroneal and posterior tibial venous segments show no evidence of deep venous thrombosis. There is no Gorman's cyst. US/US venous duplex LE LT IMPRESSION: No evidence of deep venous thrombosis involving the left lower extremity. Electronically signed by: Steve Cross MD 04/07/2025 04:59 PM EDT
--- OUTSIDE RECORDS SUMMARY | 2025-04-07 18:19 | XMS_ITS | Clinical Summary ---
Author Organization [facility] Address [address] [place] [address] Phone Care Team Providers Care International Guest Coordinator Name Role Phone Ludwin Mathew MD Primary Care Provider [phone]- [phone] Allergies No known active allergies Medications methocarbamoL (ROBAXIN) 750 mg tablet Take 1 tablet (750 mg total) by mouth 3 (three) times a day if needed for muscle spasms for up to 10 days. 20 tablet 5 Active diclofenac (Voltaren Arthritis Pain) 1 % topical gel Apply 4 g topically 2 (two) times a day. 240 g 1 5 05/21/20 25 Active Active Problems No known active problems Encounters Date Type Department Care Team Description 03/22/2025 8:30 AM EDT Consult Orthopedic Surgery [facility] [address] [facility] [address] [place] [address] Vineet العلي, DPM Metatarsalgia of right foot (Primary Dx) from Last 3 Months Social History Tobacco [...] Care Team (Late st Contact Info) Description 05/02/2025 8:30 AM EST Office Visit Orthopedic Surgery - [place] [address] [address] Vineet العلي, DPM [address] [address] Health Maintenance Due Date Last Done Comments Breast Cancer Screening 1970 Colorectal Cancer Screening: Colonoscopy 1970 Diabetes: Annual GFR (Glomerular Filtration Rate) 1970 Diabetes: Annual Foot Exam 1980 Diabetes: Annual Retina Eye Exam 1980 Hepatitis B Vaccines (1 of 3 - 19+ 3-dose series) 1989 Pneumococcal Vaccine: 50+ Years (1 of 2 - PCV) 1989 Cervical Cancer Screening: Pap Smear 1991 Depression Screening 06/22/2024 Cholesterol Screening (Lipid Panel) 07/13/2024 HIV Screening 07/13/2024 Hepatitis C Screening 07/13/2024 Hypertension/CHF/CAD Annual BMP Blood Test 07/13/2024 Social Influencers of Health Screening 07/13/2024 Diabetes: Annual Urine Albumin-Creatinine Ratio (uACR) 12/27/2024 Diabetes: Blood Sugar Control Test (HGBA1C) 12/27/2024 COVID-19 Vaccine ( season) 2025 08/31/2021, 12/06/2020, 07/20/2020 Influenza Vaccine (#1) 2025 , 04/01/2023, 03/24/2022, Additional history exists DTaP,Tdap,and Td Vaccines (2 - Td or Tdap) 08/15/2029 08/15/2019 RSV Immunization Adult Patients (1 - 1-dose 75+ series) 2045 Zoster Vaccines Completed 11/13/2020, 06/26/2020 HIB Vaccines [...] patient's age to complete this topic Insurance [facility] Care Teams International Guest Coordinator Relationship Specialty Start Date End Date Ludwin Mathew MD [address] [place] [address] Dr Lenny [place] PCP - General Family Medicine 07/12/24
--- OUTSIDE RECORDS SUMMARY | 2025-04-07 18:19 | XMS_ITS | Encounter Summary ---
Author Organization [facility] Address [address] [place] [address] Care Team Providers Care Wig Dresser Name Role Phone Ludwin Mathew MD Primary Care Provider Encounter Details Date Type Department Care Team (Late Contact Info) Description 09/09/2024 Lab Requisition [facility] - Main Lab [address] [facility] [place] [phone] Vinod Serrano MD [address] [facility] [address] [place] [phone] Urinary tract infection, site not specified; Calculus [...] Department Care Team (Late Contact Info) Description 05/02/2025 8:30 AM EST Office Visit Orthopedic Surgery - [place] [address] [address] Vineet العلي DPM [address] [address] documented as of this encounter Procedures Procedure Name Priority Date/Time Associated Diagnosis Comments CULTURE URINE Routine 09/09/2024 3:40 PM EDT Urinary tract infection, site not specified Calculus of kidney documented in this encounter Results * Culture urine (09/09/2024 3:40 PM EDT) Culture, Urine 10,000-49,000 CFU/mL Mixed urogenital aneta, no uropathogens present. Suggest repeat specimen if clinically indicated. 09/11/2024 11:28 AM EDT [facility] Urine Urine specimen obtained by clean catch procedure / Unknown 09/09/2024 3:40 PM EDT 09/09/2024 6:57 PM EDT us Vinod Serrano MD LAB MICROBIOLOGY - GENERAL ORD ERABLES Final Result [facility] [address] [place] [address], documented in this encounter Visit Diagnoses Diagnosis Urinary tract infection, site not specified Calculus of kidney documented in this encounter Care Teams Wig Dresser Relationship Specialty Start Date End Date Ludwin Mathew MD [address] [place] [address] Dr Lenny [place] PCP - General Family Medicine 07/12/24 documented as of this encounter
== END 2025-04-07 16:03 | disposition home or self-care (01) ==
LOC: HO.US 16:02
PROVIDERS: PCP Family Medicine; Visit Provider Internal Medicine
DX: M79.605 Pain in left leg (principal)
CPT/HCPCS: 93971

== ENCOUNTER → 2025-04-07 16:06 | Outpatient (BNV) | payer OTHER, SELFPAY | PROVIDERS: PCP Family Medicine; Visit Provider Radiology Diagnostic Radiology | DX: M79.605 Pain in left leg (principal) | CPT/HCPCS: 93971 ==

== ENCOUNTER 2025-06-19 09:34 | Outpatient (AMB) | payer OTHER, SELFPAY ==
[2025-06-19 09:42] VITALS: BP 140/80; PULSE 74; O2SAT 97; BMI 32.4
--- NOTE | 2025-06-19 09:42 | A.OFFVIS_ITS ---
Vital Signs 06/19/25 09:42 Height 5 ft 1 in Weight 171 lb 4.787 oz BMI 32.4 BP 140/80 H Blood Pressure Location Rt brachial Position Sitting Pulse 74 Pulse Source Pulse Oximeter Pulse Oximetry (%) 97 Oxygen Delivery Method Room Air Intake Visit Reasons: dm, labs prior Intake Note: Patient present today for Type 2 Diabetes Mellitus Last Diabetic eye exam: Has upcoming appt for 06/2025 Last Podiatry Visit: Last seen in 03/2025 Random Glucose: 113 mg/dl HgA1C: 8.3% Change Management Specialist Required: No Accompanied by: Self / Same As Patient Allergies No Known Allergies Allergy (Verified 06/19/25 09:47) Medication List - Last Reconciled 06/19/25 by Sammi Turner PA-C aspirin 81 mg PO DAILY atorvastatin 40 mg PO DAILY 30 days blood sugar diagnostic (OneTouch Verio test strips) As directed blood-glucose meter (EmboMedicsTouch Verio Flex Meter) Test BS As directed, 999 days blood-glucose sensor (Oxigene Angie 3 Plus Sensor device) Use daily As directed to monitor glucose cetirizine (Zyrtec) 10 mg PO DAILY cyclobenzaprine 5 mg PO TID PRN 7 days diclofenac sodium 1% (Voltaren Arthritis Pain) 2 grams topical QID glipizide ER 10 mg PO BID 30 days glucose (Dex4 Glucose) 16 grams (4 x 4 gram) PO Q15M PRN insulin glargine (Lantus Solostar U-100 Insulin) 50 units subcut QPM insulin lispro (Humalog KwikPen (U-100) Insulin) 10 units (0.1 mL) subcut TID lancets Test BS 2 times a day As directed, 90 days lisinopril 5 mg PO DAILY 30 days metformin 500 mg PO BID 90 days frvvmbeemmoz-Ce-xxwf-minerals tabs PO pantoprazole 40 mg PO DAILY pen needle, diabetic Use 4x a day as directed polyethylene glycol 3350 (Miralax) 17 grams PO DAILY 14 days semaglutide (Ozempic) 2 mg (0.75 mL) subcut QWEEK HPI HPI dm, labs prior: Details: Patient is a 54-year-old female with a significant past medical history of hyperlipidemia, hypertension, type 2 diabetes presenting today for follow-up regarding her diabetes. Endo: Her A1c today is 8.3. She is on insulin glargine 30 units qam, humalog 10 units TID, metformin 500mg b.i.d, ozempic 2 mg weekly, glipizide 10mg b.i.d. does not tolerate mounjaro- nausea and vomiting at 5 mg does not tolerate trulicity -diarrhea increased doses of metformin caused GI distress did not tolerate glyburide cgm- usage 90%, GMI 7.8%, glucose variability 33%. Very high 12%, hyperglycemic 28%, in range 60%, 0% hypoglycemia she is on acei and atorvastatin. last lipids wnl. fam hx of t2dm CV: Blood pressure today in the office is 140/80. She is currently on lisinopril 5 mg and atorvastatin 40 mg for cholesterol control. Nephro: Following with Dr. Gresham from Nephrology. Just had labs and urine completed at lab [facility] Medical History Diabetes mellitus type 2 in obese Hyperlipidemia Diabetes type 2, uncontrolled GERD (gastroesophageal reflux disease) Diabetic nephropathy Tension headache Acute low back pain Cervicalgia Surgical History History of ankle surgery Hx of section H/O dilation and curettage History of kidney surgery Family History Father Diabetes Hypertension Mother Hypertension Maternal Grandmother Cancer Social History Housing: House Alcohol intake: never Patient Tobacco Use Status: Never used Tobacco e-Cigarette/Vaping Use: Never Used Second Hand Smoke Exposure: No service: No Current occupational status: employed Current occupational exposures/hazards: No Cognitive needs: No Hearing needs: No Vision needs: No Physical Exam Vital Signs: Last Vital Signs Pulse 74 06/19/25 09:42 BP 140/80 H 06/19/25 09:42 Pulse Ox 97 06/19/25 09:42 Oxygen Delivery Method Room Air 06/19/25 09:42 BMI result Body Mass Index 32.4 Const Orientation/consciousness: patient oriented x3 HEENT Ears: hearing grossly normal bilaterally Neck Thyroid: Thyroid normal Lymphatic: no lymphadenopathy noted Resp Auscultation: clear to auscultation bilaterally Cardio Rate: regular rate Rhythm: regular rhythm Heart sounds: S1 normal heart sound present and S2 normal heart sound present Skin General skin exam: no rashes or lesions noted Neuro General: patient oriented x3, gait normal and no focal motor deficits Results AMB Hemoglobin A1c AMB Hemoglobin A1c 8.3 % Last Edit by RASTA Adair on 06/19/25 10:00 Results Reviewed Results Reviewed: Laboratory Last Values Glucose (Clinic) 113 mg/dL (60-115) 06/19/25 09:50 Laboratory Tests 12/16/24 12/27/24 12/27/24 15:43 09:08 09:15 Creatinine 0.63 Estimated GFR > 60 Fasting Glucose 142 H Hgb A1c (Clinic) 8.2 H AST 23 ALT 24 Triglycerides 128 Cholesterol 152 LDL Cholesterol, Calc 82 HDL Cholesterol 45 Urine Creatinine 168.17 Urine Microalbumin 175.0 Microalb/Creat Ratio 104.0 H 03/17/25 16:12 Creatinine Estimated GFR Fasting Glucose Hgb A1c (Clinic) 8.3 H AST ALT Triglycerides Cholesterol LDL Cholesterol, Calc HDL Cholesterol Urine Creatinine Urine Microalbumin Microalb/Creat Ratio Assessment & Plan Assessment & Plan (1) Diabetes type 2, uncontrolled: Code(s): E11.65 - Type 2 diabetes mellitus with hyperglycemia Category: Medical Qualifiers: Glycemic state: with hyperglycemia Qualified Code(s): E11.65 - Type 2 diabetes mellitus with hyperglycemia Plan: increase lantus to 35 units continue humalog 10 units tid continue ozempic d/c glipizide start jardiance 10 mg daily. discussed risks and benefits and adverse effects such as urinary urgency, frequency, utis, yeast infections will check labs in 2-4 weeks after starting jardiance f/u 1 month and labs prior (2) Hypertension: Code(s): I10 - Essential (primary) hypertension Category: Medical Qualifiers: Hypertension type: primary hypertension Qualified Code(s): I10 - Essential (primary) hypertension Plan: wnl continue current plan (3) Microalbuminuria: Code(s): R80.9 - Proteinuria, unspecified Category: Medical Plan: will start jardiance following with nephro Orders: Orders AMB Hemoglobin A1c Today E11.65 - Type 2 diabetes mellitus with hyperglycemia, Z13.9 - Encounter for screening, unspecified Basic Metabolic Panel Today E11.65 - Type 2 diabetes mellitus with hyperglycemia, R80.9 - Proteinuria, unspecified Microalbumin, Random (w Creat) Today E11.65 - Type 2 diabetes mellitus with hyperglycemia, R80.9 - Proteinuria, unspecified Medications: New empagliflozin (Jardiance) 10 mg PO QAM 90 tabs 0RF Changed From insulin glargine (Lantus Solostar U-100 Insulin) 50 units subcut QPM To insulin glargine (Lantus Solostar U-100 Insulin) 35 units subcut QAM Discontinued glipizide ER Discontinued Reason: Doctor's Order 10 mg PO BID 30 days 60 tabs 2RF Coding Level of Care Code Est Pt Level 4 (58733) Add On Problem Visit Only Diagnoses Uncontrolled type 2 diabetes mellitus with hyperglycemia E11.65 Glycemic state: with hyperglycemia Primary hypertension I10 Hypertension type: primary hypertension Microalbuminuria R80.9
[2025-06-19 09:55] LABS: Glucose, Whole Blood 113 mg/dL (60-115)
--- OUTSIDE RECORDS SUMMARY | 2025-06-19 10:12 | XMS_ITS | Clinical Summary ---
Author Organization [facility] Address [address] [place] [address] Phone Care Team Providers Care Snap Shearer Name Role Phone Ludwin Mathew MD Primary Care Provider [phone]- [phone] Allergies No known active allergies Medications methocarbamoL (ROBAXIN) 750 mg tablet Take 1 tablet (750 mg total) by mouth 3 (three) times a day if needed for muscle spasms for up to 10 days. 20 tablet 5 Active diclofenac (Voltaren Arthritis Pain) 1 % topical gel Apply 4 g topically 2 (two) times a day. 240 g 1 5 05/21/20 25 Active Problems No known active problems Encounters Date Type Department Care Team Description 03/22/2025 8:30 AM EDT Consult Orthopedic Surgery [facility] [address] [facility] [address] [place] [phone] Vineet العلي, DPM Metatarsalgia of right foot [...] Orientation Straight 07/12/2024 10 :15 PM EST Last Filed Vital Signs Vital Sign Reading [...] Screening 1970 Colorectal Cancer Screening: Colonoscopy 1970 Hepatitis B Vaccines (1 of 3 - 19+ 3-dose series) 1989 Pneumococcal Vaccine: 50+ Years (1 of 2 - PCV) 1989 Cervical Cancer Screening: Pap Smear 1991 Depression Screening 06/22/2024 Cholesterol Screening (Lipid Panel) 07/13/2024 HIV Screening 07/13/2024 Hepatitis C Screening 07/13/2024 Hypertension/CHF/CAD Annual BMP Blood Test 07/13/2024 Social Influencers of Health Screening 07/13/2024 COVID-19 Vaccine ( - season) 2025 08/31/2021, 12/06/2020, 07/20/2020 Influenza Vaccine [...] patient's age to complete this topic Insurance [facility] Care Teams Snap Shearer Relationship Specialty Start Date End Date Ludwin Mathew MD [address] [place] [address] Dr Lenny [place] PCP - General Family Medicine 07/12/24
--- OUTSIDE RECORDS SUMMARY | 2025-06-19 10:12 | XMS_ITS | Encounter Summary ---
Author Organization [facility] Address [address] [place] [address] Care Team Providers Care Vp Analysis Name Role Phone Ludwin Mathew MD Primary Care Provider [phone]- [phone] Encounter Details Date Type Department Care Team (Late st Contact Info) Description 09/09/2024 Lab Requisition [facility] - Main Lab [address] [facility] [place] [phone] Vinod Serrano MD [address] [place] [address] [place] [phone] Urinary tract infection, site not specified; Calculus [...] if clinically indicated. 09/11/2024 11:28 AM EDT [facility] Urine Urine specimen obtained by clean catch procedure / Unknown 09/09/2024 3:40 PM EDT 09/09/2024 6:57 PM EDT us Vinod Serrano MD LAB MICROBIOLOGY - GENERAL ORD ERABLES Final Result [facility] [address] [place] [address], documented in this encounter Visit Diagnoses Diagnosis Urinary tract infection, site not specified Calculus of kidney documented in this encounter Care Teams Vp Analysis Relationship Specialty Start Date End Date Ludwin Mathew MD [address] [place] [address] Dr Galvez [place] PCP - General Family Medicine 07/12/24 documented as of this encounter
== END 2025-06-19 10:17 | disposition home or self-care (01) ==
LOC: HO.ENCR 09:34
PROVIDERS: PCP Family Medicine; Visit Provider Physician Assistant
DX: E11.65 Type 2 diabetes mellitus with hyperglycemia (principal); I10 Essential (primary) hypertension; R80.9 Proteinuria, unspecified; Z13.9 Encounter for screening, unspecified

== ENCOUNTER → 2025-06-19 09:34 | Outpatient (BNVA) | payer OTHER, SELFPAY | PROVIDERS: PCP Family Medicine; Visit Provider Physician Assistant | DX: E11.65 Type 2 diabetes mellitus with hyperglycemia (principal); I10 Essential (primary) hypertension; R80.9 Proteinuria, unspecified; Z79.85 Long-term (current) use of injectable non-insulin antidiabetic drugs; Z79.4 Long term (current) use of insulin | CPT/HCPCS: 82947; 83036 ==

== ENCOUNTER 2025-06-21 09:27 | Outpatient (AMB) | payer OTHER, SELFPAY ==
--- OUTSIDE RECORDS SUMMARY | 2025-06-19 23:59 | XMS_ITS | Continuity of Care Document ---
Author Organization [facility] Address [address] [place] [address]- Care Team Providers Care Tree Care Foreman Name Role Phone Quincy PEDRAZA, Ludwin Cota Primary Care Physician Encounter 06/12/25 - 06/19/25 [facility] [address], [address] [place] [address]- Attending Physician: Vinod Serrano MD Admitting Physician: Vinod Serrano MD Referring Physician: Vinod Serrano MD Encounter Type: OutPatient One Time Allergies, Adverse Reactions, Alerts No Known Allergies Medications albuterol 0.083% inhalation solution 3 mL = 2.5 mg, Neb, Every 4 hours, PRN Wheezing/Shortness of Breath, or cough, # 25 each, 1 Refills, Maintenance, 09/29/18 12:21:39 PM EDT, [facility]/pharmacy #[id number] Start Date: 09/29/18 Stop Date: 10/19/18 Status: Ordered Medication Dispense Status: Completed Quantity: 25.0 Unit: each Total Allowed Fills: 2 Fills Dispensed: 0 aspirin 81 mg oral tablet 1 tablet = 81 mg, By Mouth, Daily, # 30 tablet, 0 Refills, Maintenance, 06/03/11 12:01:07 PM EST, Tablet Start Date: 06/03/11 Status: Ordered Medication Dispense Status: Completed Quantity: 30.0 Unit: tablet Total Allowed Fills: 1 Fills Dispensed: 0 Cytra-3 334 mg-550 mg-500 mg/5 ml oral liquid 15 mL, By Mouth, 2 times a day, # 2,700 mL, 3 Refills, Maintenance, 11/07/13 1:20:10 PM EDT, [facility], 15 mL By Mouth 2 times a day,x90 days Start Date: 11/07/13 Stop Date: 11/02/14 Status: Ordered Medication Dispense Status: Completed Quantity: 2700.0 Unit: mL Total Allowed Fills: 4 Fills Dispensed: 0 metFORMIN 500 mg oral tablet 1 tablet = 500 mg, By Mouth, Daily before dinner, 0 Refills, Maintenance, 04/21/18 8:22:22 AM EDT Start Date: 04/21/18 Status: Ordered Medication Dispense Status: Completed Total Allowed Fills: 1 Fills Dispensed: 0 Motrin Tablet 600 mg, By Mouth, Every 6 hours, PRN, with food or milk, # 20, Refills 0, Tot. Refills 0, as neededfor pain, 08/10/08 10:28:10 AM EST Start Date: 08/10/08 Status: Ordered Medication Dispense Status: Completed Quantity: 20.0 Unit: Total Allowed Fills: 1 Fills Dispensed: 0 ProAir HFA 90 mcg/inh inhalation aerosol with adapter 2, puffs, Inhalation, 4 times a day, PRN, Refills 0, Maintenance, 07/12/17 4:53:46 PM EST Start Date: 07/12/17 Status: Ordered Medication Dispense Status: Completed Total Allowed Fills: 1 Fills Dispensed: 0 simvastatin 20 mg oral tablet 20 mg, 1, tablet, By Mouth, Daily at bedtime, Refills 0, Maintenance, 04/21/18 8:22:29 AM EDT Start Date: 04/21/18 Status: Ordered Medication Dispense Status: Completed Total Allowed Fills: 1 Fills Dispensed: 0 Zyrtec 10 mg oral tablet 1 tablet = 10 mg, By Mouth, Daily, # 30 tablet, 0 Refills, Maintenance, 06/03/11 12:01:31 PM EST, Tablet Start Date: 06/03/11 Status: Ordered Medication Dispense Status: Completed Quantity: 30.0 Unit: tablet Total Allowed Fills: 1 Fills Dispensed: 0 Problem List Condition Confirmation Course Effective Dates Status Health St atus Informant Kidney stones Confirmed Active Results Radiology Reports * Exam Date Time Procedure Performing Provider Status 06/09/25 8:15 AM US Renal Bladder Auth (V erified) Notes: (US Renal Bladder) Reason For Exam: H/O RT renal calculus RESULT: US Renal Bladder US Renal Bladder Reason: H O RT renal calculus - COMPARISON: Ultrasound 08/20/2018. CT 10/06/2024 Study performed at [facility], [address] [place] [address] FINDINGS: Right kidney: 11.3 cm in length. No hydronephrosis. Cluster of approximately four 0.3 cm echogenic foci in the inferior pole. Mild right pelvicaliectasis versus hydronephrosis Left kidney: 12.4 cm in length. No hydronephrosis. 1 cm echogenic focus in the left renal pelvis/left UPJ. 0.8 cm echogenic focus in the inferior pole. Mild left pelvicaliectasis versus hydronephrosis Urinary bladder: Normal morphology. No stone, mass, wall thickening or debris. Prevoid bladder volume 518 mL. Post void bladder residual 17 mL IMPRESSION: 1 cm echogenic focus in the left kidney may be a stone in the left renal pelvis/left UPJ. Additional smaller bilateral echogenic foci may be renal stones Mild bilateral pelvicaliectasis versus hydronephrosis is similar to previous examinations. There may be an element of left renal obstruction given the 1 cm stone at the left UPJ [place] to and read by Dr. Serrano 1408 hours 06/13/2025 WSN: [id number] Ordering Physician: Vinod Serrano Dictated By: Georges Márquez MD Dictated Date/Time: 06/13/25 2:09 pm Reviewed By: Georges Márquez MD Signed By: Georges Márquez MD Signed Date/Time: 06/13/25 2:09 pm Transcribed By: ENRIQUE Transcribed Date/Time: 06/13/25 2:02 pm Social History Social History Type Response Smoking Status Never smoker; Tobacc o user in household: No entered on: 06/16/15 Sex Sex Representation Female (finding) Patient Care team information Care Team Personnel Name: Benny Karuna Position: S Outreach Member Role: Lifetime Consulting Physician Name: Yanet Hunter RN Position: [facility] RN Member Role: Primary Care Nurse Name: Roro Mcwilliams Position: [facility] Outreach Member Role: Lifetime Consulting Physician Name: Ludwin Mathew MD Position: [facility] Outreach Member Role: PCP Address: [address] [place] [address]- Telecom: Name: Vinod Serrano MD Position: [facility] Physician - Urology Med Service: Urology Member Role: Ordering Physician Address: [address] [facility] [address] [facility], [place] [address]- Telecom: Care Team Related Persons Name: YUDELKA LY Insurance Providers Guarantor name: RISHABH LY JollyDeck Plan Information #: 1 Payer: [facility] PPO Payer Identifier: NA Member Number: [id number] Group Number: [id number] Subscriber Identifier: [id number] Relationship to Subscriber: self Coverage Type: PRIVATE HEALTH INSURANCE Coverage Verification Date: NA Telecom: NA Address:
--- NOTE | 2025-06-21 09:30 | A.OFFPC_ITS ---
Vital Signs 06/21/25 09:33 06/21/25 10:12 Height 5 ft 1 in Weight 171 lb BMI 32.3 BP 97/80 116/74 Blood Pressure Location Rt brachial Rt brachial Position Sitting Sitting Respiration 16 Pulse 80 Pulse Source Pulse Oximeter Temp 97.6 F Temp Source Oral Pulse Oximetry (%) 97 Oxygen Delivery Method Room Air Intake Visit Reasons: f/u diabetes Intake Note: zpatient here for DM follow up Mixing Pan Tender Required: No Is last menstrual period known: No Post menopausal: No Patient : No Allergies No Known Allergies Allergy (Verified 06/21/25 09:32) Medication List - Last Reconciled 06/21/25 by Ludwin Mathew MD aspirin 81 mg PO DAILY atorvastatin 40 mg PO DAILY 30 days blood sugar diagnostic (OneTouch Verio test strips) As directed blood-glucose meter (OneTouch Verio Flex Meter) Test BS As directed, 999 days blood-glucose sensor ([employer] Angie 3 Plus Sensor device) Use daily As directed to monitor glucose cetirizine (Zyrtec) 10 mg PO DAILY diclofenac sodium 1% (Voltaren Arthritis Pain) 2 grams topical QID empagliflozin (Jardiance) 10 mg PO QAM glucose (Dex4 Glucose) 16 grams (4 x 4 gram) PO Q15M PRN insulin glargine (Lantus Solostar U-100 Insulin) 35 units subcut QAM insulin lispro (Humalog KwikPen (U-100) Insulin) 10 units (0.1 mL) subcut TID lancets Test BS 2 times a day As directed, 90 days lisinopril 5 mg PO DAILY 30 days metformin 500 mg PO BID 90 days gxdsucjhlqwp-Ur-iodw-minerals tabs PO pantoprazole 40 mg PO DAILY pen needle, diabetic Use 4x a day as directed polyethylene glycol 3350 (Miralax) 17 grams PO DAILY 14 days semaglutide (Ozempic) 2 mg (0.75 mL) subcut QWEEK Tobacco use date assessed: 06/21/25 Dental Screening Dental Screen Date: 06/21/25 Did you have a dental visit in the last 12 months?: Yes Did you have a dental problem in the last 6 months where you did not have access to dental care?: No Was dental information given to patient?: Patient has dentist HPI f/u diabetes HPI Details 54 y/o female presents to f/u diabetes. Had been following up with endocrinology. They had increased Lantus to 35 units. Continued Humalog 10 units tid, Ozempic. Discontinued glipizide and started her on Jardiance 10mg daily. A1c today 5.4%. She notes she has not started her Jardiance yet. BP today 116/74. COUNTS INCLUDE 234 BEDS AT [facility] Medical History (Updated 06/21/25 @ 10:15 by Cj Rosas) Diabetes mellitus type 2 in obese Hyperlipidemia Diabetes type 2, uncontrolled GERD (gastroesophageal reflux disease) Diabetic nephropathy Tension headache Acute low back pain Cervicalgia Surgical History History of ankle surgery Hx of section H/O dilation and curettage History of kidney surgery Family History Father Diabetes Hypertension Mother Hypertension Maternal Grandmother Cancer Social History Housing: House Alcohol intake: never Patient Tobacco Use Status: Never used Tobacco e-Cigarette/Vaping Use: Never Used Second Hand Smoke Exposure: No Patient : No service: No Current occupational status: employed Current occupational exposures/hazards: No Cognitive needs: No Hearing needs: No Vision needs: No Questionnaire Thrive Questionnaire Date Thrive assessed: 07/18/24 I am a: Patient What is your living situation today?: I have a steady place to live Within the past 12 months, did the food you bought not last and you didn't have the money to get more?: Never true Within the past 12 months, did you worry whether your food would run out before you got money to buy more?: Never true Do you have trouble paying for medicines?: No Do you have trouble getting transportation to medical appointments?: No Do you have trouble paying your heating and electricity bill?: No Do you have trouble taking care of your child, family member or friend?: No Do you have trouble with day-to-day activities such as bathing, preparing meals, shopping, managing finances, etc.?: No Are you currently unemployed and looking for a job?: No Are you interested in more education?: No Currently or been in a relationship where the following occur: No concerns reported THRIVE Score: 0 HOLDEN-7 AMB Questionnaire HOLDEN-7 Date HOLDEN - 7 assessed: 03/14/24 Source: Developed by Drs. Jerrell Warren, Radha Brantley, Stanley Boone and colleagues, with an educational donny from [employer]. Review of Systems Const Denies chills, Denies fatigue, Denies fever(s), Denies headache(s) and Denies weakness ENT Denies dizziness and Denies headache(s) Card Denies chest pain, Denies lightheadedness, Denies dyspnea and Denies other (Palpitations) Resp Denies cough, Denies dyspnea, Denies wheezing and Denies other ( shortness of breath) Musc Denies numbness and Denies tingling Neuro Denies dizziness, Denies headache(s), Denies numbness, Denies tingling, Denies paresthesias and Denies weakness Psych Denies anxiety and Denies depression Endo Denies fatigue Aller/Immun Denies wheezing Physical exam (Primary Care) Vital Signs: Last Vital Signs Temp 97.6 F 06/21/25 09:33 Pulse 80 06/21/25 09:33 Resp 16 06/21/25 09:33 BP 116/74 06/21/25 10:12 Pulse Ox 97 06/21/25 09:33 Oxygen Delivery Method Room Air 06/21/25 09:33 BMI result Body Mass Index 32.3 Tobacco/Smoking Status: Tobacco use Status Tobacco use date assessed 06/21/25 06/21/25 09:36 Patient Tobacco Use Status Never used Tobacco 06/21/25 09:31 e-Cigarette/Vaping Use Never Used 06/21/25 09:31 Thrive Assessment: Date of Thrive Assessment Date Thrive assessed 07/18/24 06/21/25 09:31 Currently or been in a relationship where the following occur: No concerns reported Const General: no acute distress and well developed Nutritional Appearance: well nourished Orientation/consciousness: patient oriented x3 HENMT Head: Yes normocephalic and Yes atraumatic Eyes General: appearance normal, both eyes and all related structures Pupils: Equal, round and reactive pupils present EOM: EOMs intact bilaterally Resp Effort & Inspection: normal respiratory effort Auscultation: clear to auscultation bilaterally Cardio Rate: regular rate Rhythm: regular rhythm Heart sounds: S1 normal heart sound present, S2 normal heart sound present, no gallops, no murmurs and no rubs Neuro General: patient oriented x3 and gait normal Cranial nerves: Yes Equal, round and reactive pupils present Psych Affect: normal affect Results AMB Hemoglobin A1c AMB Hemoglobin A1c 5.4 % Last Edit by Rivera Hirsch on 06/21/25 09:57 Results Reviewed Results Reviewed: Laboratory Last Values Hgb A1c (Clinic) 5.4 % (4.0-6.0) 06/21/25 09:55 Coding Level of Care Code Est Pt Level 3 (25870) Diagnoses Diabetes E11.9 Primary hypertension I10 Hypertension type: primary hypertension Assessment & Plan Assessment & Plan (1) Diabetes: Code(s): E11.9 - Type 2 diabetes mellitus without complications Category: Medical Plan: A1c now 5.4%. No low blood sugars. Good control. Goal is less than 7.0% Continue current medication regimen Follow-up with Endocrine as recommended Continue diabetic diet Patient has eye exam scheduled for June (2) Hypertension: Code(s): I10 - Essential (primary) hypertension Category: Medical Qualifiers: Hypertension type: primary hypertension Qualified Code(s): I10 - Essential (primary) hypertension Plan: Blood pressure is well controlled. Goal is less than 140/90 Continue current medication Orders: Orders AMB Hemoglobin A1c Today E11.65 - Type 2 diabetes mellitus with hyperglycemia Medications: Refilled lisinopril 5 mg PO DAILY 30 tabs 0RF 30 days metformin 500 mg PO BID 180 tabs 3RF 90 days
[2025-06-21 09:33] VITALS: BP 97/80; PULSE 80; RESP 16; TEMP 36.4; O2SAT 97; BMI 32.3
--- OUTSIDE RECORDS SUMMARY | 2025-06-21 09:49 | XMS_ITS | Encounter Summary ---
Author Organization [employer] Address [address] [place] [address] Care Team Providers Care Hydraulic Strainer Operator Name Role Phone Ludwin Mathew MD Primary Care Provider [phone] Encounter Details Date Type Department Care Team (Late st Contact Info) Description 09/09/2024 Lab Requisition [facility] Main Lab [address] [facility] [place] [phone] Vinod Serrano MD [address] [place] [phone] Urinary tract infection, site not specified; Calculus [...] if clinically indicated. 09/11/2024 11:28 AM EDT [facility] Urine Urine specimen obtained by clean catch procedure / Unknown 09/09/2024 3:40 PM EDT 09/09/2024 6:57 PM EDT us Vinod Serrano MD LAB MICROBIOLOGY - GENERAL ORD ERABLES Final Result [facility] [address] [place] [address], documented in this encounter Visit Diagnoses Diagnosis Urinary tract infection, site not specified Calculus of kidney documented in this encounter Care Teams Hydraulic Strainer Operator Relationship Specialty Start Date End Date Ludwin Mathew MD [address] [place] [address] Dr Galvez [place] PCP - General Family Medicine 07/12/24 documented as of this encounter
--- OUTSIDE RECORDS SUMMARY | 2025-06-21 09:49 | XMS_ITS | Clinical Summary ---
Author Organization [facility], Address [address] [place] [address] [place] [address] Phone Care Team Providers Care Manager Talent Acquisition Name Role Phone Ludwin Mathew MD Primary Care Provider Allergies No known active allergies Medications aspirin (ST RALPH) 81 MG EC tablet Take 1 tablet by mouth 1 (one) time each day Active atorvastatin (LIPITOR) 40 MG tablet Take 40 mg by mouth daily 0 Active glipiZIDE (GLUCOTROL) 10 MG tablet TAKE 1 TABLET BY MOUTH 30 MINUTES BEFORE BREAKFAST AND LUNCH 30 DAY(S) 0 Active metFORMIN (GLUCOPHAGE) 500 MG tablet Take 500 mg by mouth in the morning and 500 mg in the evening. Take with meals. 0 Active cetirizine (ZyrTEC) 10 MG tablet Take 1 tablet by mouth 1 (one) time each day Active Semaglutide (OZEMPIC, 2 MG/DOSE, SC) Inject 2 mg under the skin per week Active pantoprazole (PROTONIX) 40 MG EC tablet Take 40 mg by mouth 1 (one) time each day before breakfast Do not crush, chew, or split. Active lisinopril 5 MG tablet Take 5 mg by mouth 1 (one) time each day Active insulin glargine (LANTUS) 100 UNIT/ML injection Inject 60 Units under the skin every night Active insulin lispro protamine-insul in lispro (HumaLOG 50-50) (50-50) 100 UNIT/ML inj pen Inject 10 Units under the skin in the morning and 10 Units at noon and 10 Units in the evening. Inject before meals. Active Active Problems Problem Noted Date Diagnosed Date Hydronephrosis 01/02/2020 Essential hypertension 01/02/2020 History of calculus of kidney 01/02/2020 Encounters Date Type Department Care Team Description 06/01/2025 Telephone [facility] [address] [place] [address] Shereen Vaz MA 05/22/2025 4:00 PM EST Office [facility] [address] [place] [address] Rosangela Reynolds MD History of calculus of kidney (Primary Dx) 05/08/2025 Orders Only [facility] [address] [place] [address] Shereen Vaz MA Hydronephrosis, not otherwise specified (Primary Dx); History of calculus of kidney from Last 3 Months Social History Tobacco [...] Sign Reading Time Taken Comments Blood Pressure 140/50 05/22/2025 4:21 PM EST Pulse - - Temperature - - Respiratory Rate 22 07/13/2017 12:01 PM EST Oxygen Saturation - - Inhaled Oxygen Concentration - - Weight 74.8 kg (165 lb) 05/22/2025 4:21 PM EST Height 157.5 cm (5' 2 ) 12/27/2018 12:00 PM EDT Body Mass Index 30.18 12/27/2018 12:00 PM EDT Plan of Treatment Upcoming Encounters Date Type Department Care Team (Late st Contact Info) Description 12/04/2025 4:00 PM EDT Office Visit [facility] [address] [place] [phone] Rosangela Reynolds MD [address] [place] [address] Health Maintenance Due Date Last Done Comments Breast Cancer Screening 1970 Hepatitis B Vaccine (1 of 3 - 19+ 3-dose series) 06/23 Pneumococcal Vaccine: 50+ Years (1 of 2 - PCV) 990 Colorectal Cancer Screening: Annual FOBT 2019 Colorectal Cancer Screening: Colonoscopy 2019 Colorectal Cancer Screening: Sigmoidoscopy 2019 Influenza Vaccine (#1) 2025 Procedures Procedure Name Priority Date/Time Associated Diagnosis Comments URINE ALBUMIN / CREATININE RATIO Routine 05/29/2025 5:28 PM EST Hydronephrosis, not otherwise specified History of calculus of kidney RENAL FUNCTION PANEL Routine 05/29/2025 5:28 PM EST Hydronephrosis, not otherwise specified History of calculus of kidney CBC AND DIFFERENTIAL Routine 05/29/2025 5:28 PM EST Hydronephrosis, not otherwise specified History of calculus of kidney URINE ALBUMIN / CREATININE RATIO Routine 05/29/2025 5:27 PM EST History of calculus of kidney URINALYSIS WITH MICROSCOPIC Routine 05/29/2025 5:27 PM EST History of calculus of kidney RENAL FUNCTION PANEL Routine 05/29/2025 5:27 PM EST History of calculus of kidney CALCIUM, URINE, RANDOM Routine 05/29/2025 5:27 PM EST History of calculus of kidney MICROSCOPIC EXAMINATION - DO NOT USE Routine 05/29/2025 5:27 PM EST from Last 3 Months Results * (ABNORMAL) Urine Albumin / Creatinine Ratio (05/29/2025 5:28 PM EST) Only the most recent of2 resultswithin the time period is included. Pathologist [facility] Creatinine, Ur 131.7 Not Estab. mg/dL [facility] Albumin, Urine 47.0 Not Estab. ug/mL [facility] Albumin/Creatin ine Ratio 36(H) 0 - 29 mg/g creat [facility] Comment: Normal: 0 - 29 Moderately increased: 30 - 300 Severely increased: >300 Urine Urine specimen obtained by clean catch procedure / Unknown 05/29/2025 5:28 PM EST 05/29/2025 us Terrence Gresham MD LAB URINE ORDERABLES Final Result [facility] [address] [place] [address] * (ABNORMAL) CBC and Differential (05/29/2025 5:28 PM EST) Pathologist [facility] WBC 8.0 3.4 - 10.8 x10E3/uL [facility] RBC 4.60 3.77 - 5.28 x10E6/uL [facility] Hemoglobin 13.5 11.1 - 15.9 g/dL [facility] Hematocrit 42.5 34.0 - 46.6 % [facility] MCV 92 79 - 97 fL [facility] MCH 29.3 26.6 - 33.0 pg [facility] MCHC 31.8 31.5 - 35.7 g/dL [facility] RDW 13.5 11.7 - 15.4 % [facility] Platelets 293 150 - 450 x10E3/uL [facility] Neutrophils Relative 49 Not Estab. % [facility] Lymphocytes Relative 40 Not Estab. % [facility] Monocytes 7 Not Estab. % [facility] Eosinophils Relative 3 Not Estab. % [facility] Basophils Relative 1 Not Estab. % [facility] Neutrophils Absolute 4.0 1.4 - 7.0 x10E3/uL [facility] Lymphocytes Absolute 3.2(H) 0.7 - 3.1 x10E3/uL [facility] Monocytes Absolute 0.5 0.1 - 0.9 x10E3/uL [facility] Eosinophils Absolute 0.2 0.0 - 0.4 x10E3/uL [facility] Basophils Absolute 0.1 0.0 - 0.2 x10E3/uL [facility] Immature Granulocytes 0 Not Estab. % [facility] Immature Grans (Absolute) 0.0 0.0 - 0.1 x10E3/uL [facility] Blood Venous blood / Unknown 05/29/2025 5:28 PM EST 05/29/2025 us Terrence Gresham MD LAB BLOOD ORDERABLES Final Result [facility] [address] [place] [address] * (ABNORMAL) Renal Function Panel (05/29/2025 5:28 PM EST) Only the most recent of2 resultswithin the time period is included. Calcium 9.9 8.7 - 10.2 mg/dL [facility] Glucose 156(H) 70 - 99 mg/dL [facility] BUN 10 6 - 24 mg/dL [facility] Creatinine 0.69 0.57 - 1.00 mg/dL [facility] eGFR CKD-EPI CR 2020 103 >59 mL/min/1.7 3 [facility] BUN/Creatinine Ratio 14 9 - 23 [facility] Sodium 139 134 - 144 mmol/L [facility] Potassium 4.2 3.5 - 5.2 mmol/L [facility] Chloride 99 96 - 106 mmol/L [facility] Bicarbonate (CO2) 29 20 - 29 mmol/L [facility] Phosphorus 3.7 3.0 - 4.3 mg/dL [facility] Albumin 4.5 3.8 - 4.9 g/dL [facility] Blood Venous blood / Unknown 05/29/2025 5:28 PM EST 05/29/2025 us Terrence Gresham MD LAB BLOOD ORDERABLES Final Result [facility] [address], [address] [place] [address] * (ABNORMAL) Microscopic Examination (05/29/2025 5:27 PM EST) WBC, Urine 6-10(A) 0 - 5 /hpf [facility] RBC, Urine None seen 0 - 2 /hpf [facility] Squamous Epithelial, Urine 0-10 0 - 10 /hpf [facility] Casts None seen None seen /lpf [facility] Crystals Present(A) N/A [facility] Crystal Type Calcium Oxalate N/A [facility] Bacteria, Urine Few None seen/Few [facility] 05/29/2025 5:27 PM EST 05/29/2025 Terrence Gresham MD LAB MICROBIOLOGY - GENERAL ORDERABLES Final Result Performing Organization Address City/[facility]/ZIP Co de Phone Number [facility] [address] [place] [address] * Calcium, urine, random (05/29/2025 5:27 PM EST) Pathologist [facility] Calcium, Ur 29.7 Not Estab. mg/dL [facility] Urine Urine specimen obtained by clean catch procedure / Unknown 05/29/2025 5:27 PM EST 05/29/2025 Terrence Gresham MD LAB URINE ORDERABLES Final Result Performing Organization Address City/[facility]/ZIP Co de Phone Number [facility] [address] [place] [address] * (ABNORMAL) Urinalysis with microscopic (05/29/2025 5:27 PM EST) Specific [place], Urine 1.021 1.005 - 1.030 [facility] pH Urine 5.5 5.0 - 7.5 [facility] Color, Urine Yellow Yellow [facility] Appearance Urine Clear Clear [facility] [phone] WBC Esterase Urine 1+(A) Negative [facility] Protein, Ur Trace Negative/Tra ce [facility] Glucose, Ur Negative Negative [facility] Ketones, Urine Negative Negative [facility] Blood Urine Negative Negative [facility] Bilirubin Urine Negative Negative [facility] [phone] Urobilinogen Urine 0.2 0.2 - 1.0 mg/dL [facility] Nitrite, Urine Negative Negative [facility] [phone] Microscopic Examination See below: [facility] Comment:Microscopic was antonella cated and was performed. Urine Urine specimen obtained by clean catch procedure / Unknown 05/29/2025 5:27 PM EST 05/29/2025 us Terrence Gresham MD LAB URINE ORDERABLES Final Result [facility] [address] [place] [address] from Last 3 Months Insurance [facility] Insurance ([id number]) Care Teams Manager Talent Acquisition Relationship Specialty Start Date End Date Ludwin Mathew MD [address] [place] [id number] PCP - General Family Medicine 05/22/25
--- OUTSIDE RECORDS SUMMARY | 2025-06-21 09:49 | XMS_ITS | Clinical Summary ---
Author Organization [facility] Address [address] [place] [address] Phone Care Team Providers Care Plant Pathologist Name Role Phone Ludwin Mathew MD Primary Care Provider [phone] Allergies No known active allergies Medications methocarbamoL (ROBAXIN) 750 mg tablet Take 1 tablet (750 mg total) by mouth 3 (three) times a day if needed for muscle spasms for up to 10 days. 20 tablet 07/13/2024 Active Active Problems No known active problems Encounters Date Type Department Care Team Description 03/22/2025 8:30 AM EDT Consult Orthopedic Surgery [facility] [address] [facility] [address] [place] [address] Vineet العلي, DPM Metatarsalgia of [...] of Health Screening 07/13/2024 COVID-19 Vaccine ( season) 2025 08/31/2021, 12/06/2020, [...] patient's age to complete this topic Insurance [facility] Care Teams Plant Pathologist Relationship Specialty Start Date End Date Ludwin Mathew MD [address] [place] [address] Dr Lenny [place] PCP - General Family Medicine 07/12/24
--- OUTSIDE RECORDS SUMMARY | 2025-06-21 09:49 | XMS_ITS | Encounter Summary ---
Author Organization [facility] Address [address] [place] [address] Phone Care Team Providers Care Electron Gun Assembler Name Role Phone Ludwin Mathew MD Primary Care Provider [phone] Encounter Details Date Type Department Care Team (Late Contact Info) Description 06/01/2025 Telephone [facility] [address] [address] [place], [place] [address] [place] [address] Social History Tobacco Use Types [...] Department Care Team (Late Contact Info) Description 12/04/2025 4:00 PM EDT Office Visit [facility] [address] [place] [address] Rosangela Reynolds MD [address] [place] [address] documented as of this encounter Visit Diagnoses Not on filedocumented in this encounter Care Teams Electron Gun Assembler Relationship Specialty Start Date End Date Ludwin Mathew MD [address] [address] PCP - General Family Medicine 05/22/25 documented as of this encounter
--- OUTSIDE RECORDS SUMMARY | 2025-06-21 09:49 | XMS_ITS | Encounter Summary ---
Author Organization [facility] Address [address] [place] [address] Phone Care Team Providers Care Animation Director Name Role Phone Ludwin Mathew MD Primary Care Provider Encounter Details Date Type Department Care Team (Late st Contact Info) Description 06/07/2024 Documentation Only [facility] [address] [place] [phone] [place], [place] [address] [place] [address] Social History Tobacco Use Types [...] Office Visit [facility] [address] [place] [address] Rosangela Reynolds MD [address] [place] [address] documented as of this encounter Visit Diagnoses Not on filedocumented in this encounter Care Teams Animation Director Relationship Specialty Start Date End Date Ludwin Mathew MD [address] [address] PCP - General Family Medicine 05/22/25 documented as of this encounter
--- OUTSIDE RECORDS SUMMARY | 2025-06-21 09:49 | XMS_ITS | Encounter Summary ---
Author Organization [facility] Address [address] [place] [address] Phone Care Team Providers Care Stone Driller Name Role Phone Ludwin Mathew MD Primary Care Provider [phone] Encounter Details Date Type Department Care Team (Late Contact Info) Description 09/09/2024 Documentation Only [facility] [address] [place] [address] [place], [place] [address] [place] [address] Social History Tobacco Use Types [...] Office Visit [facility] [address] [place] [address] Rosangela Reynolds MD [address] [place] [address] documented as of this encounter Visit Diagnoses Not on filedocumented in this encounter Care Teams Stone Driller Relationship Specialty Start Date End Date Ludwin Mathew MD [address] [address] PCP - General Family Medicine 05/22/25 documented as of this encounter
--- OUTSIDE RECORDS SUMMARY | 2025-06-21 09:49 | XMS_ITS | Encounter Summary ---
Author Organization [facility] Address [address] [place] [address] Phone Care Team Providers Care Battery Container Inspector Name Role Phone Ludwin Mathew MD Primary Care Provider [phone] Encounter Details Date Type Department Care Team (Late st Contact Info) Description 10/06/2024 Documentation Only [facility] [address] [place] [address] [place], [place] [address] [place] [address] Social History Tobacco Use Types [...] Office Visit [facility] [address] [place] [address] Rosangela Reynolds MD [address] [place] [address] documented as of this encounter Visit Diagnoses Not on filedocumented in this encounter Care Teams Battery Container Inspector Relationship Specialty Start Date End Date Ludwin Mathew MD [address] [address] PCP - General Family Medicine 05/22/25 documented as of this encounter
[2025-06-21 10:12] VITALS: BP 116/74
== END 2025-06-21 10:21 | disposition home or self-care (01) ==
LOC: HO.HMCFM 09:28
PROVIDERS: PCP Family Medicine; Visit Provider Family Medicine
DX: E11.9 Type 2 diabetes mellitus without complications (principal); I10 Essential (primary) hypertension; E11.65 Type 2 diabetes mellitus with hyperglycemia

== ENCOUNTER → 2025-06-21 09:27 | Outpatient (BNVA) | payer OTHER, SELFPAY | PROVIDERS: PCP Family Medicine; Visit Provider Family Medicine | DX: E11.9 Type 2 diabetes mellitus without complications (principal); I10 Essential (primary) hypertension; Z79.4 Long term (current) use of insulin | CPT/HCPCS: 83036 ==